=== PATIENT | male | born 1940 | race Caucasian/White ===

== ENCOUNTER 2016-06-05 08:25 | Outpatient (CLI) | payer MEDICARE, OTHER | END 2016-06-05 08:26 | disposition home or self-care (01) | DX: I25.10 Atherosclerotic heart disease of native coronary artery without angina pectoris (principal); R97.20 Elevated prostate specific antigen [PSA]; D47.3 Essential (hemorrhagic) thrombocythemia ==

== ENCOUNTER 2016-08-01 06:54 | Day surgery (SDC) | payer MEDICARE, OTHER ==
[2016-08-01] MEDS ORDERED: LACTATED RINGERS 1,000 ML IV ONE (07:39)
[2016-08-01] MEDS ORDERED: fentaNYL 100 MCG/2 ML VIAL IVP ONE (08:13)
[2016-08-01] MEDS ORDERED: MIDAZOLAM 2 MG/2 ML VIAL IVP ONE (08:13)
== END 2016-08-01 06:55 | disposition home or self-care (01) ==
PROC: 0DJD8ZZ Inspection of Lower Intestinal Tract, Via Natural or Artificial Opening Endoscopic (ICD-10-PCS; principal; 2016-08-01 08:15)
DX: K57.32 Diverticulitis of large intestine without perforation or abscess without bleeding (principal); K57.30 Diverticulosis of large intestine without perforation or abscess without bleeding; K64.4 Residual hemorrhoidal skin tags; K64.8 Other hemorrhoids; Z79.82 Long term (current) use of aspirin; I25.10 Atherosclerotic heart disease of native coronary artery without angina pectoris; Z95.0 Presence of cardiac pacemaker; Z95.5 Presence of coronary angioplasty implant and graft
CPT/HCPCS: 45378; J7120

== ENCOUNTER 2017-03-19 08:35 | Outpatient (CLI) | payer MEDICARE, OTHER | END 2017-03-19 08:36 | disposition home or self-care (01) | LOC: LAB.WCP 08:35 | PROVIDERS: ATTEND Physician Assistant Medical | DX: N39.0 Urinary tract infection, site not specified (principal) | CPT/HCPCS: 87077; 87086 ==

== ENCOUNTER 2017-04-09 08:00 | Outpatient (CLI) | payer MEDICARE, OTHER | END 2017-04-09 08:01 | disposition home or self-care (01) | LOC: LAB.WCP 08:00 | PROVIDERS: ATTEND Physician Assistant Medical | DX: N39.0 Urinary tract infection, site not specified (principal) | CPT/HCPCS: 87086 ==

== ENCOUNTER 2017-07-29 10:22 | Outpatient (CLI) | payer MEDICARE, OTHER | END 2017-07-29 10:23 | disposition home or self-care (01) | LOC: SC 10:22 | PROVIDERS: ATTEND Internal Medicine Pulmonary Disease | DX: R06.83 Snoring (principal); I25.10 Atherosclerotic heart disease of native coronary artery without angina pectoris | CPT/HCPCS: 99203; G0463; 99212 ==

== ENCOUNTER 2017-09-12 21:36 | Outpatient (CLI) | payer MEDICARE, OTHER | END 2017-09-12 21:37 | disposition home or self-care (01) | LOC: SC 21:36 | PROVIDERS: ATTEND Internal Medicine Pulmonary Disease | DX: G47.61 Periodic limb movement disorder (principal) | CPT/HCPCS: 95810 ==

== ENCOUNTER 2017-10-15 13:59 | Outpatient (CLI) | payer MEDICARE, OTHER | END 2017-10-15 14:00 | disposition home or self-care (01) | LOC: SC 13:59 | PROVIDERS: ATTEND Nurse Practitioner Family | DX: R06.83 Snoring (principal); G47.61 Periodic limb movement disorder; G47.00 Insomnia, unspecified | CPT/HCPCS: 99214; G0463; 99212 ==

== ENCOUNTER 2017-10-24 07:30 | Outpatient (CLI) | payer MEDICARE, OTHER ==
[2017-10-24 12:53] LABS: CHOL/HDL RATIO 4.5 (<5.0); CHOLESTEROL 168 mg/dL; HDL CHOLESTEROL 37 mg/dL; LDL CHOLESTEROL,CALCULATED 115 mg/dL; LDL/HDL RATIO 3.1 (<3.6); VLDL CHOLESTEROL 16 mg/dL
== END 2017-10-24 07:31 | disposition home or self-care (01) ==
LOC: LAB.WCP 07:30
PROVIDERS: ATTEND Physician Assistant Medical
DX: I25.10 Atherosclerotic heart disease of native coronary artery without angina pectoris (principal); R53.83 Other fatigue
CPT/HCPCS: 36415; 80061; 82728; 83721

== ENCOUNTER 2018-03-17 08:01 | Outpatient (CLI) | payer MEDICARE, OTHER ==
[2018-03-17 08:29] LABS: BASOPHILS # (AUTO) 0.1 10^3/uL (0.0-0.1); BASOPHILS % (AUTO) 0.8 %; EOSINOPHILS # (AUTO) 0.2 10^3/uL (0.0-0.7); EOSINOPHILS % (AUTO) 1.3 %; HGB - HEMOGLOBIN 16.1 g/dL (14.0-18.0); LYMPHOCYTES # (AUTO) 1.1 10^3/uL (1.5-3.5); LYMPHOCYTES % (AUTO) 9.2 %; MEAN CORPUSCULAR HEMOGLOBIN 46.6 pg (27.0-31.0); MEAN CORPUSCULAR HGB CONC 35.4 g/dL (32.0-36.0); MEAN PLATELET VOLUME 9.5 fL (7.4-11.4); MONOCYTES % (AUTO) 8.2 %; NEUTROPHILS % (AUTO) 80.5 %; PLT - PLATELET COUNT 482 10^3/uL (130-450); RED BLOOD COUNT 3.44 10^6/uL (4.70-6.10); RED CELL DISTRIBUTION WIDTH 13.2 % (12.0-15.0); WHITE BLOOD COUNT 12.4 x10^3/uL (4.8-10.8)
[2018-03-17 08:32] LABS: MEAN CORPUSCULAR VOLUME 131.7 fL (80.0-94.0)
== END 2018-03-17 08:02 | disposition home or self-care (01) ==
LOC: LAB 08:01
PROVIDERS: ATTEND Radiology Therapeutic Radiology
DX: D47.1 Chronic myeloproliferative disease (principal)
CPT/HCPCS: 36415; 85025

== ENCOUNTER 2018-04-09 17:32 | Inpatient (IN) | payer MEDICARE, OTHER ==
--- NOTE | 2018-04-09 18:39 | XRAY Report ---
Reason: chest pain Procedure Date: 04/09/2018 Accession Number: [id number] / [id number] Procedure: XR - Chest 1 View X-Ray CPT Code: 85708 FULL RESULT: EXAM: CHEST RADIOGRAPHY EXAM DATE: 04/09/2018 06:27 PM. CLINICAL HISTORY: Chest pain. Cough. COMPARISON: CHEST 2 VIEW PA/LAT 04/08/2018 10:09 AM. TECHNIQUE: 1 view. FINDINGS: Lungs/Pleura: Large left pleural effusion, significantly worse, with overlying atelectasis/infiltrate. Otherwise clear lungs. No pneumothorax. No right effusion. The Mediastinum: Prior CABG. Heart size obscured by large pleural effusion. Other: No bony abnormalities noted. IMPRESSION: Large left pleural effusion, significantly increased since prior, with overlying atelectasis/infiltrate. RADIA
[2018-04-09 18:46] LABS: BASOPHILS # (AUTO) 0.3 10^3/uL (0.0-0.1); BASOPHILS % (AUTO) 0.8 %; EOSINOPHILS # (AUTO) 0.4 10^3/uL (0.0-0.7); EOSINOPHILS % (AUTO) 1.4 %; HGB - HEMOGLOBIN 14.1 g/dL (14.0-18.0); LYMPHOCYTES # (AUTO) 1.3 10^3/uL (1.5-3.5); LYMPHOCYTES % (AUTO) 4.2 %; MEAN CORPUSCULAR HEMOGLOBIN 39.7 pg (27.0-31.0); MEAN CORPUSCULAR HGB CONC 32.8 g/dL (32.0-36.0); MEAN CORPUSCULAR VOLUME 121.1 fL (80.0-94.0); MEAN PLATELET VOLUME 9.4 fL (7.4-11.4); MONOCYTES # (AUTO) 2.3 10^3/uL (0.0-1.0); MONOCYTES % (AUTO) 7.3 %; NEUTROPHILS # (AUTO) 27.4 10^3/uL (1.5-6.6); NEUTROPHILS % (AUTO) 86.3 %; RED BLOOD COUNT 3.54 10^6/uL (4.70-6.10); RED CELL DISTRIBUTION WIDTH 20.5 % (12.0-15.0); WHITE BLOOD COUNT 31.8 x10^3/uL (4.8-10.8)
[2018-04-09 18:49] LABS: ALBUMIN 3.2 g/dL (3.2-5.5); ALBUMIN/GLOBULIN RATIO 0.8 (1.0-2.2); BILIRUBIN,TOTAL 1.5 mg/dL (0.2-1.0); CALCIUM 8.6 mg/dL (8.5-10.3); CREATININE 1.1 mg/dL (0.6-1.2); TOTAL PROTEIN 7.3 g/dL (6.7-8.2)
[2018-04-09 18:51] LABS: PLT - PLATELET COUNT 1020 10^3/uL (130-450)
[2018-04-09 19:25] LABS: PLATELET ESTIMATE, MANUAL INCREASED (>450,000) (NORMAL); PLATELET MORPHOLOGY 2+ GIANT PLATELETS (NORMAL)
[2018-04-09] MEDS ORDERED: SODIUM CHLORIDE FLUSH 0.9% 10 ML SYRINGE IVP PRN (20:49)
[2018-04-09] MEDS ORDERED: ONDANSETRON 4 MG/2 ML VIAL IVP PRN (20:49)
[2018-04-09] MEDS ORDERED: ONDANSETRON ODT 4 MG TABLET TL PRN (20:49)
--- NOTE | 2018-04-09 21:15 | ED Physician Documentation ---
PD HPI DYSPNEA - Stated complaint Stated Complaint: SOA - Chief complaint Chief Complaint: Cardiac - History obtained from History obtained from: Patient, Family - History of Present Illness Timing - onset: How many days ago (5) Timing - duration: Days (5) Timing - details: Gradual onset, Still present, Waxing and waning Pain level max: 0 Pain level now: 0 Inciting event(s): No: URI, Exercise, Immobilization/travel Improved by: Rest Worsened by: Exertion, Coughing Associated symptoms: Fever, Cough, Chest pain / discomfort (Only with coughing). No: Hemoptysis, Wheezing Similar symptoms before: Diagnosis (Possible pneumonia) Recently seen: Clinic (Seen by PCP a couple of days ago and placed on Amoxil) - Additional information Additional information: 77-year-old male with history of basal cell carcinoma mostly in the face and being treated with radiation and blood dyscrasia or cancer per here with complaint of cough and shortness of breath for the past 5-6 days. Was seen by his primary doctor a couple of days ago and the chest x-ray could be possible pneumonia so he was started. Patient stated that he tends to have nasal congestion and this makes breathing a little bit harder. Denies any trauma, travel or recent hospitalization or sick contacts. Review of Systems Ten Systems: 10 systems reviewed and negative Constitutional: reports: Fever Cardiac: reports: Chest pain / pressure (Only with coughing). denies: Palpitations Respiratory: reports: Dyspnea (With exertion), Cough (Dry cough). denies: Hemoptysis, Wheezing GI: denies: Abdominal Pain Skin: reports: Rash (On the face related to radiation of basal cell carcinoma in the skin) Neurologic: denies: Generalized weakness PD PAST MEDICAL HISTORY - Past Medical History Cardiovascular: High cholesterol, Coronary artery disease, Arrhythmia, Other Respiratory: Shortness of breath, Other Endocrine/Autoimmune: None GI: Other : Benign prostate hypertrophy HEENT: Chronic sinusitis, Chronic hearing loss Psych: None Musculoskeletal: Osteoarthritis Derm: Other - Past Surgical History Past Surgical History: Yes General: Appendectomy, Colonoscopy, Other Ortho: Knee replacement Cardiovascular: CABG, Coronary stent, Pacemaker HEENT: Tonsil/Adenoidectomy Derm: Skin cancer surgery - Present Medications Home Medications: Ambulatory Orders Medication Instructions Recorded Confirmed Lactobacillus Acidophilus 1 each PO DAILY 10/20/12 02/03/18 [Acidophilus] Multivitamin [Multivitamins] 1 each PO DAILY 10/20/12 02/03/18 RX: Aspirin Chewable [[place] 81 mg PO DAILY 10/20/12 02/03/18 Aspirin] Nitroglycerin [Nitrostat] 0.4 mg SL Q5MIN PRN 02/16/13 02/03/18 Amoxicillin/Potassium Clav 1 04/09/18 [Amox-Clav 875-125 mg Tablet] RX: traMADol [Ultram] 04/09/18 - Allergies Allergies/Adverse Reactions: Allergies Allergy/AdvReac Type Severity Reaction Status Date / Time No Known Drug Allergies Allergy Verified 04/09/18 17:38 - Social History Does the pt smoke?: No Smoking Status: Never smoker Does the pt have substance abuse?: No - Immunizations Immunizations are current?: Yes PD ED PE NORMAL - Vitals Vital signs reviewed: Yes - General General: Alert and oriented X 3, No acute distress, Well developed/nourished - HEENT HEENT: EOMI, Moist mucous membranes, Pharynx benign - Neck Neck: Supple, no meningeal sign - Cardiac Cardiac: RRR, No murmur - Respiratory Respiratory: No respiratory distress, Clear bilaterally - Abdomen Abdomen: Normal bowel sounds, Soft, Non tender, Non distended - Derm Derm: Warm and dry, Other (Face particularly in the nose and around the area where radiation occurs is mildly reddened. Noted lip and on the left cheek skin lesions.) - Extremities Extremities: No deformity - Neuro Neuro: Alert and oriented X 3, Normal speech - Psych Psych: Normal mood, Normal affect Results - Vitals Vitals: Vital Signs - 24 hr 04/09/18 04/09/18 17:34 19:26 Temperature 37.5 C Heart Rate 88 74 Respiratory 30 H 30 H Rate Blood Pressure 159/82 H 122/67 O2 Saturation 90 L 94 Oxygen O2 Source Nasal cannula Oxygen Flow Rate 2 - EKG (time done) 1738 Rate: Rate (enter#) Rhythm: NSR [place]: Normal Intervals: Normal [place] QRS: Normal Ischemia: Normal ST segments - Labs Labs: Laboratory Tests 04/09/18 04/09/18 04/09/18 18:08 18:31 18:31 WBC 31.8 H RBC 3.54 L Hgb 14.1 Hct 42.8 MCV 121.1 H MCH 39.7 H MCHC 32.8 RDW 20.5 H Plt Count 1020 H* MPV 9.4 Neut # (Auto) 27.4 H Lymph # (Auto) 1.3 L [place] # (Auto) 2.3 H Eos # (Auto) 0.4 Baso # (Auto) 0.3 H Absolute Nucleated RBC 0.01 Nucleated RBC % 0.0 Manual Slide Review Indicated WBC Morphology NORMAL APPEARANCE Platelet Estimate INCREASED (>450,000) Platelet Morphology 2+ GIANT PLATELETS RBC Morph Micro Appear 2+ ANISOCYTOSIS PT INR Sodium 133 L Potassium 4.5 Chloride 99 L Carbon Dioxide 24 Anion Gap 10.0 BUN 32 H Creatinine 1.1 Estimated GFR (MDRD) 65 L Glucose 131 H Calcium 8.6 Total Bilirubin 1.5 H AST 17 ALT 18 Alkaline Phosphatase 118 Troponin I 0.04 B-Natriuretic Peptide Total Protein 7.3 Albumin 3.2 Globulin 4.1 Albumin/Globulin Ratio 0.8 L Lipase 19 L 04/09/18 04/09/18 18:31 18:31 WBC RBC Hgb Hct MCV MCH MCHC RDW Plt Count MPV Neut # (Auto) Lymph # (Auto) [place] # (Auto) Eos # (Auto) Baso # (Auto) Absolute Nucleated RBC Nucleated RBC % Manual Slide Review WBC Morphology Platelet Estimate Platelet Morphology RBC Morph Micro Appear PT 19.3 H INR 1.7 H Sodium Potassium Chloride Carbon Dioxide Anion Gap BUN Creatinine Estimated GFR (MDRD) Glucose Calcium Total Bilirubin AST ALT Alkaline Phosphatase Troponin I B-Natriuretic Peptide 202 H Total Protein Albumin Globulin Albumin/Globulin Ratio Lipase PD MEDICAL DECISION MAKING - ED course Complexity details: reviewed results, re-evaluated patient (2030Patient laying in bed in no acute distress. Patient coughs intermittently but nonproductively. Patient denies any chest pain or shortness of breath when he is not coughing or exerting himself. Pulse ox 93% with 2 L of nasal cannula.), considered differential (Pneumonia, PE, ACS, bronchitis, pleural effusion, nasal congestion, URI), d/w patient, d/w family (2030Patient and informed of test results,Stated she is aware of all the abnormal labs and agreed to an admission. ), d/w PMD (2036Case discussed with hospitalist Dr Thornton. She stated she will consult patient's oncologist prior to admitting.2099Dr. stated she will admit the patient but will consult the general surgeon so the patient can have a thoracocentesis tonight.) Departure - Departure Disposition: 66 [facility] DC/Xfer Clinical Impression: Pleural effusion, Thrombocytosis Leukocytosis Qualifiers: Leukocytosis type: unspecified Qualified Code(s): D72.829 - Elevated white blood cell count, unspecified Condition: Stable Discharge Date/Time: 04/09/18 23:32
[2018-04-09 21:23] LABS: INR 1.7 (0.8-1.2); PT - PROTHROMBIN TIME 19.3 secs (9.9-12.6)
--- NOTE | 2018-04-09 21:30 | CONSULTATION NOTE ---
Referring Provider Consult Date: 04/09/18 Chief Complaint - Chief Complaint Chief Complaint: dyspnea History of Present Illness - History of Present Illness HPI Comment/Other: 77 yo man re-presenting with SOB and a rapidly-expanding left pleural effusion. History - Past Medical History Cardiovascular: reports: High cholesterol, Coronary artery disease, Arrhythmia, Other Respiratory: reports: Shortness of breath, Other Endocrine/Autoimmune: reports: None GI: reports: Other : reports: Benign prostate hypertrophy HEENT: reports: Chronic sinusitis, Chronic hearing loss Psych: reports: None Musculoskeletal: reports: Osteoarthritis Derm: reports: Other MRSA Hx?: No - Past Surgical History General: reports: Appendectomy, Colonoscopy, Other Ortho: reports: Knee replacement Cardiovascular: reports: CABG, Coronary stent, Pacemaker HEENT: reports: Tonsil/Adenoidectomy Derm: reports: Skin cancer surgery Meds/Allgy - Home Medications Home Medications: Ambulatory Orders Medication Instructions Recorded Confirmed Aspirin Chewable [[place] 81 mg PO DAILY 10/20/12 02/03/18 Aspirin] Lactobacillus Acidophilus 1 each PO DAILY 10/20/12 02/03/18 [Acidophilus] Multivitamin [Multivitamins] 1 each PO DAILY 10/20/12 02/03/18 Nitroglycerin [Nitrostat] 0.4 mg SL Q5MIN PRN 02/16/13 02/03/18 Amoxicillin/Potassium Clav 1 04/09/18 [Amox-Clav 875-125 mg Tablet] traMADol [Ultram] 04/09/18 - Allergies Allergies/Adverse Reactions: Allergies Allergy/AdvReac Type Severity Reaction Status Date / Time No Known Drug Allergies Allergy Verified 04/09/18 17:38 Review of Systems - Respiratory Respiratory: reports: Cough, SOB at rest Exam - Vital Signs Vital Signs: Vital Signs x48h Temp Pulse Resp BP Pulse Ox 04/09/18 19:26 74 30 H 122/67 94 04/09/18 17:34 37.5 C 88 30 H 159/82 H 90 L - Physical Exam General Appearance: positive: Mild distress Eyes Bilateral: positive: Normal inspection ENT: positive: ENT inspection nml Neck: positive: Nml inspection Respiratory: positive: Other (decreased BS on left) Abdomen: positive: Non-tender Back: positive: Nml inspection Skin: positive: Color nml Extremities: positive: Non-tender Neurologic/Psychiatric: positive: Oriented x3 Conclusion/Plan - Diagnosis Diagnosis: left pleural effusion - Plan Plan: Pt is in respiratory distress with a large left pleural effusion. After discussion with the pt, we will place a CT. - Lab Results Fish Bones: 04/09/18 18:31 04/09/18 18:31 - Diagnostic Imaging Results Diagnostic Imaging Results: positive: Final report reviewed
[2018-04-09] MEDS ORDERED: LIDOCAINE 1% 2 ML VIAL ONE (21:52)
[2018-04-09] MEDS ORDERED: LIDOCAINE 1%-EPI 1:100000 30 ML MDV ONE (22:07)
--- NOTE | 2018-04-09 22:27 | PROCEDURE REPORT ---
Hospitalist Procedure Note - Procedure Note Procedure Note: Left chest tube placement The risks and benefits were explained to the pt and he agreed to the procedure. The left chest was prepped and draped and timeout performed. 15 ml of local anesthetic was infused into the subcutaneous tissue and intercostal muscle overlying the 6th intercostal space, mid-axillary line. A 2 cm incision was made in the skin overlying the infusate. The pleural space was entered bluntly. A [address] was inserted into the pleural space. Light yellow fluid was obtained. The tube was connected to the pleurovac and secured with stitched and tape. A CXR was ordered. EBL 4 ml Comp none
--- NOTE | 2018-04-09 22:45 | XRAY Report ---
Reason: post chest tube insertion Procedure Date: 04/09/2018 Accession Number: [id number] / [id number] Procedure: XR - Chest 1 View X-Ray CPT Code: 57724 FULL RESULT: EXAM: CHEST RADIOGRAPHY EXAM DATE: 04/09/2018 10:38 PM. CLINICAL HISTORY: Post chest tube insertion. COMPARISON: An earlier study of this same date. TECHNIQUE: 1 view. FINDINGS: Lungs/Pleura: Moderate left pleural effusion, decreased since earlier study. Diffuse hazy prominence of lung markings. Atelectasis in left base. No definite pneumothorax. Mediastinum: Moderate to marked cardiomegaly, probably unchanged. Diffuse vascular fullness. Other: Permanent pacemaker on the left with intact leads. Status post median sternotomy and other chronic findings. Left chest tube in place. IMPRESSION: Slightly decreased left pleural effusion following chest tube placement. RADIA
--- NOTE | 2018-04-09 23:17 | HISTORY & PHYSICAL EXAMINATION ---
Chief Complaint - Chief Complaint Chief Complaint: Pleuritis History of Present Illness - Admitted From Admitted From:: ER - History Obtained From Records Reviewed: Yes History obtained from: Patient and Exam Limitations: Hearing Aid - History of Present Illness HPI Comment/Other: 77 yo male pt with JAK2 positive, myeloproliferative neoplasm, CAD, CABG w/ 2 stents, chronic sinusitis, bronchitis, anemia from hydroxyurea treatment, squamous and basal cell carcinoma presents to the emergency department with pleuristic chest pain induced by cough of 10 days. Pt has been receiving 22 radiation treatments for squamous cell carcinoma since March 09. Squamous cell carcinoma located on left nares and central upper vermilion border. Pt hydroxyurea treatment for was halted on March 07 due to radiation treatment. Pt states 10 days ago he started to have a productive cough with yellow, brown sputum. Pt states lethargy, decreased appetite over past 3 days and weight gain of 8 pounds during this duration. Pt has received over the counter cough suppressants with no suppression. Pt states the pain induced by the cough is located near the left 4th rib and 10-12th rib. Pt states he had one episode of nausea during a coughing episode, but denies vomiting, fever, chills, chest pain. Pt was seen by Sunsihne STALLINGS, 1 day prior to visit and a chest x- ray was completed revealing effusion and pleural thickening - he was not tachypneic, afebrile, non-toxic. Pt continued to have productive cough and pleuritic pain. Pt also confirms abdominal pain stating that he has not had a bowel movement for 4 days which is unusual for him. His states she gave him prunes, but he has not had a bm. In the ER he was afebrile. Tachypneic, hypoxic, decreased sounds left lung, wheezing on the right. CXR showed a much larger left pleural effusion that yesterday. Surgery was consulted and left sided chest tube placed for pleural effusion. Pt has had 1100 cc of fluid drained from his left pluritic space. Pt confirms that his shortness of breath is improved. History - Past Medical History Cardiovascular: reports: High cholesterol, Coronary artery disease, Arrhythmia, Other (CABG with 2 stents placed ) Respiratory: reports: Shortness of breath, Other Neuro: reports: None Endocrine/Autoimmune: reports: None GI: reports: Diverticulitis, Cholelithiasis UI APPLICATION DEVELOPER: reports: None : reports: Benign prostate hypertrophy HEENT: reports: Chronic sinusitis, Chronic hearing loss Psych: reports: None Musculoskeletal: reports: Osteoarthritis Derm: reports: Other (Squamous and Basal Cell Carcinoma) MRSA Hx?: No - Past Surgical History General: reports: Appendectomy, Colonoscopy, Other Ortho: reports: Knee replacement Cardiovascular: reports: CABG, Coronary stent, Pacemaker HEENT: reports: Tonsil/Adenoidectomy Derm: reports: Skin cancer surgery - Family & Social History Family History: Mother: , Asthma, CAD, Father: , CVA/TIA, Brother: Living arrangement: At home Living Situation: With spouse/s.o. Social History Notes: 77 yo father of 2 boys lives with his . Retired [employer] in 1987 moved [place] [facility]. 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 Have sailed all around the world. Pt grew up with smoking parents, but did not smoke. He drinks 2 scotches per night. He denies any illicit drug use. - Substance History Use: Uses substance without health or social issues: Alcohol Abuse: Recurrent use of substance despite neg consequences: NONE Dependence: Experiences withdrawal or developed tolerances: NONE - POLST Patient has POLST: No POLST Status: Full Code Meds/Allgy - Home Medications Home Medications: Ambulatory Orders Medication Instructions Recorded Confirmed Aspirin Chewable [[facility] [place] 81 mg PO DAILY 10/20/12 02/03/18 Aspirin] Lactobacillus Acidophilus 1 each PO DAILY 10/20/12 02/03/18 [Acidophilus] Multivitamin [Multivitamins] 1 each PO DAILY 10/20/12 02/03/18 Nitroglycerin [Nitrostat] 0.4 mg SL Q5MIN PRN 02/16/13 02/03/18 Amoxicillin/Potassium Clav 1 04/09/18 [Amox-Clav 875-125 mg Tablet] traMADol [Ultram] 04/09/18 - Allergies Allergies/Adverse Reactions: Allergies Allergy/AdvReac Type Severity Reaction Status Date / Time No Known Drug Allergies Allergy Verified 04/09/18 17:38 Review of Systems - Constitutional Constitutional: reports: Fatigue, Weakness, Poor appetite, Weight gain. denies: Fever, Chills - Eyes Eyes: denies: Pain, Blurred vision - Ears, Nose & Throat Ears, Nose & Throat: reports: Nasal pain (Squamous and Basal Cell Carcinoma), Nasal discharge (Squamous and Basal Cell Carcinoma), Nasal congestion (Chronic sinusitis), Postnasal drainage (Chronic sinusitis). denies: Ear pain - Cardiovascular Cariovascular: denies: Irregular heart rate, Palpitations - Respiratory Respiratory: reports: Cough, Sputum production (yellow, green), Wheezing (bilateral), SOB at rest, SOB with exertion, Pleuritic pain (right sided 4th rib to 10th rib) - Gastrointestinal Gastrointestinal: reports: Abdominal pain, Constipation (Last BM) - Genitourinary Genitourinary: denies: Dysuria, Frequency - Musculoskeletal Musculoskeletal: denies: Muscle pain - Integumentary Integumentary: reports: Lesions (radiation skin changes to nasal border and netta border), Dryness (nasal and upper netta border) - Neurological Neurological: reports: General weakness. denies: Headache - Psychiatric Psychiatric: denies: Depression - Endocrine Endocrine: denies: Polyuria - Hematologic/Lymphatic Hematologic/Lymphatic: reports: Anemia (Previously due to Hydroxyurea treatment) Prior Level of Functionality: Pt is retired from the [employer] where he was stationed in the [facility] and [facility]. 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 Pt has lived and sailed all over the world. Pt is able to ambulate on his own and assists his with ADL. Pt does not use a walker or any walk assistance. Exam - Vital Signs Reviewed Vital Signs: Yes Vital Signs: Vital Signs x48h Temp Pulse Resp BP Pulse Ox 04/09/18 22:37 79 24 125/77 93 04/09/18 22:19 74 32 H 115/63 93 04/09/18 22:11 76 30 H 137/66 H 93 04/09/18 22:09 65 27 H 119/64 92 04/09/18 22:01 76 93 H 116/73 4 L 04/09/18 19:26 74 30 H 122/67 94 04/09/18 17:34 37.5 C 88 30 H 159/82 H 90 L - Physical Exam General Appearance: positive: Alert, Mild distress (Pleuritic chest pain with chest tube placed) Eyes Bilateral: positive: PERRL, EOMI ENT: positive: Other (left hearing aid). negative: ENT inspection nml (Squamous cell carcinoma on left nasal border and upper netta), No signs of dehydration (crusted lesions from radiation) Neck: positive: Nml inspection Respiratory: positive: No respiratory distress, Wheezes (bilaterally), Other (chest tube site hurts). negative: Breath sounds nml (decreased breath sound on left) Cardiovascular: positive: Regular rate & rhythm, No murmur, No gallop Peripheral Pulses: positive: 2+ Abdomen: positive: Nml bowel sounds, Tenderness (diffuse). negative: Non-tender (diffuse), No distention (mild) Rectal: negative: Bloody stool Back: positive: Nml inspection Skin: positive: Dry, Other (squamous cell on left nasal nare and upper netta border, the surrounding skin is pink, edematous, warm, dry (no oozing), applying petroleum jelly) Extremities: positive: Non-tender, Full ROM, Nml appearance Neurologic/Psychiatric: positive: Oriented x3, CN's nml (2-12), Motor nml, Mood/affect nml Conclusion/Plan - Problem List (1) Acute respiratory failure with hypoxia Conclusion/Plan: Pt does not require oxygen at home but here he is oxygen saturation at 94% on 4L. Pt seen by PCP one day prior with productive cough following radiation therapy to face for skin cancer. Pt chest xray reveals increased large left pleural effusion, significantly increased since prior, with overlying ate lectasis/infiltrate. Pt tachypnic and toxic. Chest tube placement by general surgeon consult. Plueral fluid and blood cultures sent. Erythromycin and Rocephin started. Pt admitted to service. Plan: admit inpatient status hypoxia and resp failure improved with thoracentesis in ER. Pleural fluid and blood cultures sent off Azithromycin and Rocephin with alterations based on culture/sensitivity Chest tube monitor output continue pressure based on surgery consult Monitor oxygen saturation (2) Pneumonia Conclusion/Plan: Large left pleural effusion, significantly increased since prior, with overlying atelectasis/infiltrate. Patient received chest tube with surgery consult. 1100 cc pleural fluid drained. Pt started on Azithromycin and Rocephin with blood and pleural fluid sent for diagnostics. Plan: Blood and Pleural fluid diagnostics to be reviewed Chest tube monitored with pressure based on surgery consult Azithromycin and Rocephin with alterations based on culture/sensitivities Monitor oxygen saturation Qualifiers: Pneumonia type: due to unspecified organism Laterality: left Lung location: unspecified part of lung Qualified Code(s): J18.9 - Pneumonia, unspecified organism (3) Pleural effusion Conclusion/Plan: Chest X-ray: FINDINGS: Lungs/Pleura: Large left pleural effusion, significantly worse, with overlying atelectasis/infiltrate. Otherwise clear lungs. No pneumothorax. No right effusion. The Mediastinum: Prior CABG. Heart size obscured by large pleural effusion. Other: No bony abnormalities noted. IMPRESSION: Large left pleural effusion, significantly increased since prior, with overlying atelectasis/infiltrate. Patient evaluated with increased pleural effusion from 1 day prior outpatient chest x-ray with failed outpatient treatment. Pt is tachypnic with a productive cough. 1100 cc of fluid drained from left pleural cavity following chest tube placement. Pleural fluid sent for diagnostics. Right now we are thinking his pleural effusion is from pneumonioa. Pt placed rocephin and azithromycin and will alter according to cultures and sensitivity. However, must consider other causes of pleural effusion such as neoplasm, chf, etc. Fluid sent for cell count, chemistries, culture AND cytologies. Plan: Blood and pleural diagnostics Chest tube placed, continue with pressure based on surgery consult azithromycin and Rocephin with alterations based on sensitivities (4) Myeloproliferative disorder Conclusion/Plan: Chronic issue being treated by Dr. Glass. Hydroxurea placed on hold March 07 due to radiation for squamous cell. As such platelets yasmani. Consulted physician international logistics coordinator for Dr. Glass and discussed the treatment plan with advise to treat admit and not transfer. Dr. Adler feels this may be bone marrow activation in the face of infection and would expect to see a rise in WBC and platelets. Advised to treat the infection and if WBC/platelets do not respond, consider transfer. Plan: Monitor CBC and platelet continue home medications will speak to Dr. Glass in am to see when to resume hydroxyurea. (5) Radiation dermatitis Conclusion/Plan: 22 rounds of radiation started on March 09 for squamous and Basal cell with last radiation on Friday. Pt radiation dermatitis on left nare and upper netta border. Plan: Petroleum for dryness Monitor erythema (6) Squamous cell carcinoma Conclusion/Plan: 22 radiation treatment within the past month for squamous cell and basal cell carcinoma Plan: Monitor radiation dermatitis (7) Basal cell carcinoma Conclusion/Plan: 22 radiation treatment within the past month for squamous cell and basal cell carcinoma Plan: Monitor radiation dermatitis Qualifiers: Basal cell carcinoma location: face Basal cell carcinoma face location: lip Qualified Code(s): C44.01 - Basal cell carcinoma of skin of lip (8) Hypertension Conclusion/Plan: Chronic condition controlled outpatient. Inpatient vitals of 137-115 systolic and 77-63 diastolic. Plan: Monitor vitals continue home medications Qualifiers: Hypertension type: essential hypertension Qualified Code(s): I10 - Essential (primary) hypertension (9) Periodic limb movement sleep disorder Conclusion/Plan: Chronic with treatment outpatient. Has already been seen by sleep lab and no AMAN. Plan: Monitor Continue outpatient treatment plan (10) BPH (benign prostatic hyperplasia) Conclusion/Plan: chronic issue with monitoring outpatient. Will make sure he doesn't develop LUTS while here. Plan: Monitor Continue outpatient treatment plan consider flomax if develops symptoms Qualifiers: Lower urinary tract symptom presence: symptoms absent Qualified Code(s): N40.0 - Benign prostatic hyperplasia without lower urinary tract symptoms - Lab Results Lab results reviewed: Yes Fish Bones: 04/09/18 18:31 04/09/18 18:31 - Diagnostic Imaging Results Diagnostic Imaging Results: positive: Final report reviewed Diagnostic Imaging Results Comments: Final Report PT NAME: MATTHIEU IVEY MR#: [id number] REG ER/ED AGE: 77 CI DT/TM: 04/09/18 PCP: Sunshine Gutierrez PA-C : 1940 ATT: SEX: M ORD: Ilda Bobby EXAM: [id number] XR/CXR1VW ([id number]) Reason: chest pain Procedure Date: 04/09/2018 Accession Number: [id number] / [id number] Procedure: XR - Chest 1 View X-Ray CPT Code: 21355 FULL RESULT: EXAM: CHEST RADIOGRAPHY EXAM DATE: 04/09/2018 06:27 PM. CLINICAL HISTORY: Chest pain. Cough. COMPARISON: CHEST 2 VIEW PA/LAT 04/08/2018 10:09 AM. TECHNIQUE: 1 view. FINDINGS: Lungs/Pleura: Large left pleural effusion, significantly worse, with overlying atelectasis/infiltrate. Otherwise clear lungs. No pneumothorax. No right effusion. The Mediastinum: Prior CABG. Heart size obscured by large pleural effusion. Other: No bony abnormalities noted. IMPRESSION: Large left pleural effusion, significantly increased since prior, with overlying atelectasis/infiltrate. [facility] Breastfeeding Peer Counselor: Reading Radiologist: Kanu Marino MD Releasing Radiologist: Kanu Marino MD Released Date Time: 04/09/181838 Report 38 cc: Sunshine Gutierrez PA-C; Ilda Bobby DO Principal Puncher Name: Kanu Marino Provider ID: [id number] Final Report PT NAME: MATTHIEU IVEY MR#: [id number] ADM IN/MS2 AGE: 77 CI DT/TM: 04/09/18 PCP: Sunshine Gutierrez PA-C : 1940 ATT: Autumn Paiz MD SEX: M ORD: Ilda Bobby DO EXAM: [id number] XR/CXR1VW ([id number]) Reason: post chest tube insertion Procedure Date: 04/09/2018 Accession Number: [id number] / [id number] Procedure: XR - Chest 1 View X-Ray CPT Code: 86943 FULL RESULT: EXAM: CHEST RADIOGRAPHY EXAM DATE: 04/09/2018 10:38 PM. CLINICAL HISTORY: Post chest tube insertion. COMPARISON: An earlier study of this same date. TECHNIQUE: 1 view. FINDINGS: Lungs/Pleura: Moderate left pleural effusion, decreased since earlier study. Diffuse hazy prominence of lung markings. Atelectasis in left base. No definite pneumothorax. Mediastinum: Moderate to marked cardiomegaly, probably unchanged. Diffuse vascular fullness. Other: Permanent pacemaker on the left with intact leads. Status post median sternotomy and other chronic findings. Left chest tube in place. IMPRESSION: Slightly decreased left pleural effusion following chest tube placement. [facility] Breastfeeding Peer Counselor: Reading Radiologist: Cornelius Barrett MD Releasing Radiologist: Cornelius Barrett MD Released Date Time: 04/09/182245 Report 45 cc: Sunshine Gutierrez PA-C; Ilda Bobby DO Principal Puncher Name: Cornelius Barrett Provider ID: [id number] - EKG Results EKG Interpreted Independently: Yes Core Measures - Anticipated LOS I expect patient to be DC'd or transferred within 96 hours.: Yes - DVT/VTE - Prophylaxis VTE/DVT Device ordered at admit?: Yes - Stroke - Rehab Assessment Rehab services assessment to be ordered?: No - AMI - Statin at Admit Aspirin Prescribed on Admit: No
[2018-04-10] MEDS: oxyCODONE 5 MG TABLET PO PRN ×3 (00:56→21:21)
[2018-04-10] MEDS: SODIUM CHLORIDE FLUSH 0.9% 10 ML SYRINGE IVP SCH ×3 (00:57→17:36)
[2018-04-10] MEDS ORDERED: IOVERSOL 320 50 ML VIAL ONE (06:04)
[2018-04-10 06:30] LABS: BASOPHILS % (AUTO) 0.5 %; EOSINOPHILS % (AUTO) 0.9 %; HGB - HEMOGLOBIN 13.7 g/dL (14.0-18.0); LYMPHOCYTES % (AUTO) 4.7 %; MEAN CORPUSCULAR HEMOGLOBIN 40.7 pg (27.0-31.0); MEAN CORPUSCULAR HGB CONC 33.2 g/dL (32.0-36.0); MEAN CORPUSCULAR VOLUME 122.7 fL (80.0-94.0); MEAN PLATELET VOLUME 9.3 fL (7.4-11.4); NEUTROPHILS % (AUTO) 86.9 %; RED BLOOD COUNT 3.36 10^6/uL (4.70-6.10); RED CELL DISTRIBUTION WIDTH 20.7 % (12.0-15.0); WHITE BLOOD COUNT 24.3 x10^3/uL (4.8-10.8)
[2018-04-10 06:33] LABS: CALCIUM 8.5 mg/dL (8.5-10.3)
[2018-04-10 06:36] LABS: PLT - PLATELET COUNT 914 10^3/uL (130-450)
[2018-04-10 06:38] LABS: ABNORMAL LYMPHS % (MANUAL) 0 %
[2018-04-10 07:07] LABS: BAND NEUTROPHILS % (MANUAL) 12 %; EOSINOPHILS # (MANUAL) 1.2 10^3/uL (0-0.7); LYMPHOCYTES # (MANUAL) 3.4 10^3/uL (1.5-3.5); LYMPHOCYTES % (MANUAL) 14 %; MONOCYTES # (MANUAL) 1.5 10^3/uL (0.0-1.0); NEUTROPHILS # (MANUAL) 18.2 10^3/uL (1.5-6.6); NEUTROPHILS % (MANUAL) 63 %
[2018-04-10 07:08] LABS: DIFFERENTIAL COMMENT MANUAL DIFFERENTIAL; PLATELET MORPHOLOGY 2+ GIANT PLATELETS (NORMAL)
[2018-04-10] MEDS ORDERED: IOPAMIDOL-300 100 ML VIAL ONE (07:30)
[2018-04-10] MEDS ORDERED: IOPAMIDOL-300 100 ML VIAL IVP ONE (08:45)
[2018-04-10] MEDS: LACTOBACILLUS RHAMNOSUS GG CAPSULE PO SCH (09:04)
[2018-04-10] MEDS: cefTRIAXone 2 GM in SODIUM CHLORIDE 0.9% MINIBAG 100 ML IV SCH (09:04)
[2018-04-10] MEDS: POLYETHYLENE GLYCOL 3350 17 GM PACKET PO SCH (09:05)
[2018-04-10] MEDS ORDERED: IOVERSOL 320 50 ML VIAL PO ONE (09:09)
--- NOTE | 2018-04-10 09:42 | CT Report ---
Reason: abd pain, hx of basal cell, stones Procedure Date: 04/10/2018 Accession Number: [id number] / [id number] Procedure: CT - Abdomen/Pelvis W/ CPT Code: FULL RESULT: EXAM: CT ABDOMEN AND PELVIS EXAM DATE: 04/10/2018 08:27 AM. CLINICAL HISTORY: Abd pain, hx of basal cell, stones. COMPARISONS: 04/23/2016. TECHNIQUE: Routine helical CT imaging was performed through the abdomen and pelvis. IV contrast: ISOVUE 300 100mL. Enteric contrast: No. Reconstructions: Coronal and sagittal. In accordance with CT protocol optimization, one or more of the following dose reduction techniques were utilized for this exam: automated exposure control, adjustment of mA and/or KV based on patient size, or use of iterative reconstructive technique. FINDINGS: L Liver: Normal. No masses. Gallbladder/Bile Ducts: Cholelithiasis Spleen: Enlarged 16 cm Pancreas: Normal. Adrenal Glands: Normal. Kidneys: Right kidney subcentimeter density too small to characterize mid pole. Left kidney unremarkable Peritoneal Cavity/Bowel: Diverticulosis most prominent in the sigmoid colon without inflammatory changes. No retroperitoneal adenopathy. No free fluid in the abdomen. Pelvic Organs: Bladder wall thickening anteriorly 11 mm. Prostate mildly enlarged with calcifications. No free fluid in the pelvis. Vasculature: No aneurysms or other significant abnormality. Bones: DJD spine right hip IMPRESSION: 1. Splenomegaly. 2. Cholelithiasis. 3. Bladder wall thickening anteriorly. 4. Diverticulosis [facility]
--- NOTE | 2018-04-10 09:43 | CT Report ---
Reason: hx basal cell, now w pleural effu abd pain Procedure Date: 04/10/2018 Accession Number: [id number] / [id number] Procedure: CT - Chest W/ CPT Code: FULL RESULT: EXAM: CT CHEST EXAM DATE: 04/10/2018 08:15 AM. CLINICAL HISTORY: Hx basal cell, now w pleural effu abd pain. COMPARISONS: 05/20/2014. TECHNIQUE: Routine helical CT imaging was performed through the chest. IV contrast: 100 cc Isovue-300. Reconstructions: Coronal and sagittal. In accordance with CT protocol optimization, one or more of the following dose reduction techniques were utilized for this exam: automated exposure control, adjustment of mA and/or KV based on patient size, or use of iterative reconstructive technique. FINDINGS: Lungs/Pleura: Loculated left pleural effusion. A portion of this is medial adjacent to the mediastinum measuring up to 1.8 cm transversely. Some of this is in the lateral, posterior lung base measuring up to 2.7 cm. Small amount of air in the pneumothorax at the lung base. Left-sided chest tube tip in the left lung apex. Atelectasis in the lingula. Consolidation or infiltrate in the left lower lobe superior, posterior and lateral. Small right effusion 1.2 cm with mild right basilar atelectasis. Mediastinum: Mildly prominent mediastinal lymph nodes including right precarinal 0.9 cm , right paratracheal 5 mm, subcarinal 1 cm, prevascular 5 mm. Trace pericardial effusion. Heart size mildly enlarged. 2-lead pacer tips in the right atrium and right ventricle. Poststernotomy. Bones: Degenerative changes in the spine. Poststernotomy. Other: None. IMPRESSION: 1. Loculated left effusion with portions in the anteromedial chest adjacent to the mediastinum 1.8 cm and portions along the left lung base 2.7 cm. Small amount of air in the pleural effusion at the left lung base. Left lower lobe consolidation or infiltrate. 2. Small right effusion 1.2 cm with mild right basilar atelectasis. 3. Mild mediastinal adenopathy [facility]
[2018-04-10] MEDS: AZITHROMYCIN INJ 500 MG in SODIUM CHLORIDE 0.9% 250 ML IV SCH (10:40)
--- NOTE | 2018-04-10 12:57 | PROVIDER PROGRESS NOTE ---
Subjective - Prog Note Date Prog Note Date: 04/10/18 Prog Note Time: 12:54 - Subjective Pt reports feeling: Improved (Reports improved breathing) Objective - Vital Signs/Intake & Output Vital Signs: Vital Signs x48h Temp Pulse Resp BP Pulse Ox 04/10/18 07:47 36.6 C 86 16 103/78 93 Intake & Output: Intake & Output 04/07/18 04/08/18 04/09/18 04/10/18 23:59 23:59 23:59 23:59 Intake Total 350 Output Total 3050 Balance -2700 - Objective General Appearance: positive: No acute distress Eyes Bilateral: positive: Normal inspection Respiratory: positive: Chest non-tender Cardiovascular: positive: Regular rate & rhythm Abdomen: positive: Non-tender Back: positive: Nml inspection Skin: positive: Color nml Extremities: positive: Non-tender Neurologic/Psychiatric: positive: Oriented x3 - Lab Results Fish Bones: 04/10/18 06:10 04/10/18 06:10 Other Labs: Lab Results x24hrs 04/10/18 04/10/18 04/09/18 Range/Units 06:10 06:10 18:31 WBC 24.3 H (4.8-10.8) x10^3/uL RBC 3.36 L (4.70-6.10) 10^6/uL Hgb 13.7 L (14.0-18.0) g/dL Hct 41.2 L (42.0-52.0) % MCV 122.7 H (80.0-94.0) fL MCH 40.7 H (27.0-31.0) pg MCHC 33.2 (32.0-36.0) g/dL RDW 20.7 H (12.0-15.0) % Plt Count 914 H* (130-450) 10^3/uL MPV 9.3 (7.4-11.4) fL Neut # (Auto) Not Reportable (1.5-6.6) 10^3/uL Lymph # (Auto) Not Reportable (1.5-3.5) 10^3/uL [place] # (Auto) Not Reportable (0.0-1.0) 10^3/uL Eos # (Auto) Not Reportable (0.0-0.7) 10^3/uL Baso # (Auto) Not Reportable (0.0-0.1) 10^3/uL Absolute Nucleated RBC Not Reportable x10^3/uL Total Counted 100 Band Neuts % (Manual) 12 H (0 - 10) % Abnorm Lymph % (Manual) 0 % Nucleated RBC % Not Reportable /100WBC Neutrophils # (Manual) 18.2 H (1.5-6.6) 10^3/uL Lymphocytes # (Manual) 3.4 (1.5-3.5) 10^3/uL Monocytes # (Manual) 1.5 H (0.0-1.0) 10^3/uL Eosinophils # (Manual) 1.2 H (0-0.7) 10^3/uL Basophils # (Manual) 0.0 (0-0.1) 10^3/uL Differential Comment MANUAL DIFFERENTIAL Manual Slide Review WBC Morphology (NORMAL) Platelet Estimate (NORMAL) Platelet Morphology 2+ GIANT PLATELETS (NORMAL) RBC Morph Micro Appear 1+ TEARDROP CELLS (NORMAL) PT 19.3 H (9.9-12.6) secs INR 1.7 H (0.8-1.2) Sodium 133 L (135-145) mmol/L Potassium 4.6 (3.5-5.0) mmol/L Chloride 100 L (101-111) mmol/L Carbon Dioxide 25 (21-32) mmol/L Anion Gap 8.0 (6-13) BUN 26 H (6-20) mg/dL Creatinine 1.0 (0.6-1.2) mg/dL Estimated GFR (MDRD) 73 L (>89) Glucose 123 H (70-100) mg/dL Calcium 8.5 (8.5-10.3) mg/dL Total Bilirubin (0.2-1.0) mg/dL AST (10-42) IU/L ALT (10-60) IU/L Alkaline Phosphatase (42-121) IU/L Troponin I (<0.49) ng/mL B-Natriuretic Peptide (5-100) pg/mL Total Protein (6.7-8.2) g/dL Albumin (3.2-5.5) g/dL Globulin (2.1-4.2) g/dL Albumin/Globulin Ratio (1.0-2.2) Lipase (22-51) U/L 04/09/18 04/09/18 04/09/18 Range/Units 18:31 18:31 18:31 WBC 31.8 H (4.8-10.8) x10^3/uL RBC 3.54 L (4.70-6.10) 10^6/uL Hgb 14.1 (14.0-18.0) g/dL Hct 42.8 (42.0-52.0) % MCV 121.1 H (80.0-94.0) fL MCH 39.7 H (27.0-31.0) pg MCHC 32.8 (32.0-36.0) g/dL RDW 20.5 H (12.0-15.0) % Plt Count 1020 H* (130-450) 10^3/uL MPV 9.4 (7.4-11.4) fL Neut # (Auto) 27.4 H (1.5-6.6) 10^3/uL Lymph # (Auto) 1.3 L (1.5-3.5) 10^3/uL [place] # (Auto) 2.3 H (0.0-1.0) 10^3/uL Eos # (Auto) 0.4 (0.0-0.7) 10^3/uL Baso # (Auto) 0.3 H (0.0-0.1) 10^3/uL Absolute Nucleated RBC 0.01 x10^3/uL Total Counted Band Neuts % (Manual) (0 - 10) % Abnorm Lymph % (Manual) % Nucleated RBC % 0.0 /100WBC Neutrophils # (Manual) (1.5-6.6) 10^3/uL Lymphocytes # (Manual) (1.5-3.5) 10^3/uL Monocytes # (Manual) (0.0-1.0) 10^3/uL Eosinophils # (Manual) (0-0.7) 10^3/uL Basophils # (Manual) (0-0.1) 10^3/uL Differential Comment Manual Slide Review Indicated WBC Morphology NORMAL APPEARANCE (NORMAL) Platelet Estimate INCREASED (>450,000) (NORMAL) Platelet Morphology 2+ GIANT PLATELETS (NORMAL) RBC Morph Micro Appear 2+ ANISOCYTOSIS (NORMAL) PT (9.9-12.6) secs INR (0.8-1.2) Sodium 133 L (135-145) mmol/L Potassium 4.5 (3.5-5.0) mmol/L Chloride 99 L (101-111) mmol/L Carbon Dioxide 24 (21-32) mmol/L Anion Gap 10.0 (6-13) BUN 32 H (6-20) mg/dL Creatinine 1.1 (0.6-1.2) mg/dL Estimated GFR (MDRD) 65 L (>89) Glucose 131 H (70-100) mg/dL Calcium 8.6 (8.5-10.3) mg/dL Total Bilirubin 1.5 H (0.2-1.0) mg/dL AST 17 (10-42) IU/L ALT 18 (10-60) IU/L Alkaline Phosphatase 118 (42-121) IU/L Troponin I (<0.49) ng/mL B-Natriuretic Peptide 202 H (5-100) pg/mL Total Protein 7.3 (6.7-8.2) g/dL Albumin 3.2 (3.2-5.5) g/dL Globulin 4.1 (2.1-4.2) g/dL Albumin/Globulin Ratio 0.8 L (1.0-2.2) Lipase 19 L (22-51) U/L // Range/Units 18:08 WBC (4.8-10.8) x10^3/uL RBC (4.70-6.10) 10^6/uL Hgb (14.0-18.0) g/dL Hct (42.0-52.0) % MCV (80.0-94.0) fL MCH (27.0-31.0) pg MCHC (32.0-36.0) g/dL RDW (12.0-15.0) % Plt Count (130-450) 10^3/uL MPV (7.4-11.4) fL Neut # (Auto) (1.5-6.6) 10^3/uL Lymph # (Auto) (1.5-3.5) 10^3/uL [place] # (Auto) (0.0-1.0) 10^3/uL Eos # (Auto) (0.0-0.7) 10^3/uL Baso # (Auto) (0.0-0.1) 10^3/uL Absolute Nucleated RBC x10^3/uL Total Counted Band Neuts % (Manual) (0 - 10) % Abnorm Lymph % (Manual) % Nucleated RBC % /100WBC Neutrophils # (Manual) (1.5-6.6) 10^3/uL Lymphocytes # (Manual) (1.5-3.5) 10^3/uL Monocytes # (Manual) (0.0-1.0) 10^3/uL Eosinophils # (Manual) (0-0.7) 10^3/uL Basophils # (Manual) (0-0.1) 10^3/uL Differential Comment Manual Slide Review WBC Morphology (NORMAL) Platelet Estimate (NORMAL) Platelet Morphology (NORMAL) RBC Morph Micro Appear (NORMAL) PT (9.9-12.6) secs INR (0.8-1.2) Sodium (135-145) mmol/L Potassium (3.5-5.0) mmol/L Chloride (101-111) mmol/L Carbon Dioxide (21-32) mmol/L Anion Gap (6-13) BUN (6-20) mg/dL Creatinine (0.6-1.2) mg/dL Estimated GFR (MDRD) (>89) Glucose (70-100) mg/dL Calcium (8.5-10.3) mg/dL Total Bilirubin (0.2-1.0) mg/dL AST (10-42) IU/L ALT (10-60) IU/L Alkaline Phosphatase (42-121) IU/L Troponin I 0.04 (<0.49) ng/mL B-Natriuretic Peptide (5-100) pg/mL Total Protein (6.7-8.2) g/dL Albumin (3.2-5.5) g/dL Globulin (2.1-4.2) g/dL Albumin/Globulin Ratio (1.0-2.2) Lipase (22-51) U/L Assessment/Plan - Problem List (1) Acute respiratory failure with hypoxia Impression: Pt appears to have stabilized after chest tube placement, which remains in good position and functioning well.
--- NOTE | 2018-04-10 13:34 | PROVIDER PROGRESS NOTE ---
Assessment/Plan - Problem List (1) CAP (community acquired pneumonia) Assessment/Plan: Pt on iv Zithromax and Ceftriaxone. No cough or sputum to culture. Monitor with imaging of chest intermittently. (2) Pleural effusion Assessment/Plan: Pt received a L sided chest tube last night and the surgeon is following along with us. Fluid was sent for analysis, all results are pending. (3) Myeloproliferative disorder Assessment/Plan: This patient's Hydroxyurea was stopped 5 weeks ago. His plt count and WBC are very elevated. The admission note stated that the Oncologist had recommended to see if the WBC and plts decrease after treatment of the infection and if not then to transfer the patient. Will ask for input from [facility], as to wether Hydroxyurea should be restarted now or not. Restart daily ASA for antiplatelet effect. (4) Radiation dermatitis Assessment/Plan: Will order magic mouthwash and Lidocaine 5% ointment for symptoms of pain, sine he uses a triple mouthwash and Aspercreme at home. Will order a soft diet as well. (5) BPH (benign prostatic hyperplasia) Qualifiers: Lower urinary tract symptom presence: symptoms absent Qualified Code(s): N40.0 - Benign prostatic hyperplasia without lower urinary tract symptoms Assessment/Plan: Continue home meds. (6) Skin cancer Assessment/Plan: Basal cell and Squamous cell CA, was getting radiation, causing the acute radiodermatitis (above). - Current Meds Current Meds: Current Medications Generic Name Dose Route Start Last Admin Trade Name Freq PRN Reason Stop Dose Admin Azithromycin 500 mg/ Sodium 250 mls @ 250 mls/hr 04/10/18 09:00 04/10/18 10:49 Chloride IV Infused DAILY MARIFER Infusion Ceftriaxone Sodium 2 gm/ 100 mls @ 200 mls/hr 04/10/18 09:00 04/10/18 10:39 Sodium Chloride IV Infused DAILY MARIFER Infusion Lactobacillus Rhamnosus 1 cap 04/10/18 08:00 04/10/18 09:04 Culturelle PO 1 cap DAILYWM MARIFER Administration Oxycodone HCl 5 mg 04/09/18 20:49 04/10/18 10:47 Roxicodone PO 5 mg Q4HR PRN Administration Pain 5 to 7 Polyethylene Glycol 17 gm 04/10/18 09:00 04/10/18 09:05 Miralax PO 17 gm DAILY MARIFER Administration Sodium Chloride 10 ml 04/10/18 01:00 04/10/18 09:05 Normal Saline Flush 0.9% IVP 10 ml 0100,[id number],1700 MARIFER Administration - Lab Result Fish Bone Diagrams: 04/10/18 06:10 04/10/18 06:10 - Additional Planning My Orders: My Active Orders 04/10/18 11:27 RT [Continuous Aerosol] [RC] CONT 04/10/18 13:14 Incentive Spirometry - RT [RC] .TID 04/10/18 13:19 Magic Mouthwash 30 ml PO Q4H PRN 04/10/18 14:00 Lidocaine Ointment 5% [Xylocaine Ointment 5%] 1 applic TOP QID 04/10/18 Lunch DIET [Soft Mechanical Diet] [DIET] Subjective - Subjective Patient Reports: Other (Mouth pain and facial pain at wound sites (from radiation gayle)) Objective Vital Signs: Vital Signs - 24 hr 04/09/18 04/09/18 04/09/18 17:34 19:26 22:01 Temperature 37.5 C Heart Rate 88 74 76 Heart Rate [ Brachial] Respiratory 30 H 30 H 93 H Rate Blood Pressure 159/82 H 122/67 116/73 Blood Pressure [Right Brachial artery] O2 Saturation 90 L 94 4 L 04/09/18 04/09/18 04/09/18 22:09 22:11 22:19 Temperature Heart Rate 65 76 74 Heart Rate [ Brachial] Respiratory 27 H 30 H 32 H Rate Blood Pressure 119/64 137/66 H 115/63 Blood Pressure [Right Brachial artery] O2 Saturation 92 93 93 04/09/18 04/09/18 04/09/18 22:37 23:11 23:19 Temperature 37.2 C Heart Rate 79 76 Heart Rate [ Brachial] Respiratory 24 28 H Rate Blood Pressure 125/77 126/71 Blood Pressure [Right Brachial artery] O2 Saturation 93 94 04/09/18 04/10/18 04/10/18 23:40 07:47 13:03 Temperature 36.7 C 36.6 C 36.6 C Heart Rate 88 Heart Rate [ 69 86 Brachial] Respiratory 18 16 32 H Rate Blood Pressure Blood Pressure 123/53 L 103/78 [Right Brachial artery] O2 Saturation 92 93 92 Oxygen O2 Source Room air Oxygen Flow Rate 2 I&O (Last 24 Hrs): Intake and Output Totals x24h 04/08/18 04/09/18 04/10/18 23:59 23:59 23:59 Intake Total 600 Output Total 3050 Balance -2450 General: Alert, Oriented x3 HEENT: Other ([place], wearing hearing aide on L, multiple dry eschars of upper lip, nose and L face) Neck: Supple, No JVD Neuro: Non Focal Cardiovascular: Regular rate, No murmurs Respiratory: Other (Diminished breath sounds both sides, no rales or wheezing) Extremities: No edema - Results Results: Laboratory Results WBC 24.3 x10^3/uL (4.8-10.8) H 04/10/18 06:10 RBC 3.36 10^6/uL (4.70-6.10) L 04/10/18 06:10 Hgb 13.7 g/dL (14.0-18.0) L 04/10/18 06:10 Hct 41.2 % (42.0-52.0) L 04/10/18 06:10 MCV 122.7 fL (80.0-94.0) H 04/10/18 06:10 MCH 40.7 pg (27.0-31.0) H 04/10/18 06:10 MCHC 33.2 g/dL (32.0-36.0) 04/10/18 06:10 RDW 20.7 % (12.0-15.0) H 04/10/18 06:10 Plt Count 914 10^3/uL (130-450) H* 04/10/18 06:10 MPV 9.3 fL (7.4-11.4) 04/10/18 06:10 Neut # (Auto) Not Reportable 04/10/18 06:10 Lymph # (Auto) Not Reportable 04/10/18 06:10 [place] # (Auto) Not Reportable 04/10/18 06:10 Eos # (Auto) Not Reportable 04/10/18 06:10 Baso # (Auto) Not Reportable 04/10/18 06:10 Absolute Nucleated RBC Not Reportable 04/10/18 06:10 Total Counted 100 04/10/18 06:10 Band Neuts % (Manual) 12 % (0-10) H 04/10/18 06:10 Abnorm Lymph % (Manual) 0 % 04/10/18 06:10 Nucleated RBC % Not Reportable 04/10/18 06:10 Neutrophils # (Manual) 18.2 10^3/uL (1.5-6.6) H 04/10/18 06:10 Lymphocytes # (Manual) 3.4 10^3/uL (1.5-3.5) 04/10/18 06:10 Monocytes # (Manual) 1.5 10^3/uL (0.0-1.0) H 04/10/18 06:10 Eosinophils # (Manual) 1.2 10^3/uL (0-0.7) H 04/10/18 06:10 Basophils # (Manual) 0.0 10^3/uL (0-0.1) 04/10/18 06:10 Differential Comment MANUAL DIFFERENTIAL 04/10/18 06:10 Manual Slide Review Indicated 04/09/18 18:31 WBC Morphology NORMAL APPEARANCE (NORMAL) 04/09/18 18:31 Platelet Estimate INCREASED (>450,000) (NORMAL) 04/09/18 18:31 Platelet Morphology 2+ GIANT PLATELETS (NORMAL) 04/10/18 06:10 RBC Morph Micro Appear 2+ MACROCYTOSIS (NORMAL) 2+ ANISOCYTOSIS (NORMAL) 04/09/18 18:31 RBC Morph Micro Appear 2+ ANISOCYTOSIS (NORMAL) 1+ OVALOCYTES (NORMAL) 1+ TEARDROP CELLS (NORMAL) 04/10/18 06:10 RBC Morph Micro Appear 2+ ANISOCYTOSIS (NORMAL) 1+ OVALOCYTES (NORMAL) 1+ TEARDROP CELLS (NORMAL) 04/10/18 06:10 RBC Morph Micro Appear 2+ ANISOCYTOSIS (NORMAL) 1+ OVALOCYTES (NORMAL) 1+ TEARDROP CELLS (NORMAL) 04/10/18 06:10 PT 19.3 secs (9.9-12.6) H 04/09/18 18:31 INR 1.7 (0.8-1.2) H 04/09/18 18:31 Sodium 133 mmol/L (135-145) L 04/10/18 06:10 Potassium 4.6 mmol/L (3.5-5.0) 04/10/18 06:10 Chloride 100 mmol/L (101-111) L 04/10/18 06:10 Carbon Dioxide 25 mmol/L (21-32) 04/10/18 06:10 Anion Gap 8.0 (6-13) 04/10/18 06:10 BUN 26 mg/dL (6-20) H 04/10/18 06:10 Creatinine 1.0 mg/dL (0.6-1.2) 04/10/18 06:10 Estimated GFR (MDRD) 73 (>89) L 04/10/18 06:10 Glucose 123 mg/dL (70-100) H 04/10/18 06:10 Calcium 8.5 mg/dL (8.5-10.3) 04/10/18 06:10 Total Bilirubin 1.5 mg/dL (0.2-1.0) H 04/09/18 18:31 AST 17 IU/L (10-42) 04/09/18 18:31 ALT 18 IU/L (10-60) 04/09/18 18:31 Alkaline Phosphatase 118 IU/L (42-121) 04/09/18 18:31 Troponin I 0.04 ng/mL (<0.49) 04/09/18 18:08 B-Natriuretic Peptide 202 pg/mL (5-100) H 04/09/18 18:31 Total Protein 7.3 g/dL (6.7-8.2) 04/09/18 18:31 Albumin 3.2 g/dL (3.2-5.5) 04/09/18 18:31 Globulin 4.1 g/dL (2.1-4.2) 04/09/18 18:31 Albumin/Globulin Ratio 0.8 (1.0-2.2) L 04/09/18 18:31 Lipase 19 U/L (22-51) L 04/09/18 18:31 - Procedures Procedures: Procedures INSPECTION OF LOWER INTESTINAL TRACT, ENDO (08/01/16)
[2018-04-10] MEDS: LIDOCAINE OINTMENT 5% 35.44 GM TUBE TOP SCH ×3 (13:38→21:24)
[2018-04-10] MEDS: IPRATROPIUM/ALBUTEROL 3 ML NEB INH PRN (16:48)
[2018-04-10] MEDS: ACETAMINOPHEN 1,000 MG/100 ML 100 ML IV PRN (17:31)
[2018-04-10] MEDS ORDERED: SODIUM CHLORIDE 0.9% 500 ML IV ONE (18:50)
[2018-04-10] MEDS: DEXTROSE 5%-0.9% NACL 1,000 ML IV SCH (20:12)
[2018-04-10] MEDS: IPRATROPIUM/ALBUTEROL 3 ML NEB INH SCH (21:01)
[2018-04-11] MEDS: SODIUM CHLORIDE FLUSH 0.9% 10 ML SYRINGE IVP SCH ×3 (00:26→16:05)
[2018-04-11] MEDS: MAGNESIUM OXIDE 400 MG TABLET PO PRN ×3 (00:37→21:11)
[2018-04-11] MEDS: ACETAMINOPHEN 1,000 MG/100 ML 100 ML IV PRN ×4 (00:38→22:33)
[2018-04-11] MEDS ORDERED: PRAMIPEXOLE 0.25 MG TABLET PO SCH ×2 (01:00→21:00)
[2018-04-11 06:30] LABS: BASOPHILS # (AUTO) 0.2 10^3/uL (0.0-0.1); BASOPHILS % (AUTO) 0.8 %; EOSINOPHILS # (AUTO) 0.2 10^3/uL (0.0-0.7); EOSINOPHILS % (AUTO) 1.1 %; LYMPHOCYTES # (AUTO) 1.2 10^3/uL (1.5-3.5); LYMPHOCYTES % (AUTO) 5.2 %; MEAN CORPUSCULAR HEMOGLOBIN 42.5 pg (27.0-31.0); MEAN CORPUSCULAR HGB CONC 35.5 g/dL (32.0-36.0); MEAN CORPUSCULAR VOLUME 119.6 fL (80.0-94.0); MEAN PLATELET VOLUME 9.1 fL (7.4-11.4); MONOCYTES # (AUTO) 1.9 10^3/uL (0.0-1.0); MONOCYTES % (AUTO) 8.3 %; NEUTROPHILS # (AUTO) 19.5 10^3/uL (1.5-6.6); NEUTROPHILS % (AUTO) 84.6 %; RED BLOOD COUNT 3.05 10^6/uL (4.70-6.10); RED CELL DISTRIBUTION WIDTH 21.2 % (12.0-15.0); WHITE BLOOD COUNT 23.1 x10^3/uL (4.8-10.8)
[2018-04-11 06:33] LABS: PLT - PLATELET COUNT 848 10^3/uL (130-450)
[2018-04-11 06:36] LABS: CALCIUM 8.1 mg/dL (8.5-10.3); CREATININE 0.9 mg/dL (0.6-1.2)
[2018-04-11 07:10] LABS: PLATELET MORPHOLOGY RARE GIANT PLATELETS (NORMAL)
[2018-04-11 07:11] LABS: PLATELET ESTIMATE, MANUAL INCREASED (>450,000) (NORMAL)
[2018-04-11] MEDS: IPRATROPIUM/ALBUTEROL 3 ML NEB INH SCH ×4 (07:46→19:27)
[2018-04-11] MEDS: DEXTROSE 5%-0.9% NACL 1,000 ML IV SCH ×2 (07:59→21:11)
[2018-04-11] MEDS: LACTOBACILLUS RHAMNOSUS GG CAPSULE PO SCH (08:04)
[2018-04-11] MEDS: MULTIVITAMIN TABLET PO SCH (08:04)
[2018-04-11] MEDS: POLYETHYLENE GLYCOL 3350 17 GM PACKET PO SCH (08:06)
[2018-04-11] MEDS: ASPIRIN CHEW 81 MG TABLET PO SCH (08:13)
[2018-04-11] MEDS: LIDOCAINE OINTMENT 5% 35.44 GM TUBE TOP SCH ×4 (08:16→21:22)
[2018-04-11] MEDS: cefTRIAXone 2 GM in SODIUM CHLORIDE 0.9% MINIBAG 100 ML IV SCH (08:19)
--- NOTE | 2018-04-11 08:54 | PROVIDER PROGRESS NOTE ---
Subjective - Prog Note Date Prog Note Date: 04/11/18 Prog Note Time: 08:52 - Subjective Pt reports feeling: Improved (Comfortable on room air) Objective - Vital Signs/Intake & Output Vital Signs: Vital Signs x48h Temp Pulse Pulse Resp BP Pulse Ox 04/11/18 08:00 36.8 C 88 26 H 126/71 95 04/11/18 07:52 92 22 Intake & Output: Intake & Output 04/08/18 04/09/18 04/10/18 04/11/18 23:59 23:59 23:59 23:59 Intake Total 1650.0 1181.941 Output Total 3950 Balance -2300.0 1181.941 - Objective General Appearance: positive: No acute distress Eyes Bilateral: positive: Normal inspection Respiratory: positive: Chest non-tender Cardiovascular: positive: Regular rate & rhythm Abdomen: positive: Non-tender Skin: positive: Skin rash Extremities: positive: Non-tender Neurologic/Psychiatric: positive: Oriented x3 - Lab Results Fish Bones: 04/11/18 06:12 04/11/18 06:12 Other Labs: Lab Results x24hrs 04/11/18 04/11/18 Range/Units 06:12 06:12 WBC 23.1 H (4.8-10.8) x10^3/uL RBC 3.05 L (4.70-6.10) 10^6/uL Hgb 13.0 L (14.0-18.0) g/dL Hct 36.5 L (42.0-52.0) % MCV 119.6 H (80.0-94.0) fL MCH 42.5 H (27.0-31.0) pg MCHC 35.5 (32.0-36.0) g/dL RDW 21.2 H (12.0-15.0) % Plt Count 848 H* (130-450) 10^3/uL MPV 9.1 (7.4-11.4) fL Neut # (Auto) 19.5 H (1.5-6.6) 10^3/uL Lymph # (Auto) 1.2 L (1.5-3.5) 10^3/uL [place] # (Auto) 1.9 H (0.0-1.0) 10^3/uL Eos # (Auto) 0.2 (0.0-0.7) 10^3/uL Baso # (Auto) 0.2 H (0.0-0.1) 10^3/uL Absolute Nucleated RBC 0.01 x10^3/uL Nucleated RBC % 0.0 /100WBC Manual Slide Review Indicated Platelet Estimate INCREASED (>450,000) (NORMAL) Platelet Morphology RARE GIANT PLATELETS (NORMAL) Sodium 131 L (135-145) mmol/L Potassium 4.2 (3.5-5.0) mmol/L Chloride 101 (101-111) mmol/L Carbon Dioxide 22 (21-32) mmol/L Anion Gap 8.0 (6-13) BUN 21 H (6-20) mg/dL Creatinine 0.9 (0.6-1.2) mg/dL Estimated GFR (MDRD) 82 L (>89) Glucose 137 H (70-100) mg/dL Calcium 8.1 L (8.5-10.3) mg/dL Assessment/Plan - Problem List (2) Pleural effusion Impression: His chest tube has stopped putting out fluid, so the tube can be removed if it is a simple effusion. I would recommend waiting for the fluid analysis if something more complicated is suspected, however.
[2018-04-11] MEDS: AZITHROMYCIN INJ 500 MG in SODIUM CHLORIDE 0.9% 250 ML IV SCH (09:14)
[2018-04-11] MEDS: IBUPROFEN 800 MG TABLET PO PRN (12:21)
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
[2018-04-11] MEDS: MAGIC MOUTHWASH 120 ML BOTTLE PO PRN ×2 (13:18→22:33)
[2018-04-11] MEDS: guaiFENesin 600 MG TABLET PO SCH ×2 (16:12→21:11)
[2018-04-11] MEDS: PRAMIPEXOLE 0.25 MG TABLET PO SCH (21:11)
[2018-04-12] MEDS: SODIUM CHLORIDE FLUSH 0.9% 10 ML SYRINGE IVP SCH ×3 (00:29→20:33)
[2018-04-12] MEDS: oxyCODONE 5 MG TABLET PO PRN (02:03)
[2018-04-12] MEDS: IPRATROPIUM/ALBUTEROL 3 ML NEB INH PRN ×2 (04:58→20:04)
[2018-04-12] MEDS: IBUPROFEN 800 MG TABLET PO PRN ×3 (05:30→21:21)
[2018-04-12] MEDS: BENZOCAINE/MENTHOL LOZENGE MM PRN (05:30)
[2018-04-12 06:52] LABS: BASOPHILS # (AUTO) 0.1 10^3/uL (0.0-0.1); BASOPHILS % (AUTO) 0.7 %; CALCIUM 8.2 mg/dL (8.5-10.3); CREATININE 0.8 mg/dL (0.6-1.2); EOSINOPHILS # (AUTO) 0.3 10^3/uL (0.0-0.7); EOSINOPHILS % (AUTO) 1.8 %; HGB - HEMOGLOBIN 12.6 g/dL (14.0-18.0); LYMPHOCYTES # (AUTO) 0.9 10^3/uL (1.5-3.5); LYMPHOCYTES % (AUTO) 4.6 %; MEAN CORPUSCULAR HEMOGLOBIN 39.9 pg (27.0-31.0); MEAN CORPUSCULAR HGB CONC 32.5 g/dL (32.0-36.0); MEAN CORPUSCULAR VOLUME 122.8 fL (80.0-94.0); MONOCYTES # (AUTO) 1.5 10^3/uL (0.0-1.0); MONOCYTES % (AUTO) 7.9 %; NEUTROPHILS # (AUTO) 15.8 10^3/uL (1.5-6.6); RED BLOOD COUNT 3.17 10^6/uL (4.70-6.10); RED CELL DISTRIBUTION WIDTH 21.6 % (12.0-15.0); WHITE BLOOD COUNT 18.6 x10^3/uL (4.8-10.8)
[2018-04-12 06:56] LABS: PLT - PLATELET COUNT 879 10^3/uL (130-450)
[2018-04-12 07:52] LABS: PLATELET ESTIMATE, MANUAL INCREASED (>450,000) (NORMAL); PLATELET MORPHOLOGY RARE GIANT PLATELETS (NORMAL)
[2018-04-12] MEDS: MULTIVITAMIN TABLET PO SCH (08:21)
[2018-04-12] MEDS: cefTRIAXone 2 GM in SODIUM CHLORIDE 0.9% MINIBAG 100 ML IV SCH (08:21)
[2018-04-12] MEDS: LIDOCAINE OINTMENT 5% 35.44 GM TUBE TOP SCH ×4 (08:22→21:38)
[2018-04-12] MEDS: LACTOBACILLUS RHAMNOSUS GG CAPSULE PO SCH (08:22)
[2018-04-12] MEDS: guaiFENesin 600 MG TABLET PO SCH (08:22)
[2018-04-12] MEDS: ASPIRIN CHEW 81 MG TABLET PO SCH (08:22)
[2018-04-12] MEDS: AZITHROMYCIN INJ 500 MG in SODIUM CHLORIDE 0.9% 250 ML IV SCH (09:20)
[2018-04-12] MEDS: DEXTROSE 5%-0.9% NACL 1,000 ML IV SCH ×2 (09:21→22:21)
[2018-04-12] MEDS: IPRATROPIUM/ALBUTEROL 3 ML NEB INH SCH ×3 (09:21→14:31)
--- NOTE | 2018-04-12 10:05 | PROVIDER PROGRESS NOTE ---
Subjective - Prog Note Date Prog Note Date: 04/12/18 Prog Note Time: 10:04 - Subjective Pt reports feeling: Improved (SOB resolved) Objective - Vital Signs/Intake & Output Vital Signs: Vital Signs x48h Temp Pulse Pulse Resp BP Pulse Ox 04/12/18 09:23 74 20 04/12/18 07:01 36.3 C L 91 22 126/71 94 04/12/18 05:18 82 14 Intake & Output: Intake & Output 04/09/18 04/10/18 04/11/18 04/12/18 23:59 23:59 23:59 23:59 Intake Total 1650.0 3382.829 989.441 Output Total 3950 1275 500 Balance -2300.0 2107.829 489.441 - Objective General Appearance: positive: No acute distress Eyes Bilateral: positive: Normal inspection ENT: positive: ENT inspection nml Neck: positive: Nml inspection Respiratory: positive: Chest non-tender Cardiovascular: positive: Regular rate & rhythm Abdomen: positive: Non-tender Back: positive: Nml inspection Skin: positive: Skin rash Extremities: positive: Non-tender Neurologic/Psychiatric: positive: Oriented x3 - Lab Results Fish Bones: 04/12/18 06:30 04/12/18 06:30 Other Labs: Lab Results x24hrs 04/12/18 04/12/18 Range/Units 06:30 06:30 WBC 18.6 H (4.8-10.8) x10^3/uL RBC 3.17 L (4.70-6.10) 10^6/uL Hgb 12.6 L (14.0-18.0) g/dL Hct 38.9 L (42.0-52.0) % MCV 122.8 H (80.0-94.0) fL MCH 39.9 H (27.0-31.0) pg MCHC 32.5 (32.0-36.0) g/dL RDW 21.6 H (12.0-15.0) % Plt Count 879 H* (130-450) 10^3/uL MPV 9.0 (7.4-11.4) fL Neut # (Auto) 15.8 H (1.5-6.6) 10^3/uL Lymph # (Auto) 0.9 L (1.5-3.5) 10^3/uL [place] # (Auto) 1.5 H (0.0-1.0) 10^3/uL Eos # (Auto) 0.3 (0.0-0.7) 10^3/uL Baso # (Auto) 0.1 (0.0-0.1) 10^3/uL Absolute Nucleated RBC 0.01 x10^3/uL Nucleated RBC % 0.1 /100WBC Manual Slide Review Indicated Platelet Estimate INCREASED (>450,000) (NORMAL) Platelet Morphology RARE GIANT PLATELETS (NORMAL) Sodium 137 (135-145) mmol/L Potassium 4.3 (3.5-5.0) mmol/L Chloride 106 (101-111) mmol/L Carbon Dioxide 26 (21-32) mmol/L Anion Gap 5.0 L (6-13) BUN 16 (6-20) mg/dL Creatinine 0.8 (0.6-1.2) mg/dL Estimated GFR (MDRD) 94 (>89) Glucose 134 H (70-100) mg/dL Calcium 8.2 L (8.5-10.3) mg/dL Assessment/Plan - Problem List (2) Pleural effusion Impression: Output remains stable. CT removed at bedside without event. Will follow CXR.
[2018-04-12] MEDS: ACETAMINOPHEN 325 MG TABLET PO PRN (10:07)
[2018-04-12] MEDS: POLYETHYLENE GLYCOL 3350 17 GM PACKET PO SCH (10:43)
--- NOTE | 2018-04-12 11:31 | XRAY Report ---
Reason: Assess pleural effusion and chest tube Procedure Date: 04/12/2018 Accession Number: [id number] / [id number] Procedure: XR - Chest 1 View X-Ray CPT Code: 85822 FULL RESULT: EXAM: CHEST RADIOGRAPHY EXAM DATE: 04/12/2018 09:21 AM. CLINICAL HISTORY: Assess pleural effusion and chest tube. COMPARISON: CHEST 1 VIEW 04/09/2018 10:24 PM CHEST W/ 04/10/2018 8:11 AM. TECHNIQUE: 1 view. FINDINGS: Lungs/Pleura: Moderate left pleural effusion has somewhat increased compared to prior. Diffuse bilateral hazy and reticular opacities are similar to prior. No pneumothorax. Mediastinum: Moderate enlargement of the cardiac silhouette, similar to prior. Other: Left subclavian dual lead cardiac conduction device stable. Sternotomy wires as before. IMPRESSION: Moderate left pleural effusion has somewhat increased in size compared to prior. RADIA
--- NOTE | 2018-04-12 15:25 | XRAY Report ---
Reason: CT removal Procedure Date: 04/12/2018 Accession Number: [id number] / [id number] Procedure: XR - Chest 1 View X-Ray CPT Code: 94073 FULL RESULT: EXAM: CHEST RADIOGRAPHY EXAM DATE: 04/12/2018 12:03 PM. CLINICAL HISTORY: CT removal. COMPARISON: Earlier the same day at 9:08 AM. TECHNIQUE: 1 view. FINDINGS: Lungs/Pleura: Interval removal of the left chest tube. Moderate left pleural effusion is similar to prior. No definite right pleural effusion. No pneumothorax bilaterally. No focal consolidation on the right. Mediastinum: The cardiac silhouette is mostly obscured but there is no marked enlargement or definite change from prior. Other: Left subclavian dual lead cardiac conduction device stable. Sternotomy wires as before. IMPRESSION: Interval removal of the left chest tube. Otherwise no significant change from prior. [facility]IA
[2018-04-12] MEDS: ACETAMINOPHEN 1,000 MG/100 ML 100 ML IV PRN (16:10)
--- NOTE | 2018-04-12 18:24 | PROVIDER PROGRESS NOTE ---
Assessment/Plan - Problem List (1) CAP (community acquired pneumonia) Qualifiers: Laterality: left Assessment/Plan: Pt on iv Zithromax and Ceftriaxone day 4 Given that patient had a pleural effusion we will treat for a total of 14 days Patient does have persistent cough and today he has worsening shortness of breath. Patient's leukocytosis continues to improve as WBC is down from 31.8-18.6. The patient has been weaned down to room air. Blood cx negative Repeat chest x-ray this morning shows moderate left pleural effusion which has increased in size compared to prior. The patient's chest tube did not have any drainage the last 2 days therefore it was removed by surgery. The patient does not appear to be improving and pleural effusion appears to be getting worse. We will continue with IV antibiotics and get a thoracentesis in the morning. Patient will likely need transfer to a higher level of care with specialists such as pulmonology and cardio thoracic surgery. (2) Pleural effusion Assessment/Plan: Pt received a L sided chest tube on presentation and the surgeon is following along with us. Chest tube removed today as there was no drainage. Repeat chest x-ray showed moderate left pleural effusion which is somewhat increased in size compared to prior. Given that the patient has a persistent pleural effusion we will repeat a thoracentesis in the morning and send fluid for culture, Gram stain, LDH, protein, cell count and differential as well as for cytology. It appears that the patient's initial fluid sample was not sent for any of the above testing. Given the persistent pleural effusion patient will likely need transfer to a facility that has specialist in pulmonology and cardiothoracic surgery as despit e a chest tube the patient's effusion did not resolve and is now worsening. (3) Myeloproliferative disorder Assessment/Plan: This patient's Hydroxyurea was stopped 5 weeks ago. His plt count and WBC are very elevated. The admission note stated that the Oncologist had recommended to see if the WBC and plts decrease after treatment of the infection and if not then to transfer the patient. Patients WBC and plt count are improving with treatment of infection therefore no need for transfer at this point Patient to follow up with Dr Glass on Friday will hold hydroxyurea for now Restart daily ASA for antiplatelet effect. (4) Radiation dermatitis Assessment/Plan: Continue magic mouthwash and Lidocaine 5% ointment for symptoms of pain, since he uses a triple mouthwash and Aspercreme at home. Will order a soft diet as well. (5) BPH (benign prostatic hyperplasia) Qualifiers: Lower urinary tract symptom presence: symptoms absent Qualified Code(s): N40.0 - Benign prostatic hyperplasia without lower urinary tract symptoms Assessment/Plan: Continue home meds. (6) Skin cancer Assessment/Plan: Basal cell and Squamous cell CA, was getting radiation, causing the acute radiodermatitis (above). - Current Meds Current Meds: Current Medications Generic Name Dose Route Start Last Admin Trade Name Freq PRN Reason Stop Dose Admin Acetaminophen 650 mg 04/09/18 20:49 04/12/18 10:07 Tylenol PO 650 mg Q4HR PRN Administration Pain 1 to 4 Albuterol/Ipratropium 3 ml 04/10/18 16:23 04/12/18 04:58 Duoneb INH 3 ml Q4HR PRN Administration Wheezing Aspirin 81 mg 04/11/18 09:00 04/12/18 08:22 [facility] Aspirin PO 81 mg DAILY MARIFER Administration Azithromycin 500 mg/ Sodium 250 mls @ 250 mls/hr 04/10/18 09:00 04/12/18 10:20 Chloride IV Infused DAILY MARIFER Infusion Ceftriaxone Sodium 2 gm/ 100 mls @ 200 mls/hr 04/10/18 09:00 04/12/18 08:50 Sodium Chloride IV Infused DAILY MARIFER Infusion Acetaminophen 100 mls @ 400 mls/hr 04/10/18 16:21 04/12/18 16:25 Ofirmev IV Infused Q6HR PRN Infusion PAIN Dextrose/Sodium Chloride 1,000 mls @ 83.333 mls/hr 04/10/18 19:00 04/12/18 09:21 D5ns IV 83.333 mls/hr .Q12H MARIFER Administration Ibuprofen 800 mg 04/11/18 08:05 04/12/18 13:05 Motrin PO 800 mg BID PRN Administration PAIN Lactobacillus Rhamnosus 1 cap 04/10/18 08:00 04/12/18 08:22 Culturelle PO 1 cap DAILYWM MARIFER Administration Lidocaine 1 applic 04/10/18 14:00 04/12/18 12:59 Xylocaine Ointment 5% TOP 1 applic QID MARIFER Administration Magnesium Oxide 400 mg 04/10/18 23:11 04/11/18 21:11 Mag Ox PO 400 mg BID PRN Administration Cramp Multi-Ingredient Mouthwash/Gargle 30 ml 04/10/18 13:19 04/11/18 22:33 PO 30 ml Q4H PRN Administration Mouth Sore Pain Multivitamins 1 tab 04/11/18 08:00 04/12/18 08:21 Theragran PO 1 tab DAILYWM MARIFER Administration Oxycodone HCl 5 mg 04/09/18 20:49 04/12/18 02:03 Roxicodone PO 5 mg Q4HR PRN Administration Pain 5 to 7 Polyethylene Glycol 17 gm 04/10/18 09:00 04/12/18 10:43 Miralax PO Not Given DAILY MARIFER Pramipexole Dihydrochloride 0.25 mg 04/11/18 21:00 04/11/18 21:11 Mirapex PO 0.25 mg QPM MARIFER Administration Sodium Chloride 10 ml 04/09/18 20:49 04/10/18 17:54 Normal Saline Flush 0.9% IVP 10 ml PRN PRN Administration NEEDED PER PROVIDER ORDERS Sodium Chloride 10 ml 04/10/18 01:00 04/12/18 08:23 Normal Saline Flush 0.9% IVP Not Given 0100,0900,1700 MARIFER Throat Lozenges 1 lozenge 04/10/18 13:53 04/12/18 05:30 Cepacol MM 1 lozenge Q2HR PRN Administration Throat pain - Lab Result Lab results reviewed: Yes Fish Bone Diagrams: 04/12/18 06:30 04/12/18 06:30 - Diagnostic Imaging Results Diagnostic Imaging Results: Final report reviewed Diagnostic Imaging Results Comments: Chest x-ray Impression: Moderate left pleural effusion has somewhat increased in size compared to prior. - Additional Planning Condition/Complexity: Guarded My Orders: My Active Orders 04/12/18 CELL COUNT, BF [BF] Routine 04/12/18 09:57 guaiFENesin/CODEINE [Robitussin AC] 5 ml PO Q6HR PRN 04/12/18 16:26 MISC TEST QUEST REFRIG [REFLAB] Routine MISC TEST QUEST REFRIG [REFLAB] Routine 04/12/18 16:28 MISC TEST QUEST REFRIG [REFLAB] Routine 04/13/18 11:00 Thoracentesis Puncture [US] Routine CUL, ANAEROBIC (QUEST) [REFLAB] Routine CUL,BODY FLUID(AEROBIC) [RM] Routine Consult/Specialty: Surgery Plan Discussed with:: Patient, Spouse Time Spent: 31-60 minutes Subjective - Subjective Patient Reports: Cough (Worsening cough today), Chest Pain, Shortness of Breath (Continues to have shortness of breath with exertion and at rest.), Other (No fevers or chills) Nursing Reports: No Complaints Objective Vital Signs: Vital Signs - 24 hr 04/11/18 04/11/18 04/12/18 19:28 22:54 00:00 Temperature 36.7 C Heart Rate 71 Heart Rate [ 80 Brachial] Respiratory 18 22 Rate Blood Pressure 129/71 [Right Brachial artery] O2 Saturation 93 93 04/12/18 04/12/18 04/12/18 05:18 07:01 09:23 Temperature 36.3 C L Heart Rate 82 74 Heart Rate [ 91 Brachial] Respiratory 14 22 20 Rate Blood Pressure 126/71 [Right Brachial artery] O2 Saturation 94 04/12/18 04/12/18 14:35 16:00 Temperature 36.5 C Heart Rate 74 Heart Rate [ 82 Brachial] Respiratory 20 20 Rate Blood Pressure 117/65 [Right Brachial artery] O2 Saturation 93 Oxygen O2 Source Room air Oxygen Flow Rate 2 I&O (Last 24 Hrs): Intake and Output Totals x24h 04/10/18 04/11/18 04/12/18 23:59 23:59 23:59 Intake Total 1650.0 3382.829 1799.441 Output Total 3950 1275 500 Balance -2300.0 2107.829 1299.441 General: Alert, Oriented x3, Moderate distress (Tachypneic appears short of breath.) HEENT: Atraumatic, PERRLA, EOMI, Mucous membr. moist/pink, Other (Patient has skin changes under the left eye consistent with radiation gayle) Neck: Supple, No JVD, No thyromegaly, +2 carotid pulse wo bruit, No LAD Lymphatic: no adenopathy Neuro: Alert, Non Focal, CN 2-12 Grossly Intact, Oriented Times 3 Cardiovascular: Regular rate, Normal S1, Normal S2, No murmurs Respiratory: Rales (Left lung), Rhonchi (Left side) Abdomen: Normal bowel sounds, Soft, No tenderness, No hepatospenomegaly Extremities: No clubbing, No cyanosis, No edema, Normal pulses Skin: No rashes Comments/Notes: Gayle under left eye from radiation - Results Results: Laboratory Results WBC 18.6 x10^3/uL (4.8-10.8) H 04/12/18 06:30 RBC 3.17 10^6/uL (4.70-6.10) L 04/12/18 06:30 Hgb 12.6 g/dL (14.0-18.0) L 04/12/18 06:30 Hct 38.9 % (42.0-52.0) L 04/12/18 06:30 MCV 122.8 fL (80.0-94.0) H 04/12/18 06:30 MCH 39.9 pg (27.0-31.0) H 04/12/18 06:30 MCHC 32.5 g/dL (32.0-36.0) 04/12/18 06:30 RDW 21.6 % (12.0-15.0) H 04/12/18 06:30 Plt Count 879 10^3/uL (130-450) H* 04/12/18 06:30 MPV 9.0 fL (7.4-11.4) 04/12/18 06:30 Neut # (Auto) 15.8 10^3/uL (1.5-6.6) H 04/12/18 06:30 Lymph # (Auto) 0.9 10^3/uL (1.5-3.5) L 04/12/18 06:30 [place] # (Auto) 1.5 10^3/uL (0.0-1.0) H 04/12/18 06:30 Eos # (Auto) 0.3 10^3/uL (0.0-0.7) 04/12/18 06:30 Baso # (Auto) 0.1 10^3/uL (0.0-0.1) 04/12/18 06:30 Absolute Nucleated RBC 0.01 x10^3/uL 04/12/18 06:30 Total Counted 100 04/10/18 06:10 Band Neuts % (Manual) 12 % (0-10) H 04/10/18 06:10 Abnorm Lymph % (Manual) 0 % 04/10/18 06:10 Nucleated RBC % 0.1 /100WBC 04/12/18 06:30 Neutrophils # (Manual) 18.2 10^3/uL (1.5-6.6) H 04/10/18 06:10 Lymphocytes # (Manual) 3.4 10^3/uL (1.5-3.5) 04/10/18 06:10 Monocytes # (Manual) 1.5 10^3/uL (0.0-1.0) H 04/10/18 06:10 Eosinophils # (Manual) 1.2 10^3/uL (0-0.7) H 04/10/18 06:10 Basophils # (Manual) 0.0 10^3/uL (0-0.1) 04/10/18 06:10 Differential Comment MANUAL DIFFERENTIAL 04/10/18 06:10 Manual Slide Review Indicated 04/12/18 06:30 WBC Morphology NORMAL APPEARANCE (NORMAL) 04/09/18 18:31 Platelet Estimate INCREASED (>450,000) (NORMAL) 04/12/18 06:30 Platelet Morphology RARE GIANT PLATELETS (NORMAL) 04/12/18 06:30 RBC Morph Micro Appear 2+ MACROCYTOSIS (NORMAL) 2+ ANISOCYTOSIS (NORMAL) 04/09/18 18:31 RBC Morph Micro Appear 2+ ANISOCYTOSIS (NORMAL) 1+ OVALOCYTES (NORMAL) 1+ TEARDROP CELLS (NORMAL) 04/10/18 06:10 RBC Morph Micro Appear 2+ ANISOCYTOSIS (NORMAL) 1+ OVALOCYTES (NORMAL) 1+ TEARDROP CELLS (NORMAL) 04/10/18 06:10 RBC Morph Micro Appear 2+ ANISOCYTOSIS (NORMAL) 1+ OVALOCYTES (NORMAL) 1+ TEARDROP CELLS (NORMAL) 04/10/18 06:10 PT 19.3 secs (9.9-12.6) H 04/09/18 18:31 INR 1.7 (0.8-1.2) H 04/09/18 18:31 Sodium 137 mmol/L (135-145) 04/12/18 06:30 Potassium 4.3 mmol/L (3.5-5.0) 04/12/18 06:30 Chloride 106 mmol/L (101-111) 04/12/18 06:30 Carbon Dioxide 26 mmol/L (21-32) 04/12/18 06:30 Anion Gap 5.0 (6-13) L 04/12/18 06:30 BUN 16 mg/dL (6-20) 04/12/18 06:30 Creatinine 0.8 mg/dL (0.6-1.2) 04/12/18 06:30 Estimated GFR (MDRD) 94 (>89) 04/12/18 06:30 Glucose 134 mg/dL (70-100) H 04/12/18 06:30 Calcium 8.2 mg/dL (8.5-10.3) L 04/12/18 06:30 Total Bilirubin 1.5 mg/dL (0.2-1.0) H 04/09/18 18:31 AST 17 IU/L (10-42) 04/09/18 18:31 ALT 18 IU/L (10-60) 04/09/18 18:31 Alkaline Phosphatase 118 IU/L (42-121) 04/09/18 18:31 Troponin I 0.04 ng/mL (<0.49) 04/09/18 18:08 B-Natriuretic Peptide 202 pg/mL (5-100) H 04/09/18 18:31 Total Protein 7.3 g/dL (6.7-8.2) 04/09/18 18:31 Albumin 3.2 g/dL (3.2-5.5) 04/09/18 18:31 Globulin 4.1 g/dL (2.1-4.2) 04/09/18 18:31 Albumin/Globulin Ratio 0.8 (1.0-2.2) L 04/09/18 18:31 Lipase 19 U/L (22-51) L 04/09/18 18:31 - Procedures Procedures: Procedures INSPECTION OF LOWER INTESTINAL TRACT, ENDO (08/01/16) ABX Reporting Has patient been on IV antibiotics over the past 48 hours?: Yes Current Medications - Current Medications Current Medications: Active Medications Generic Name Dose Route Start Last Admin Trade Name Freq PRN Reason Stop Dose Admin Acetaminophen 650 mg 04/09/18 20:49 04/12/18 10:07 Tylenol PO 650 mg Q4HR PRN Administration Pain 1 to 4 Albuterol/Ipratropium 3 ml 04/10/18 16:23 04/12/18 04:58 Duoneb INH 3 ml Q4HR PRN Administration Wheezing Aspirin 81 mg 04/11/18 09:00 04/12/18 08:22 [facility] Aspirin PO 81 mg DAILY MARIFER Administration Guaifenesin/Codeine Phosphate 5 ml 04/12/18 09:57 Robitussin Ac PO Q6HR PRN Cough Azithromycin 500 mg/ Sodium 250 mls @ 250 mls/hr 04/10/18 09:00 04/12/18 10:20 Chloride IV Infused DAILY MARIFER Infusion Ceftriaxone Sodium 2 gm/ 100 mls @ 200 mls/hr 04/10/18 09:00 04/12/18 08:50 Sodium Chloride IV Infused DAILY MARIFER Infusion Acetaminophen 100 mls @ 400 mls/hr 04/10/18 16:21 04/12/18 16:25 Ofirmev IV Infused Q6HR PRN Infusion PAIN Dextrose/Sodium Chloride 1,000 mls @ 83.333 mls/hr 04/10/18 19:00 04/12/18 09:21 D5ns IV 83.333 mls/hr .Q12H MARIFER Administration Ibuprofen 800 mg 04/11/18 08:05 04/12/18 13:05 Motrin PO 800 mg BID PRN Administration PAIN Lactobacillus Rhamnosus 1 cap 04/10/18 08:00 04/12/18 08:22 Culturelle PO 1 cap DAILYWM MARIFER Administration Lidocaine 1 applic 04/10/18 14:00 04/12/18 12:59 Xylocaine Ointment 5% TOP 1 applic QID MARIFER Administration Magnesium Oxide 400 mg 04/10/18 23:11 04/11/18 21:11 Mag Ox PO 400 mg BID PRN Administration Cramp Multi-Ingredient Mouthwash/Gargle 30 ml 04/10/18 13:19 04/11/18 22:33 PO 30 ml Q4H PRN Administration Mouth Sore Pain Multivitamins 1 tab 04/11/18 08:00 04/12/18 08:21 Theragran PO 1 tab DAILYWM MARIFER Administration Ondansetron HCl 4 mg 04/09/18 20:49 Zofran Inj IVP Q6HR PRN Nausea / Vomiting Oxycodone HCl 5 mg 04/09/18 20:49 04/12/18 02:03 Roxicodone PO 5 mg Q4HR PRN Administration Pain 5 to 7 Polyethylene Glycol 17 gm 04/10/18 09:00 04/12/18 10:43 Miralax PO Not Given DAILY MARIFER Pramipexole Dihydrochloride 0.25 mg 04/11/18 21:00 04/11/18 21:11 Mirapex PO 0.25 mg QPM MARIFER Administration Sodium Chloride 10 ml 04/09/18 20:49 04/10/18 17:54 Normal Saline Flush 0.9% IVP 10 ml PRN PRN Administration NEEDED PER PROVIDER ORDERS Sodium Chloride 10 ml 04/10/18 01:00 04/12/18 08:23 Normal Saline Flush 0.9% IVP Not Given 0100,0900,1700 MARIFER Throat Lozenges 1 lozenge 04/10/18 13:53 04/12/18 05:30 Cepacol MM 1 lozenge Q2HR PRN Administration Throat pain Aspirin Chewable [[facility] Aspirin] 81 mg PO DAILY 10/20/12 Lactobacillus Acidophilus [Acidophilus] 1 each PO DAILY 10/20/12 Nitroglycerin [Nitrostat] 0.4 mg SL Q5MIN PRN 02/16/13 traMADol [Ultram] 50 mg PO TID PRN 04/09/18 Multivitamin [Theragran] 1 each PO DAILY 04/10/18
[2018-04-12] MEDS: MAGNESIUM OXIDE 400 MG TABLET PO PRN (21:20)
[2018-04-12] MEDS: PRAMIPEXOLE 0.25 MG TABLET PO SCH (21:21)
[2018-04-12] MEDS: MAGIC MOUTHWASH 120 ML BOTTLE PO PRN (21:21)
[2018-04-13] MEDS: LIDOCAINE OINTMENT 5% 35.44 GM TUBE TOP SCH ×4 (06:26→21:19)
[2018-04-13] MEDS: SODIUM CHLORIDE FLUSH 0.9% 10 ML SYRINGE IVP SCH ×3 (06:26→18:02)
[2018-04-13] MEDS: ACETAMINOPHEN 1,000 MG/100 ML 100 ML IV PRN ×2 (06:33→18:02)
[2018-04-13] MEDS: LACTOBACILLUS RHAMNOSUS GG CAPSULE PO SCH (08:05)
[2018-04-13] MEDS: MULTIVITAMIN TABLET PO SCH (08:10)
[2018-04-13 08:33] LABS: BASOPHILS # (AUTO) 0.3 10^3/uL (0.0-0.1); BASOPHILS % (AUTO) 1.3 %; EOSINOPHILS # (AUTO) 0.6 10^3/uL (0.0-0.7); EOSINOPHILS % (AUTO) 2.7 %; HGB - HEMOGLOBIN 12.8 g/dL (14.0-18.0); LYMPHOCYTES % (AUTO) 4.6 %; MEAN CORPUSCULAR HEMOGLOBIN 39.5 pg (27.0-31.0); MEAN CORPUSCULAR HGB CONC 33.6 g/dL (32.0-36.0); MEAN CORPUSCULAR VOLUME 117.6 fL (80.0-94.0); MEAN PLATELET VOLUME 9.1 fL (7.4-11.4); MONOCYTES # (AUTO) 1.7 10^3/uL (0.0-1.0); MONOCYTES % (AUTO) 7.4 %; RED BLOOD COUNT 3.25 10^6/uL (4.70-6.10); RED CELL DISTRIBUTION WIDTH 21.8 % (12.0-15.0); WHITE BLOOD COUNT 22.6 x10^3/uL (4.8-10.8)
[2018-04-13 08:37] LABS: INR 1.7 (0.8-1.2); PT - PROTHROMBIN TIME 19.3 secs (9.9-12.6)
[2018-04-13 08:43] LABS: PLT - PLATELET COUNT 1025 10^3/uL (130-450)
[2018-04-13 08:45] LABS: ALBUMIN 2.8 g/dL (3.2-5.5); ALBUMIN/GLOBULIN RATIO 0.7 (1.0-2.2); ALKALINE PHOSPHATASE 298 IU/L (42-121); ALT ALANINE AMINOTRANSFERASE 40 IU/L (10-60); AST ASPARTATE AMINOTRANSFERASE 33 IU/L (10-42); BILIRUBIN,TOTAL 1.4 mg/dL (0.2-1.0); BUN - BLOOD UREA NITROGEN 16 mg/dL (6-20); CALCIUM 8.1 mg/dL (8.5-10.3); CARBON DIOXIDE - CO2 22 mmol/L (21-32); CHLORIDE 107 mmol/L (101-111); CREATININE 0.6 mg/dL (0.6-1.2); GFR - MDRD 131 (>89); GLUCOSE 106 mg/dL (70-100); MAGNESIUM 2.6 mg/dL (1.7-2.8); PHOSPHORUS 3.4 mg/dL (2.5-4.6); SODIUM 136 mmol/L (135-145); TOTAL PROTEIN 6.9 g/dL (6.7-8.2)
[2018-04-13 08:57] LABS: VBG PH 7.431 (7.31-7.41)
[2018-04-13] MEDS: ASPIRIN CHEW 81 MG TABLET PO SCH (09:11)
[2018-04-13] MEDS: cefTRIAXone 2 GM in SODIUM CHLORIDE 0.9% MINIBAG 100 ML IV SCH (09:12)
[2018-04-13 09:18] LABS: PLATELET ESTIMATE, MANUAL INCREASED (>450,000) (NORMAL); PLATELET MORPHOLOGY 1+ GIANT PLATELETS (NORMAL)
[2018-04-13 09:19] LABS: DIFFERENTIAL COMMENT MANUAL=AUTO DIFF
[2018-04-13] MEDS: POLYETHYLENE GLYCOL 3350 17 GM PACKET PO SCH (10:14)
[2018-04-13] MEDS: AZITHROMYCIN INJ 500 MG in SODIUM CHLORIDE 0.9% 250 ML IV SCH (10:17)
[2018-04-13] MEDS: IBUPROFEN 800 MG TABLET PO PRN (11:26)
[2018-04-13] MEDS: guaiFENesin/CODEINE 5 ML UDC PO PRN ×2 (11:29→18:03)
[2018-04-13] MEDS: DEXTROSE 5%-0.9% NACL 1,000 ML IV SCH (13:43)
[2018-04-13] MEDS: IPRATROPIUM/ALBUTEROL 3 ML NEB INH PRN (18:26)
--- NOTE | 2018-04-13 18:47 | PROVIDER PROGRESS NOTE ---
Assessment/Plan - Problem List (1) CAP (community acquired pneumonia) Qualifiers: Laterality: left Assessment/Plan: Pt on iv Zithromax and Ceftriaxone day 5 Given that patient had a pleural effusion we will treat for a total of 14 days Patients SOB is better today but he had severe coughing spells at night and says he had a terrible night Patient's leukocytosis worsened from 18.6 to 22.6 this am The patient has been weaned down to room air. Blood cx negative Patient was set for thoracentesis this am but ultrasound of the lungs showed only a small amount of fluid in the lung and not enough to do a thoracentesis Given that there was minimal fluid patient was not transferred today as there would be no benefit to transfer if patient does not have significant amount of p leural fluid accumulation We will continue IV abx and repeat CXR again tomorrow (2) Pleural effusion Assessment/Plan: Pt received a L sided chest tube on presentation and the surgeon is following along with us. Chest tube removed yesterday as there was no drainage. Repeat chest x-ray showed moderate left pleural effusion which is somewhat increased in size compared to prior. Patient was set for thoracentesis this am but ultrasound of the lungs showed only a small amount of fluid in the lung and not enough to do a thoracentesis Given that there was minimal fluid patient was not transferred today as there would be no benefit to transfer if patient does not have significant amount of pleural fluid accumulation We will continue IV abx and repeat CXR again tomorrow (3) Myeloproliferative disorder Assessment/Plan: This patient's Hydroxyurea was stopped 5 weeks ago. His plt count and WBC are very elevated. The admission note stated that the Oncologist had recommended to see if the WBC and plts decrease after treatment of the infection and if not then to transfer the patient. Patients WBC and plt count were improving with treatment of infection but today they are trending up Patient to follow up with Dr Glass on tomorrow will hold hydroxyurea for now Restarted daily ASA for antiplatelet effect. (4) Radiation dermatitis Assessment/Plan: Continue magic mouthwash and Lidocaine 5% ointment for symptoms of pain, since he uses a triple mouthwash and Aspercreme at home. Will order a soft diet as well. (5) BPH (benign prostatic hyperplasia) Qualifiers: Lower urinary tract symptom presence: symptoms absent Qualified Code(s): N40.0 - Benign prostatic hyperplasia without lower urinary tract symptoms Assessment/Plan: Continue home meds. (6) Skin cancer Assessment/Plan: Basal cell and Squamous cell CA, was getting radiation, causing the acute radiodermatitis (above). - Current Meds Current Meds: Current Medications Generic Name Dose Route Start Last Admin Trade Name Freq PRN Reason Stop Dose Admin Acetaminophen 650 mg 04/09/18 20:49 04/12/18 10:07 Tylenol PO 650 mg Q4HR PRN Administration Pain 1 to 4 Albuterol/Ipratropium 3 ml 04/10/18 16:23 04/13/18 18:26 Duoneb INH 3 ml Q4HR PRN Administration Wheezing Aspirin 81 mg 04/11/18 09:00 04/13/18 09:11 [facility] [place] Aspirin PO 81 mg DAILY MARIFER Administration Guaifenesin/Codeine Phosphate 5 ml 04/12/18 09:57 04/13/18 18:03 Robitussin Ac PO 5 ml Q6HR PRN Administration Cough Azithromycin 500 mg/ Sodium 250 mls @ 250 mls/hr 04/10/18 09:00 04/13/18 11:31 Chloride IV Infused DAILY MARIFER Infusion Ceftriaxone Sodium 2 gm/ 100 mls @ 200 mls/hr 04/10/18 09:00 04/13/18 10:14 Sodium Chloride IV Infused DAILY MARIFER Infusion Acetaminophen 100 mls @ 400 mls/hr 04/10/18 16:21 04/13/18 18:02 Ofirmev IV 400 mls/hr Q6HR PRN Administration PAIN Dextrose/Sodium Chloride 1,000 mls @ 83.333 mls/hr 04/10/18 19:00 04/13/18 13:43 D5ns IV 83.33 mls/hr .Q12H MARIFER Administration Ibuprofen 800 mg 04/11/18 08:05 04/13/18 11:26 Motrin PO 800 mg BID PRN Administration PAIN Lactobacillus Rhamnosus 1 cap 04/10/18 08:00 04/13/18 08:05 Culturelle PO 1 cap DAILYWM MARIFER Administration Lidocaine 1 applic 04/10/18 14:00 04/13/18 18:12 Xylocaine Ointment 5% TOP 1 applic QID MARIFER Administration Magnesium Oxide 400 mg 04/10/18 23:11 04/12/18 21:20 Mag Ox PO 400 mg BID PRN Administration Cramp Multi-Ingredient Mouthwash/Gargle 30 ml 04/10/18 13:19 04/12/18 21:21 PO 30 ml Q4H PRN Administration Mouth Sore Pain Multivitamins 1 tab 04/11/18 08:00 04/13/18 08:10 Theragran PO 1 tab DAILYWM MARIFER Administration Oxycodone HCl 5 mg 04/09/18 20:49 04/12/18 02:03 Roxicodone PO 5 mg Q4HR PRN Administration Pain 5 to 7 Polyethylene Glycol 17 gm 04/10/18 09:00 04/13/18 10:14 Miralax PO Not Given DAILY MARIFER Pramipexole Dihydrochloride 0.25 mg 04/11/18 21:00 04/12/18 21:21 Mirapex PO 0.25 mg QPM MARIFER Administration Sodium Chloride 10 ml 04/09/18 20:49 04/10/18 17:54 Normal Saline Flush 0.9% IVP 10 ml PRN PRN Administration NEEDED PER PROVIDER ORDERS Sodium Chloride 10 ml 04/10/18 01:00 04/13/18 18:02 Normal Saline Flush 0.9% IVP 10 ml 0100,0900,1700 MARIFER Administration Throat Lozenges 1 lozenge 04/10/18 13:53 04/12/18 05:30 Cepacol MM 1 lozenge Q2HR PRN Administration Throat pain - Lab Result Lab results reviewed: Yes Fish Bone Diagrams: 04/13/18 08:05 04/13/18 08:05 - Diagnostic Imaging Results Diagnostic Imaging Results: Final report reviewed - Additional Planning Condition/Complexity: Guarded My Orders: My Active Orders 04/13/18 11:00 CUL, ANAEROBIC (QUEST) [REFLAB] Routine CUL,BODY FLUID(AEROBIC) [RM] Routine 04/13/18 14:33 Chest [US] Routine Plan Discussed with:: Patient, Spouse Time Spent: 31-60 minutes Subjective - Subjective Patient Reports: Cough (Severe overnight), Shortness of Breath (Improved.), Other (No fevers or chills. No chest pain.) Nursing Reports: No Complaints Objective Vital Signs: Vital Signs - 24 hr 04/12/18 04/12/18 04/13/18 19:40 20:06 00:00 Temperature 36.1 C L 36.3 C L Heart Rate 82 Heart Rate [ 69 88 Brachial] Respiratory 20 18 24 Rate Blood Pressure [Left Brachial artery] Blood Pressure 129/78 130/70 [Right Brachial artery] O2 Saturation 93 98 04/13/18 04/13/18 04/13/18 09:20 15:45 18:24 Temperature 36.4 C L 36.5 C Heart Rate 84 Heart Rate [ 80 72 Brachial] Respiratory 28 H 24 16 Rate Blood Pressure 138/71 H [Left Brachial artery] Blood Pressure 131/71 H [Right Brachial artery] O2 Saturation 93 96 Oxygen O2 Source Room air Oxygen Flow Rate 2 I&O (Last 24 Hrs): Intake and Output Totals x24h 04/11/18 04/12/18 04/13/18 23:59 23:59 23:59 Intake Total 3382.829 2999.441 2550 Output Total 1275 500 Balance 2107.829 2499.441 2550 General: Alert, Oriented x3, Cooperative, Mild distress, Other (Anxious) HEENT: Atraumatic, PERRLA, EOMI, Mucous membr. moist/pink, Other (Tello from radiation on the left side of his face.) Neck: Supple, No JVD, No thyromegaly, +2 carotid pulse wo bruit, No LAD Lymphatic: no adenopathy Neuro: Alert, Non Focal, CN 2-12 Grossly Intact, Oriented Times 3 Cardiovascular: Regular rate, Normal S1, Normal S2, No murmurs Respiratory: Chest non-tender, Rales, Rhonchi (Left lower lobe) Abdomen: Normal bowel sounds, Soft, No tenderness, No hepatospenomegaly, No masses Extremities: No clubbing, No cyanosis, No edema, Normal pulses Skin: No breakdown Comments/Notes: Skin burn from radiation on the face - Results Results: Laboratory Results WBC 22.6 x10^3/uL (4.8-10.8) H 04/13/18 08:05 RBC 3.25 10^6/uL (4.70-6.10) L 04/13/18 08:05 Hgb 12.8 g/dL (14.0-18.0) L 04/13/18 08:05 Hct 38.2 % (42.0-52.0) L 04/13/18 08:05 MCV 117.6 fL (80.0-94.0) H 04/13/18 08:05 MCH 39.5 pg (27.0-31.0) H 04/13/18 08:05 MCHC 33.6 g/dL (32.0-36.0) 04/13/18 08:05 RDW 21.8 % (12.0-15.0) H 04/13/18 08:05 Plt Count 1025 10^3/uL (130-450) H* 04/13/18 08:05 MPV 9.1 fL (7.4-11.4) 04/13/18 08:05 Neut # (Auto) 19.0 10^3/uL (1.5-6.6) H 04/13/18 08:05 Lymph # (Auto) 1.0 10^3/uL (1.5-3.5) L 04/13/18 08:05 Tyrrell # (Auto) 1.7 10^3/uL (0.0-1.0) H 04/13/18 08:05 Eos # (Auto) 0.6 10^3/uL (0.0-0.7) 04/13/18 08:05 Baso # (Auto) 0.3 10^3/uL (0.0-0.1) H 04/13/18 08:05 Absolute Nucleated RBC 0.00 x10^3/uL 04/13/18 08:05 Total Counted 100 04/10/18 06:10 Band Neuts % (Manual) Not Reportable 04/13/18 08:05 Abnorm Lymph % (Manual) Not Reportable 04/13/18 08:05 Nucleated RBC % 0.0 /100WBC 04/13/18 08:05 Neutrophils # (Manual) Not Reportable 04/13/18 08:05 Lymphocytes # (Manual) Not Reportable 04/13/18 08:05 Monocytes # (Manual) Not Reportable 04/13/18 08:05 Eosinophils # (Manual) Not Reportable 04/13/18 08:05 Basophils # (Manual) Not Reportable 04/13/18 08:05 Differential Comment MANUAL=AUTO DIFF 04/13/18 08:05 Manual Slide Review Indicated 04/12/18 06:30 WBC Morphology 1+ VACUOLATION (NORMAL) 1+ TOXIC GRANULATION (NORMAL) 1+ HYPERSEG NEUT (NORMAL) 04/13/18 08:05 WBC Morphology 1+ VACUOLATION (NORMAL) 1+ TOXIC GRANULATION (NORMAL) 1+ HYPERSEG NEUT (NORMAL) 04/13/18 08:05 WBC Morphology 1+ VACUOLATION (NORMAL) 1+ TOXIC GRANULATION (NORMAL) 1+ HYPERSEG NEUT (NORMAL) 04/13/18 08:05 Platelet Estimate INCREASED (>450,000) (NORMAL) 04/13/18 08:05 Platelet Morphology 1+ GIANT PLATELETS (NORMAL) 04/13/18 08:05 RBC Morph Micro Appear 2+ ANISOCYTOSIS (NORMAL) 1+ OVALOCYTES (NORMAL) 1+ TEARDROP CELLS (NORMAL) 04/10/18 06:10 RBC Morph Micro Appear 2+ ANISOCYTOSIS (NORMAL) 1+ OVALOCYTES (NORMAL) 1+ TEARDROP CELLS (NORMAL) 04/10/18 06:10 RBC Morph Micro Appear 2+ ANISOCYTOSIS (NORMAL) 1+ OVALOCYTES (NORMAL) 1+ TEARDROP CELLS (NORMAL) 04/10/18 06:10 RBC Morph Micro Appear 2+ MACROCYTOSIS (NORMAL) 1+ POLYCHROMASIA (NORMAL) 04/13/18 08:05 RBC Morph Micro Appear 2+ MACROCYTOSIS (NORMAL) 1+ POLYCHROMASIA (NORMAL) 04/13/18 08:05 PT 19.3 secs (9.9-12.6) H 04/13/18 08:05 INR 1.7 (0.8-1.2) H 04/13/18 08:05 VBG pH 7.431 (7.31-7.41) H 04/13/18 08:05 Ionized Calcium 1.07 mmol/L (1.15-1.33) L 04/13/18 08:05 Sodium 136 mmol/L (135-145) 04/13/18 08:05 Potassium 3.9 mmol/L (3.5-5.0) 04/13/18 08:05 Chloride 107 mmol/L (101-111) 04/13/18 08:05 Carbon Dioxide 22 mmol/L (21-32) 04/13/18 08:05 Anion Gap 7.0 (6-13) 04/13/18 08:05 BUN 16 mg/dL (6-20) 04/13/18 08:05 Creatinine 0.6 mg/dL (0.6-1.2) 04/13/18 08:05 Estimated GFR (MDRD) 131 (>89) 04/13/18 08:05 Glucose 106 mg/dL (70-100) H 04/13/18 08:05 Calcium 8.1 mg/dL (8.5-10.3) L 04/13/18 08:05 Ionized Calcium YES 04/13/18 08:05 Phosphorus 3.4 mg/dL (2.5-4.6) 04/13/18 08:05 Magnesium 2.6 mg/dL (1.7-2.8) 04/13/18 08:05 Total Bilirubin 1.4 mg/dL (0.2-1.0) H 04/13/18 08:05 AST 33 IU/L (10-42) 04/13/18 08:05 ALT 40 IU/L (10-60) 04/13/18 08:05 Alkaline Phosphatase 298 IU/L (42-121) H 04/13/18 08:05 Troponin I 0.04 ng/mL (<0.49) 04/09/18 18:08 B-Natriuretic Peptide 202 pg/mL (5-100) H 04/09/18 18:31 Total Protein 6.9 g/dL (6.7-8.2) 04/13/18 08:05 Albumin 2.8 g/dL (3.2-5.5) L 04/13/18 08:05 Globulin 4.1 g/dL (2.1-4.2) 04/13/18 08:05 Albumin/Globulin Ratio 0.7 (1.0-2.2) L 04/13/18 08:05 Lipase 19 U/L (22-51) L 04/09/18 18:31 - Procedures Procedures: Procedures INSPECTION OF LOWER INTESTINAL TRACT, ENDO (08/01/16) ABX Reporting Has patient been on IV antibiotics over the past 48 hours?: Yes Current Medications - Current Medications Current Medications: Medications Summary Acetaminophen (Tylenol) 650 mg PO Q4HR PRN PRN Reason: Pain 1 to 4 Last Admin: 04/12/18 10:07 Dose: 650 mg Acetaminophen Assessment Document 04/12/18 10:07 AK (Rec: 04/12/18 10:07 AK [id number]) Pain or Fever Assessment Pain Scale Used Mild - Moderate - Severe Re-Assess: Acetaminophen Effectiveness Document 04/12/18 11:07 AK (Rec: 04/12/18 12:58 AK [id number]) Effect on Pain or Fever Effective/Ineffective Effective Albuterol/Ipratropium (Duoneb) 3 ml INH Q4HR PRN PRN Reason: Wheezing Last Admin: 04/13/18 18:26 Dose: 3 ml Aspirin ([facility] [place] Aspirin) 81 mg PO DAILY MARIFER Last Admin: 04/13/18 09:11 Dose: 81 mg Guaifenesin/Codeine Phosphate (Robitussin Ac) 5 ml PO Q6HR PRN PRN Reason: Cough Last Admin: 04/13/18 18:03 Dose: 5 ml Azithromycin 500 mg/ Sodium (Chloride) 250 mls @ 250 mls/hr IV DAILY [facility] Last Infusion: 04/13/18 11:31 Dose: 0 mls/hr Medication Titration Document 04/13/18 11:31 SUTTOB (Rec: 04/13/18 11:31 SUTTOB [id number]) Titration Intake Titration Intake 250 Cumulative Intake 250 Container Volume 0 Elapsed Time 3h 24m Titration Dosing IV Rate 0 Increase/Decrease Infused Cumulative Dose 2000 Total Intake (Rx) 1,000 Volume Adjustment/Waste 0 Ceftriaxone Sodium 2 gm/ (Sodium Chloride) 100 mls @ 200 mls/hr IV DAILY [facility] Last Infusion: 04/13/18 10:14 Dose: 0 mls/hr Medication Titration Document 04/13/18 10:14 SUTTOB (Rec: 04/13/18 10:14 SUTTOB [id number]) Titration Intake Titration Intake 100 Cumulative Intake 100 Container Volume 0 Elapsed Time 3h 37m Titration Dosing IV Rate 0 Increase/Decrease Infused Cumulative Dose 0 Total Intake (Rx) 400 Volume Adjustment/Waste 0 Acetaminophen (Ofirmev) 100 mls @ 400 mls/hr IV Q6HR PRN PRN Reason: PAIN Last Infusion: 04/13/18 18:17 Dose: 0 mls/hr Medication Titration Document 04/13/18 18:17 KK (Rec: 04/13/18 18:44 KK [id number]) Titration Intake Titration Intake 100 Cumulative Intake 100 Container Volume 0 Elapsed Time 2h 17m Titration Dosing IV Rate 0 Increase/Decrease Infused Cumulative Dose 8000 Total Intake (Rx) 800 Volume Adjustment/Waste 0 Dextrose/Sodium Chloride (D5ns) 1,000 mls @ 83.333 mls/hr IV .Q12H [facility] Last Admin: 04/13/18 13:43 Dose: 83.33 mls/hr Medication Titration Document 04/13/18 13:43 SUTTOB (Rec: 04/13/18 13:44 SUTTOB [id number]) Titration Intake Container Volume 1,000 Elapsed Time 62h 59m Titration Dosing IV Rate 83.33 Increase/Decrease Started/Decreased Cumulative Dose Not Applicable Total Intake (Rx) 4,965.27 Volume Adjustment/Waste 0 Ibuprofen (Motrin) 800 mg PO BID PRN PRN Reason: PAIN Last Admin: 04/13/18 11:26 Dose: 800 mg Pain Assessment Document 04/13/18 11:26 SUTTOB (Rec: 04/13/18 11:26 SUTTOB [id number]) Pain Level Pain Scale Used [place] Re-Assess: Pain Reassessment Document 04/13/18 12:26 SUTTOB (Rec: 04/13/18 13:44 SUTTOB [id number]) Reassessment Effective/Ineffective Ineffective Lactobacillus Rhamnosus (Culturelle) 1 cap PO DAILYWM [facility] Last Admin: 04/13/18 08:05 Dose: 1 cap Lidocaine (Xylocaine Ointment 5%) 1 applic TOP QID [facility] Last Admin: 04/13/18 18:12 Dose: 1 applic Magnesium Oxide (Mag Ox) 400 mg PO BID PRN PRN Reason: Cramp Last Admin: 04/12/18 21:20 Dose: 400 mg Multi-Ingredient Mouthwash/Gargle () 30 ml PO Q4H PRN PRN Reason: Mouth Sore Pain Last Admin: 04/12/18 21:21 Dose: 30 ml Multivitamins (Theragran) 1 tab PO DAILYWM [facility] Last Admin: 04/13/18 08:10 Dose: 1 tab Oxycodone HCl (Roxicodone) 5 mg PO Q4HR PRN PRN Reason: Pain 5 to 7 Last Admin: 04/12/18 02:03 Dose: 5 mg Pain Assessment Document 04/12/18 02:03 LS (Rec: 04/12/18 02:04 LS [id number]) Pain Level Pain Scale Used 0-10 Intensity (0-10) 6 Re-Assess: Pain Reassessment Document 04/12/18 03:03 LS (Rec: 04/12/18 05:32 [id number]) Reassessment Effective/Ineffective Effective Polyethylene Glycol (Miralax) 17 gm PO DAILY [facility] Last Admin: 04/13/18 10:14 Dose: Not Given Non-Admin Reason: Patient Refused Pramipexole Dihydrochloride (Mirapex) 0.25 mg PO QPM [facility] Last Admin: 04/12/18 21:21 Dose: 0.25 mg Sodium Chloride (Normal Saline Flush 0.9%) 10 ml IVP PRN PRN PRN Reason: NEEDED PER PROVIDER ORDERS Last Admin: 04/10/18 17:54 Dose: 10 ml Sodium Chloride (Normal Saline Flush 0.9%) 10 ml IVP 0100,0900,1700 [facility] Last Admin: 04/13/18 18:02 Dose: 10 ml Throat Lozenges (Cepacol) 1 lozenge MM Q2HR PRN PRN Reason: Throat pain Last Admin: 04/12/18 05:30 Dose: 1 lozenge Discontinued Medications Albuterol/Ipratropium (Duoneb) 3 ml INH RTQID [facility] Stop: 04/12/18 15:01 Last Admin: 04/12/18 14:31 Dose: 3 ml Guaifenesin (Mucinex) 600 mg PO BID [facility] Last Admin: 04/12/18 08:22 Dose: 600 mg Sodium Chloride (Normal Saline 0.9%) 500 mls @ 999 mls/hr IV ONCE ONE Stop: 04/10/18 19:20 Last Infusion: 04/10/18 20:02 Dose: 0 mls/hr Medication Titration Document 04/10/18 20:02 (Rec: 04/10/18 21:00 [id number]) Titration Intake Titration Intake 466.7 Cumulative Intake 500 Container Volume 0 Elapsed Time 31m Titration Dosing IV Rate 0 Increase/Decrease Infused Cumulative Dose Not Applicable Total Intake (Rx) 500 Volume Adjustment/Waste 0 Iopamidol (Isovue-300) 100 ml IVP ONCE ONE Stop: 04/10/18 08:46 Last Admin: 04/10/18 08:46 Dose: 100 ml Ioversol (Optiray 320) 50 ml PO ONCE ONE Stop: 04/10/18 09:10 Last Admin: 04/10/18 09:09 Dose: 50 ml Pramipexole Dihydrochloride (Mirapex) 0.25 mg PO ONCE MARIFER Stop: 04/11/18 02:00 Last Admin: 04/11/18 00:37 Dose: 0.25 mg
--- NOTE | 2018-04-13 20:00 | Ultrasound Report ---
Reason: Evaluate pleural effusion Procedure Date: 04/13/2018 Accession Number: [id number] / [id number] Procedure: US - Chest CPT Code: FULL RESULT: EXAM: ULTRASOUND CHEST LIMITED EXAM DATE: 04/13/2018 03:47 PM. CLINICAL HISTORY: Evaluate pleural effusion. COMPARISON: None. TECHNIQUE: Real-time ultrasound scanning with static images obtained. FINDINGS: Left chest ultrasound performed. A negligible amount of left pleural fluid is visualized. There is insufficient fluid to perform thoracentesis. IMPRESSION: Negligible left pleural effusion RADIA
[2018-04-13] MEDS: PRAMIPEXOLE 0.25 MG TABLET PO SCH (21:17)
[2018-04-14] MEDS: ACETAMINOPHEN 1,000 MG/100 ML 100 ML IV PRN
[2018-04-14] MEDS: SODIUM CHLORIDE FLUSH 0.9% 10 ML SYRINGE IVP SCH ×2 (01:17→09:37)
[2018-04-14] MEDS: DEXTROSE 5%-0.9% NACL 1,000 ML IV SCH (01:17)
[2018-04-14] MEDS: guaiFENesin/CODEINE 5 ML UDC PO PRN (06:01)
[2018-04-14] MEDS: ACETAMINOPHEN 325 MG TABLET PO PRN (06:01)
[2018-04-14] MEDS: BENZOCAINE/MENTHOL LOZENGE MM PRN (06:18)
[2018-04-14] MEDS: MULTIVITAMIN TABLET PO SCH (07:28)
[2018-04-14] MEDS: LACTOBACILLUS RHAMNOSUS GG CAPSULE PO SCH (07:28)
[2018-04-14] MEDS: MAGNESIUM OXIDE 400 MG TABLET PO PRN (07:28)
[2018-04-14 07:39] VITALS: BP 132/73
[2018-04-14 08:33] LABS: EOSINOPHILS % (AUTO) 1.7 %; HGB - HEMOGLOBIN 12.4 g/dL (14.0-18.0); LYMPHOCYTES % (AUTO) 5.2 %; MEAN CORPUSCULAR HEMOGLOBIN 38.8 pg (27.0-31.0); MEAN CORPUSCULAR HGB CONC 33.3 g/dL (32.0-36.0); MEAN CORPUSCULAR VOLUME 116.6 fL (80.0-94.0); MEAN PLATELET VOLUME 8.9 fL (7.4-11.4); MONOCYTES % (AUTO) 6.9 %; NEUTROPHILS % (AUTO) 84.2 %; RED BLOOD COUNT 3.21 10^6/uL (4.70-6.10); RED CELL DISTRIBUTION WIDTH 22.3 % (12.0-15.0); WHITE BLOOD COUNT 22.2 x10^3/uL (4.8-10.8)
[2018-04-14 08:37] LABS: PLT - PLATELET COUNT 1080 10^3/uL (130-450)
[2018-04-14 08:38] LABS: ABNORMAL LYMPHS % (MANUAL) 0 %
[2018-04-14 08:42] LABS: ALBUMIN 2.7 g/dL (3.2-5.5); ALBUMIN/GLOBULIN RATIO 0.7 (1.0-2.2); ALKALINE PHOSPHATASE 359 IU/L (42-121); ALT ALANINE AMINOTRANSFERASE 46 IU/L (10-60); AST ASPARTATE AMINOTRANSFERASE 38 IU/L (10-42); BILIRUBIN,TOTAL 1.1 mg/dL (0.2-1.0); BUN - BLOOD UREA NITROGEN 12 mg/dL (6-20); CALCIUM 8.2 mg/dL (8.5-10.3); CARBON DIOXIDE - CO2 21 mmol/L (21-32); CHLORIDE 108 mmol/L (101-111); CREATININE 0.7 mg/dL (0.6-1.2); GFR - MDRD 110 (>89); GLUCOSE 114 mg/dL (70-100); MAGNESIUM 2.5 mg/dL (1.7-2.8); PHOSPHORUS 3.7 mg/dL (2.5-4.6); SODIUM 136 mmol/L (135-145); TOTAL PROTEIN 6.8 g/dL (6.7-8.2)
[2018-04-14 08:52] LABS: BAND NEUTROPHILS % (MANUAL) 3 %; LYMPHOCYTES # (MANUAL) 0.9 10^3/uL (1.5-3.5); LYMPHOCYTES % (MANUAL) 3 %; MONOCYTES # (MANUAL) 1.1 10^3/uL (0.0-1.0); NEUTROPHILS # (MANUAL) 20.2 10^3/uL (1.5-6.6); NEUTROPHILS % (MANUAL) 88 %
[2018-04-14 08:53] LABS: DIFFERENTIAL COMMENT MANUAL DIFFERENTIAL; PLATELET ESTIMATE, MANUAL INCREASED (>450,000) (NORMAL); PLATELET MORPHOLOGY RARE GIANT PLATELETS (NORMAL); RBC MORPHOLOGY (MULTIPLE) 3+ ANISOCYTOSIS (NORMAL)
[2018-04-14 09:15] LABS: VBG PH 7.388 (7.31-7.41)
--- NOTE | 2018-04-14 09:23 | XRAY Report ---
Reason: Left pleural effusion Procedure Date: 04/14/2018 Accession Number: [id number] / [id number] Procedure: XR - Chest 1 View X-Ray CPT Code: 30000 FULL RESULT: EXAM: CHEST RADIOGRAPHY EXAM DATE: 04/14/2018 08:52 AM. CLINICAL HISTORY: Left pleural effusion. COMPARISON: CHEST 1 VIEW 04/12/2018 11:49 AM. TECHNIQUE: 1 view. FINDINGS: Persistent opacification of most of the left hemithorax due to large pleural effusion with underlying consolidation/mass not excluded. The effusion may have increased slightly in size. Right lung demonstrates prominence of central vessels and interstitial edema with no focal lobar consolidation. There is no pneumothorax. Median sternotomy changes, dual-lead pacemaker and cardiomegaly appear similar to prior. IMPRESSION: Overall stability with persistent large left pleural effusion which may have slightly increased in size. RADIA
[2018-04-14] MEDS: LIDOCAINE OINTMENT 5% 35.44 GM TUBE TOP SCH (09:37)
[2018-04-14] MEDS: POLYETHYLENE GLYCOL 3350 17 GM PACKET PO SCH (09:37)
[2018-04-14] MEDS: cefTRIAXone 2 GM in SODIUM CHLORIDE 0.9% MINIBAG 100 ML IV SCH (09:37)
[2018-04-14] MEDS: ASPIRIN CHEW 81 MG TABLET PO SCH (09:37)
[2018-04-14] MEDS: AZITHROMYCIN INJ 500 MG in SODIUM CHLORIDE 0.9% 250 ML IV SCH (10:26)
[2018-04-14] MEDS: IPRATROPIUM/ALBUTEROL 3 ML NEB INH PRN (10:50)
[2018-04-14] MEDS ORDERED: levoFLOXacin 750 MG/150 ML 750 MG/150 ML BAG IV SCH (11:00)
[2018-04-14] MEDS ORDERED: PIPERACILLIN/TAZOBACTAM 3.375 GM in SODIUM CHLORIDE 0.9% MINIBAG 100 ML IV SCH (11:00)
--- NOTE | 2018-04-14 12:05 | DISCHARGE SUMMARY ---
"Discharge Summary Admit Date: 04/09/18 Discharge Date: 04/14/18 Discharging Provider: Micha Pagan MD Primary Care Provider: Sunshine MARIO Code Status: Attempt Resuscitation Condition at Discharge: Fair Discharge Disposition: 02 Transfer Acute Care Hosp Discharge Facility Name: [facility] (Dr. Jo) - DIAGNOSES Admission Diagnoses: 1. Acute respiratory failure with hypoxia 2. Pneumonia 3. Left pleural effusion 4. Myeloproliferative disorder 5. Radiation dermatitis Discharge Diagnoses with Status of Each Condition: 1. Community-acquired pneumonia: Guarded 2. Pleural effusion: Guarded 3. Myeloproliferative disorder: Guarded 4. Radiation dermatitis: Stable 5. BPH: Stable 6. Basal cell and squamous cell cancer: Stable 7. Acute respiratory failure with hypoxia: Resolved - HPI History of Present Illness: 77 yo male pt with JAK2 positive, myeloproliferative neoplasm, CAD, CABG w/ 2 stents, chronic sinusitis, bronchitis, anemia from hydroxyurea treatment, squamous and basal cell carcinoma presents to the emergency department with pleuristic chest pain induced by cough of 10 days. Pt has been receiving 22 radiation treatments for squamous cell carcinoma since March 09. Squamous cell carcinoma located on left nares and central upper vermil[place] border. Pt hydroxyurea treatment for was halted on March 07 due to radiation treatment. Pt states 10 days ago he started to have a productive cough with yellow, brown sputum. Pt states lethargy, decreased appetite over past 3 days and weight gain of 8 pounds during this duration. Pt has received over the counter cough suppressants with no suppression. Pt states the pain induced by the cough is located near the left 4th rib and 10-12th rib. Pt states he had one episode of nausea during a coughing episode, but denies vomiting, fever, chills, chest pain. Pt was seen by Sunshine STALLINGS, 1 day prior to visit and a chest x- ray was completed revealing effusion and pleural thickening - he was not tachypneic, afebrile, non-toxic. Pt continued to have productive cough and pleuritic pain. Pt also confirms abdominal pain stating that he has not had a bowel movement for 4 days which is unusual for him. His states she gave him prunes, but he has not had a bm. In the ER he was afebrile. Tachypneic, hypoxic, decreased sounds left lung, wheezing on the right. CXR showed a much larger left pleural effusion that yesterday. Surgery was consulted and left sided chest tube placed for pleural effusion. Pt has had 1100 cc of fluid drained from his left pluritic space. Pt confirms that his shortness of breath is improved. - CONSULTS | PROCEDURES Consultations: General Surgery Procedures: Chest Tube placement and removal - HOSPITAL COURSE Hospital Course: Surgery was consulted in the emergency department and placed a left-sided chest tube into the pleural effusion which drained 1.1 L of fluid from the left pleuritic space. Unfortunately the fluid was not sent to the lab and therefore no cultures, cell count differential, cytology or other labs were performed on the sample. The patient was admitted to the medical [facility] with chest tube in place and started on IV antibiotics with ceftriaxone and azithromycin. On arri padmini to the emergency department the patient was hypoxic down to 90% on room air, tachypneic with respiratory rate in the 30s it appeared to be in respiratory distress with hypoxia requiring 3 L of oxygen. The patient also had an elevated white blood cell count of 31.8 which was significantly elevated from his baseline. The patient's platelet count was also elevated at 1020. The patient's oncologist stated that these counts were likely elevated acutely in the setting of an infection. The patient's chest tube remained in place for the next 3 days but had very minimal drainage. The patient appeared to be improving as his leukocytosis was improving and down to 18.6, he was able to be weaned off of oxygen. The patient did undergo a CT scan of the chest to further evaluate the left pleural effusion. CT scan showed a loculated left effusion with portions in the anterior medial chest adjacent to the mediastinum 1.8 cm and portions along the left lung base 2.7 cm. Small amount of air in the pleural effusion at the left lung base. Left lower lobe consolidation or infiltrate was also noted. Given minimal drainage from the chest tube the chest tube was finally removed. Chest x-ray after removal of the chest tube showed the patient had an enlarging left pleural effusion. The patient began becoming more tachypneic and appeared to have increasing shortness of breath. The patient's leukocytosis which was trending down to 18.6 increased up to 22.6. A thoracentesis was set up at bedside however the radiologist could not find a pocket to remove fluid safely. Therefore the thoracentesis was aborted and we were still unable to get a sample of the patient's pleural fluid. Another repeat chest x-ray was performed on 04/14/2018 this time showing a persistent large left pleural effusion which increased slightly in size. After discussion with the radiologist it was thought that the patient likely had a loculated effusion that we were unable to get to for the thoracentesis. I spoke briefly with the general surgeon who recommended transfer of the patient for thoracotomy and cardio-thoracic surgery evaluation. The patient's antibiotics were changed to IV Zosyn and Levaquin as it appeared the patients condition was worsening. Call was made to [facility] in [place] and I spoke with Dr. Jo hospitalist who accepted the patient in transfer as [facility] has cardiothoracic surgery available at their facility and would be better equipped to handle this patient. The patient was in stable condition regarding his vital signs at the time of transfer as his temperature was 36.2, heart rate was 71, blood pressure was 132/73, respiratory rate was in the low 20s and oxygen saturation was 95% on room air. The patient was continued on IV antibiotics and will need further evaluation from specialists that are unavailable at our small facility. We are very grateful for the help provided to us from tertiary care facilities in the area willing to help us with more complicated patients such as this. - ALLERGIES Allergies/Adverse Reactions: Allergies Allergy/AdvReac Type Severity Reaction Status Date / Time No Known Drug Allergies Allergy Verified 04/09/18 17:38 - MEDICATIONS Home Medications: Ambulatory Orders Medication Instructions Recorded Confirmed Aspirin Chewable [[facility] Malik 81 mg PO DAILY 10/20/12 04/10/18 Aspirin] Lactobacillus Acidophilus 1 each PO DAILY 10/20/12 04/10/18 [Acidophilus] Nitroglycerin [Nitrostat] 0.4 mg SL Q5MIN PRN 02/16/13 04/10/18 traMADol [Ultram] 50 mg PO TID PRN 04/09/18 04/10/18 Multivitamin [Theragran] 1 each PO DAILY 04/10/18 04/10/18 - PHYSICAL EXAM AT DISCHARGE General Appearance: positive: Alert, Mild distress (Tachypnic ), Anxious Eyes Bilateral: positive: Normal inspection, PERRL, EOMI, No lid inflammation, Conjunctivae nml, No scleral icterus, Other (Left facial area burned from radiation) ENT: positive: ENT inspection nml, Pharynx nml, No signs of dehydration. negative: Purulent nasal drainage, Pharyngeal erythema, Oral lesions Neck: positive: Nml inspection, Thyroid nml, No JVD, Trachea midline. negative: Thyromegaly, Lymphadenopathy (R), Lymphadenopathy (L), Stiff neck, Carotid bruit, Tracheal deviation Respiratory: positive: Chest non-tender, Rales (Left lung), Rhonchi (Left lung), Other (Conversational dyspnea) Cardiovascular: positive: Regular rate & rhythm, No murmur, No gallop Peripheral Pulses: positive: 2+ Abdomen: positive: Non-tender, No organomegaly, Nml bowel sounds, No distention. negative: Guarding, Rebound, Hepatomegaly, Splenomegaly Back: positive: Nml inspection. negative: CVA tenderness (R), CVA tenderness (L) Skin: positive: Color nml, Other (Radiation gayle to face) Extremities: positive: Non-tender, Full ROM, Nml appearance, No pedal edema Neurologic/Psychiatric: positive: Oriented x3, CN's nml (2-12), Motor nml, Sensation nml, Mood/affect nml - LABS Result Diagrams: 04/14/18 08:25 04/14/18 08:25 Other Lab Results: Laboratory Results WBC 22.2 x10^3/uL (4.8-10.8) H 04/14/18 08:25 RBC 3.21 10^6/uL (4.70-6.10) L 04/14/18 08:25 Hgb 12.4 g/dL (14.0-18.0) L 04/14/18 08:25 Hct 37.4 % (42.0-52.0) L 04/14/18 08:25 MCV 116.6 fL (80.0-94.0) H 04/14/18 08:25 MCH 38.8 pg (27.0-31.0) H 04/14/18 08:25 MCHC 33.3 g/dL (32.0-36.0) 04/14/18 08:25 RDW 22.3 % (12.0-15.0) H 04/14/18 08:25 Plt Count 1080 10^3/uL (130-450) H* 11/20/18 08:25 MPV 8.9 fL (7.4-11.4) 04/14/18 08:25 Neut # (Auto) Not Reportable 04/14/18 08:25 Lymph # (Auto) Not Reportable 04/14/18 08:25 [place] # (Auto) Not Reportable 04/14/18 08:25 Eos # (Auto) Not Reportable 04/14/18 08:25 Baso # (Auto) Not Reportable 04/14/18 08:25 Absolute Nucleated RBC Not Reportable 04/14/18 08:25 Total Counted 100 04/14/18 08:25 Band Neuts % (Manual) 3 % (0-10) 04/14/18 08:25 Reactive Lymphs % (Man) 1 % 04/14/18 08:25 Abnorm Lymph % (Manual) 0 % 04/14/18 08:25 Nucleated RBC % Not Reportable 04/14/18 08:25 Neutrophils # (Manual) 20.2 10^3/uL (1.5-6.6) H 04/14/18 08:25 Lymphocytes # (Manual) 0.9 10^3/uL (1.5-3.5) L 04/14/18 08:25 Monocytes # (Manual) 1.1 10^3/uL (0.0-1.0) H 04/14/18 08:25 Eosinophils # (Manual) 0.0 10^3/uL (0-0.7) 04/14/18 08:25 Basophils # (Manual) 0.0 10^3/uL (0-0.1) 04/14/18 08:25 Differential Comment MANUAL DIFFERENTIAL 04/14/18 08:25 Manual Slide Review Indicated 04/12/18 06:30 WBC Morphology 1+ VACUOLATION (NORMAL) 1+ TOXIC GRANULATION (NORMAL) 1+ HYPERSEG NEUT (NORMAL) 04/13/18 08:05 WBC Morphology 1+ VACUOLATION (NORMAL) 1+ TOXIC GRANULATION (NORMAL) 1+ H YPERSEG NEUT (NORMAL) 04/13/18 08:05 WBC Morphology 1+ VACUOLATION (NORMAL) 1+ TOXIC GRANULATION (NORMAL) 1+ HYPERSEG NEUT (NORMAL) 04/13/18 08:05 Platelet Estimate INCREASED (>450,000) (NORMAL) 04/14/18 08:25 Platelet Morphology RARE GIANT PLATELETS (NORMAL) 04/14/18 08:25 RBC Morph Micro Appear 2+ ANISOCYTOSIS (NORMAL) 1+ OVALOCYTES (NORMAL) 1+ TE ARDROP CELLS (NORMAL) 04/10/18 06:10 RBC Morph Micro Appear 2+ ANISOCYTOSIS (NORMAL) 1+ OVALOCYTES (NORMAL) 1+ TEARDROP CELLS (NORMAL) 04/10/18 06:10 RBC Morph Micro Appear 2+ MACROCYTOSIS (NORMAL) 1+ POLYCHROMASIA (NORMAL) 04/13/18 08:05 RBC Morph Micro Appear 2+ MACROCYTOSIS (NORMAL) 1+ POLYCHROMASIA (NORMAL) 04/13/18 08:05 RBC Morph Micro Appear 3+ ANISOCYTOSIS (NORMAL) 04/14/18 08:25 PT 19.3 secs (9.9-12.6) H 04/13/18 08:05 INR 1.7 (0.8-1.2) H 04/13/18 08:05 VBG pH 7.388 (7.31-7.41) 04/14/18 08:25 Ionized Calcium 1.11 mmol/L (1.15-1.33) L 04/14/18 08:25 Sodium 136 mmol/L (135-145) 04/14/18 08:25 Potassium 3.9 mmol/L (3.5-5.0) 04/14/18 08:25 Chloride 108 mmol/L (101-111) 04/14/18 08:25 Carbon Dioxide 21 mmol/L (21-32) 04/14/18 08:25 Anion Gap 7.0 (6-13) 04/14/18 08:25 BUN 12 mg/dL (6-20) 04/14/18 08:25 Creatinine 0.7 mg/dL (0.6-1.2) 04/14/18 08:25 Estimated GFR (MDRD) 110 (>89) 04/14/18 08:25 Glucose 114 mg/dL (70-100) H 04/14/18 08:25 Calcium 8.2 mg/dL (8.5-10.3) L 04/14/18 08:25 Ionized Calcium YES 04/14/18 08:25 Phosphorus 3.7 mg/dL (2.5-4.6) 04/14/18 08:25 Magnesium 2.5 mg/dL (1.7-2.8) 04/14/18 08:25 Total Bilirubin 1.1 mg/dL (0.2-1.0) H 04/14/18 08:25 AST 38 IU/L (10-42) 04/14/18 08:25 ALT 46 IU/L (10-60) 04/14/18 08:25 Alkaline Phosphatase 359 IU/L (42-121) H 04/14/18 08:25 Troponin I 0.04 ng/mL (<0.49) 04/09/18 18:08 B-Natriuretic Peptide 202 pg/mL (5-100) H 04/09/18 18:31 Total Protein 6.8 g/dL (6.7-8.2) 04/14/18 08:25 Albumin 2.7 g/dL (3.2-5.5) L 04/14/18 08:25 Globulin 4.1 g/dL (2.1-4.2) 04/14/18 08:25 Albumin/Globulin Ratio 0.7 (1.0-2.2) L 04/14/18 08:25 Lipase 19 U/L (22-51) L 04/09/18 18:31 - DIAGNOSTIC IMAGING Diagnostic Imaging Results: Final report reviewed Diagnostic Imaging Results Comments: FULL RESULT: EXAM: CHEST RADIOGRAPHY EXAM DATE: 04/08/2018 10:35 AM. CLINICAL HISTORY: Cough. COMPARISON: 08/31/2014 9:33 AM. TECHNIQUE: 2 views. FINDINGS: Lungs/Pleura: There is new dense confluent opacity in the retrocardiac left lower lobe. There is upward convexity on the lateral projection likely associated with pleural fluid and/or pleural thickening. No extra ventilatory air. Right lung is clear. Mediastinum: Heart is mildly enlarged. Mediastinal hilar contours within normal limits. Other: Stable appearance of dual lead left pectoral pacing device with intact median sternotomy wires. IMPRESSION: New confluent opacity in the left lower lung with upward convex border and associated effusion and/or pleural thickening. In the right clinical setting this could represent pneumonia. Regardless, density should be followed to radiographic resolution to exclude underlying mass. EXAM: [id number] XR/CXR1VW ([id number]) Reason: chest pain Procedure Date: 04/09/2018 Accession Number: [id number] / [id number] Procedure: XR - Chest 1 View X-Ray CPT Code: 00858 FULL RESULT: EXAM: CHEST RADIOGRAPHY EXAM DATE: 04/09/2018 06:27 PM. CLINICAL HISTORY: Chest pain. Cough. COMPARISON: CHEST 2 VIEW PA/LAT 04/08/2018 10:09 AM. TECHNIQUE: 1 view. FINDINGS: Lungs/Pleura: Large left pleural effusion, significantly worse, with overlying atelectasis/infiltrate. Otherwise clear lungs. No pneumothorax. No right effusion. The Mediastinum: Prior CABG. Heart size obscured by large pleural effusion. Other: No bony abnormalities noted. IMPRESSION: Large left pleural effusion, significantly increased since prior, with overlying atelectasis/infiltrate. EXAM: CHEST RADIOGRAPHY EXAM DATE: 04/09/2018 10:38 PM. CLINICAL HISTORY: Post chest tube insertion. COMPARISON: An earlier study of this same date. TECHNIQUE: 1 view. FINDINGS: Lungs/Pleura: Moderate left pleural effusion, decreased since earlier study. Diffuse hazy prominence of lung markings. Atelectasis in left base. No definite pneumothorax. Mediastinum: Moderate to marked cardiomegaly, probably unchanged. Diffuse vascular fullness. Other: Permanent pacemaker on the left with intact leads. Status post median sternotomy and other chronic findings. Left chest tube in place. IMPRESSION: Slightly decreased left pleural effusion following chest tube placement. EXAM: [id number] CT/ABPEW ([id number]) Reason: abd pain, hx of basal cell, stones Procedure Date: 04/10/2018 Accession Number: [id number] / [id number] Procedure: CT - Abdomen/Pelvis W/ CPT Code: FULL RESULT: EXAM: CT ABDOMEN AND PELVIS EXAM DATE: 04/10/2018 08:27 AM. CLINICAL HISTORY: Abd pain, hx of basal cell, stones. COMPARISONS: 04/23/2016. TECHNIQUE: Routine helical CT imaging was performed through the abdomen and pelvis. IV contrast: ISOVUE 300 100mL. Enteric contrast: No. Reconstructions: Coronal and sagittal. In accordance with CT protocol optimization, one or more of the following dose reduction techniques were utilized for this exam: automated exposure control, adjustment of mA and/or KV based on patient size, or use of iterative reconstructive technique. FINDINGS: L Liver: Normal. No masses. Gallbladder/Bile Ducts: Cholelithiasis Spleen: Enlarged 16 cm Pancreas: Normal. Adrenal Glands: Normal. Kidneys: Right kidney subcentimeter density too small to characterize mid pole. Left kidney unremarkable Peritoneal Cavity/Bowel: Diverticulosis most prominent in the sigmoid colon without inflammatory changes. No retroperitoneal adenopathy. No free fluid in the abdomen. Pelvic Organs: Bladder wall thickening anteriorly 11 mm. Prostate mildly enlarged with calcifications. No free fluid in the pelvis. Vasculature: No aneurysms or other significant abnormality. Bones: DJD spine right hip IMPRESSION: 1. Splenomegaly. 2. Cholelithiasis. 3. Bladder wall thickening anteriorly. 4. Diverticulosis EXAM: [id number] CT/CHTW ([id number]) Reason: hx basal cell, now w pleural effu abd pain Procedure Date: 04/10/2018 Accession Number: [id number] / [id number] Procedure: CT - Chest W/ CPT Code: FULL RESULT: EXAM: CT CHEST EXAM DATE: 04/10/2018 08:15 AM. CLINICAL HISTORY: Hx basal cell, now w pleural effu abd pain. COMPARISONS: 05/20/2014. TECHNIQUE: Routine helical CT imaging was performed through the chest. IV contrast: 100 cc Isovue-300. Reconstructions: Coronal and sagittal. In accordance with CT protocol optimization, one or more of the following dose reduction techniques were utilized for this exam: automated exposure control, adjustment of mA and/or KV based on patient size, or use of iterative reconstructive technique. FINDINGS: Lungs/Pleura: Loculated left pleural effusion. A portion of this is medial adjacent to the mediastinum measuring up to 1.8 cm transversely. Some of this is in the lateral, posterior lung base measuring up to 2.7 cm. Small amount of air in the pneumothorax at the lung base. Left-sided chest tube tip in the left lung apex. Atelectasis in the lingula. Consolidation or infiltrate in the left lower lobe superior, posterior and lateral. Small right effusion 1.2 cm with mild right basilar atelectasis. Mediastinum: Mildly prominent mediastinal lymph nodes including right precarinal 0.9 cm , right paratracheal 5 mm, subcarinal 1 cm, prevascular 5 mm. Trace pericardial effusion. Heart size mildly enlarged. 2-lead pacer tips in the right atrium and right ventricle. Poststernotomy. Bones: Degenerative changes in the spine. Poststernotomy. Other: None. IMPRESSION: 1. Loculated left effusion with portions in the anteromedial chest adjacent to the mediastinum 1.8 cm and portions along the left lung base 2.7 cm. Small amount of air in the pleural effusion at the left lung base. Left lower lobe consolidation or infiltrate. 2. Small right effusion 1.2 cm with mild right basilar atelectasis. 3. Mild mediastinal adenopathy EXAM: [id number] XR/CXR1VW ([id number]) Reason: Assess pleural effusion and chest tube Procedure Date: 04/12/2018 Accession Number: [id number] / [id number] Procedure: XR - Chest 1 View X-Ray CPT Code: 35189 FULL RESULT: EXAM: CHEST RADIOGRAPHY EXAM DATE: 04/12/2018 09:21 AM. CLINICAL HISTORY: Assess pleural effusion and chest tube. COMPARISON: CHEST 1 VIEW 04/09/2018 10:24 PM CHEST W/ 04/10/2018 8:11 AM. TECHNIQUE: 1 view. FINDINGS: Lungs/Pleura: Moderate left pleural effusion has somewhat increased compared to prior. Diffuse bilateral hazy and reticular opacities are similar to prior. No pneumothorax. Mediastinum: Moderate enlargement of the cardiac silhouette, similar to prior. Other: Left subclavian dual lead cardiac conduction device stable. Sternotomy wires as before. IMPRESSION: Moderate left pleural effusion has somewhat increased in size compared to prior. EXAM: [id number] XR/CXR1VW ([id number]) Reason: CT removal Procedure Date: 04/12/2018 Accession Number: [id number] / [id number] Procedure: XR - Chest 1 View X-Ray CPT Code: 20402 FULL RESULT: EXAM: CHEST RADIOGRAPHY EXAM DATE: 04/12/2018 12:03 PM. CLINICAL HISTORY: CT removal. COMPARISON: Earlier the same day at 9:08 AM. TECHNIQUE: 1 view. FINDINGS: Lungs/Pleura: Interval removal of the left chest tube. Moderate left pleural effusion is similar to prior. No definite right pleural effusion. No pneumothorax bilaterally. No focal consolidation on the right. Mediastinum: The cardiac silhouette is mostly obscured but there is no marked enlargement or definite change from prior. Other: Left subclavian dual lead cardiac conduction device stable. Sternotomy wires as before. IMPRESSION: Interval removal of the left chest tube. Otherwise no significant change from prior. EXAM: [id number] US/CHEST ([id number]) Reason: Evaluate pleural effusion Procedure Date: 04/13/2018 Accession Number: [id number] / [id number] Procedure: US - Chest CPT Code: FULL RESULT: EXAM: ULTRASOUND CHEST LIMITED EXAM DATE: 04/13/2018 03:47 PM. CLINICAL HISTORY: Evaluate pleural effusion. COMPARISON: None. TECHNIQUE: Real-time ultrasound scanning with static images obtained. FINDINGS: Left chest ultrasound performed. A negligible amount of left pleural fluid is visualized. There is insufficient fluid to perform thoracentesis. IMPRESSION: Negligible left pleural effusion EXAM: [id number] XR/CXR1VW ([id number]) Reason: Left pleural effusion Procedure Date: 04/14/2018 Accession Number: [id number] / [id number] Procedure: XR - Chest 1 View X-Ray CPT Code: 80694 FULL RESULT: EXAM: CHEST RADIOGRAPHY EXAM DATE: 04/14/2018 08:52 AM. CLINICAL HISTORY: Left pleural effusion. COMPARISON: CHEST 1 VIEW 04/12/2018 11:49 AM. TECHNIQUE: 1 view. FINDINGS: Persistent opacification of most of the left hemithorax due to large pleural effusion with underlying consolidation/mass not excluded. The effusion may have increased slightly in size. Right lung demonstrates prominence of central vessels and interstitial edema with no focal lobar consolidation. There is no pneumothorax. Median sternotomy changes, dual-lead pacemaker and cardiomegaly appear similar to prior. IMPRESSION: Overall stability with persistent large left pleural effusion which may have slightly increased in size. - FOLLOW UP Follow Up: Patient has been transferred to [facility] in [place] for higher level of care. Patient presented here with increasing shortness of breath and pleuritic chest pain and was found to have a large left pleural effusion with consolidation concerning for a parapneumonic effusion with pneumonia. Patient was admitted and chest tube was placed as the effusion was found to be loculated on CT scan. There was minimal drainage from the chest tube after 1.1 L was removed from the pleural cavity. The patient's pleural fluid was not sent for analysis due to error. The patient initially appeared to be improving and there was minimal drainage from the chest tube therefore chest tube was removed. Patient then had a decline with increasing pleural effusion which could not be drained by thoracentesis due to it being loculated. At this point general surgery felt that the patient was out of their scope of practice and they would recommend transfer to a tertiary care center with cardiothoracic surgery as patient may need thoracotomy. Patient was continued on IV antibiotics which were switched to Zosyn and Levaquin as the patient was worsening in their condition. Patient was transferred to [facility] in [place] by ambulance. - TIME SPENT Time Spent in Discharge (Minutes): 65"
== END 2018-04-14 13:01 | disposition short-term general hospital (02) | DRG 186 ==
LOC: ED 17:32 → MS2 20:49
PROVIDERS: ADMIT Specialist; ATTEND Internal Medicine
PROC: 0W9B30Z Drainage of Left Pleural Cavity with Drainage Device, Percutaneous Approach (ICD-10-PCS; principal; 2018-04-09)
DX: J90 Pleural effusion, not elsewhere classified (principal); D47.3 Essential (hemorrhagic) thrombocythemia; D72.829 Elevated white blood cell count, unspecified; C44.310 Basal cell carcinoma of skin of unspecified parts of face; J18.1 Lobar pneumonia, unspecified organism; J96.01 Acute respiratory failure with hypoxia; C94.6 Myelodysplastic disease, not elsewhere classified; L59.8 Other specified disorders of the skin and subcutaneous tissue related to radiation; C44.321 Squamous cell carcinoma of skin of nose; C44.329 Squamous cell carcinoma of skin of other parts of face; C44.01 Basal cell carcinoma of skin of lip; C44.311 Basal cell carcinoma of skin of nose; R10.9 Unspecified abdominal pain; K59.00 Constipation, unspecified; I25.10 Atherosclerotic heart disease of native coronary artery without angina pectoris; I10 Essential (primary) hypertension; E78.00 Pure hypercholesterolemia, unspecified; J32.9 Chronic sinusitis, unspecified; G47.61 Periodic limb movement disorder; N40.0 Benign prostatic hyperplasia without lower urinary tract symptoms; H91.92 Unspecified hearing loss, left ear; Z77.22 Contact with and (suspected) exposure to environmental tobacco smoke (acute) (chronic); Z95.5 Presence of coronary angioplasty implant and graft; Z95.1 Presence of aortocoronary bypass graft; Z95.0 Presence of cardiac pacemaker; Z79.82 Long term (current) use of aspirin; Z79.899 Other long term (current) drug therapy
CPT/HCPCS: 32551; 36415; 71045; 71260; 74177; 76604; 80048; 80053; 81599; 82330; 83690; 83735; 83880; 84100; 84484; 85025; 85610; 87040; 87070; 87205; 89051; 94640; 94644; 94645; 99284; 99285

== ENCOUNTER 2018-04-28 09:29 | Outpatient (CLI) | payer MEDICARE, OTHER ==
--- NOTE | 2018-04-28 10:55 | XRAY Report ---
Reason: PLEURAL EFFUSION, PNEUMONIA Procedure Date: 04/28/2018 Accession Number: [id number] / [id number] Procedure: XR - Chest 2 View X-Ray CPT Code: 14452 FULL RESULT: EXAM: CHEST RADIOGRAPHY EXAM DATE: 04/28/2018 10:13 AM. CLINICAL HISTORY: Pleural effusion, pneumonia. COMPARISON: Chest 1 view 04/14/2018. TECHNIQUE: 2 views. FINDINGS: Lungs/Pleura: The left lung effusion is only partially layering, consistent with loculations. No pneumothorax is identified. Opacification of the lower left hemithorax is similar to before, no new consolidation is seen. Mediastinum: The cardiomediastinal silhouette including cardiomegaly, aortic arch calcifications and prior thoracic surgery including pacemaker placement is unchanged. Other: None. IMPRESSION: Loculated pleural effusion. RADIA
== END 2018-04-28 09:30 | disposition home or self-care (01) ==
LOC: DI 09:29
PROVIDERS: ATTEND Physician Assistant Medical
DX: J90 Pleural effusion, not elsewhere classified (principal); J18.9 Pneumonia, unspecified organism
CPT/HCPCS: 71046

== ENCOUNTER 2018-05-05 08:17 | Outpatient (CLI) | payer MEDICARE, OTHER ==
[2018-05-05 09:21] LABS: ALBUMIN 3.4 g/dL (3.2-5.5); ALBUMIN/GLOBULIN RATIO 0.8 (1.0-2.2); ALKALINE PHOSPHATASE 120 IU/L (42-121); ALT ALANINE AMINOTRANSFERASE 39 IU/L (10-60); AST ASPARTATE AMINOTRANSFERASE 21 IU/L (10-42); BILIRUBIN,TOTAL 0.8 mg/dL (0.2-1.0); BUN - BLOOD UREA NITROGEN 15 mg/dL (6-20); CALCIUM 8.9 mg/dL (8.5-10.3); CARBON DIOXIDE - CO2 28 mmol/L (21-32); CHLORIDE 99 mmol/L (101-111); CHOL/HDL RATIO 4.3 (<5.0); CHOLESTEROL 125 mg/dL; CREATININE 0.9 mg/dL (0.6-1.2); GFR - MDRD 82 (>89); GLUCOSE 101 mg/dL (70-100); HDL CHOLESTEROL 29 mg/dL; LDL CHOLESTEROL,CALCULATED 77 mg/dL; LDL/HDL RATIO 2.7 (<3.6); SODIUM 134 mmol/L (135-145); TOTAL PROTEIN 7.6 g/dL (6.7-8.2); VLDL CHOLESTEROL 19 mg/dL
== END 2018-05-05 08:18 | disposition home or self-care (01) ==
LOC: LAB 08:17
PROVIDERS: ATTEND Physician Assistant Medical
DX: E78.5 Hyperlipidemia, unspecified (principal)
CPT/HCPCS: 36415; 80053; 80061; 83721

== ENCOUNTER 2018-07-30 17:13 | Outpatient (CLI) | payer MEDICARE, OTHER ==
--- NOTE | 2018-07-30 18:31 | XRAY Report ---
Reason: PLEURAL EFFUSION Procedure Date: 07/30/2018 Accession Number: [id number] / [id number] Procedure: XR - Chest 2 View X-Ray CPT Code: 03868 FULL RESULT: EXAM: CHEST RADIOGRAPHY EXAM DATE: 07/30/2018 05:53 PM. CLINICAL HISTORY: PLEURAL EFFUSION. COMPARISON: CHEST 2 VIEW 07/30/2018 5:30 PM CHEST 2 VIEW 04/28/2018 9:35 AM. TECHNIQUE: 2 views. FINDINGS: Likely moderate sized left pleural effusion. No evidence of right-sided effusion. No pneumothorax. IMPRESSION: Likely moderate sized left pleural effusion. RADIA
--- NOTE | 2018-07-30 18:57 | XRAY Report ---
Reason: PLEURAL EFFUSION Procedure Date: 07/30/2018 Accession Number: [id number] / [id number] Procedure: XR - Chest 2 View X-Ray CPT Code: 15663 FULL RESULT: EXAM: CHEST RADIOGRAPHY EXAM DATE: 07/30/2018 05:53 PM. CLINICAL HISTORY: PLEURAL EFFUSION. COMPARISON: CHEST 2 VIEW 04/28/2018 9:35 AM CHEST 1 VIEW 04/14/2018 8:52 AM. TECHNIQUE: 2 views. FINDINGS: Lungs/Pleura: Lung volumes are within normal limits. There is increased opacity within the left lung base. Right lung is clear. No pneumothorax. Mediastinum: There is cardiomegaly. Left subclavian dual-lead pacemaker is in place. Patient has undergone median sternotomy for coronary artery bypass grafting. Other: None. IMPRESSION: 1. There is cardiomegaly. 2. There is left base opacity which likely represents moderate sized pleural effusion. Some element of concomitant airspace disease is not excluded. 3. There is no evidence of pneumothorax. RADIA
== END 2018-07-30 17:14 | disposition home or self-care (01) ==
LOC: DI 17:13
PROVIDERS: ATTEND Physician Assistant Medical
DX: J90 Pleural effusion, not elsewhere classified (principal); I51.7 Cardiomegaly
CPT/HCPCS: 71046; 71048

== ENCOUNTER 2018-10-18 14:53 | Outpatient (CLI) | payer MEDICARE, OTHER ==
--- NOTE | 2018-10-18 23:28 | Ultrasound Report ---
Reason: FOOT PAIN CHRONIC Procedure Date: 10/18/2018 Accession Number: [id number] / [id number] Procedure: US - Ankle Brachial Index CPT Code: FULL RESULT: EXAM: BILATERAL ANKLE/BRACHIAL INDEX EXAM DATE: 10/18/2018 03:45 PM. CLINICAL HISTORY: FOOT PAIN CHRONIC. COMPARISON: None. TECHNIQUE: A blood pressure cuff and pulse volume recording Doppler ultrasound was used to evaluate the arterial pressures in the arms and ankle. No images were acquired. FINDINGS: Brachial pressure: Right brachial artery: 119 mmHg, index 1.00 Left brachial artery: 114 mmHg, index 1.00 Right ankle pressures: 127 mmHg, index 1.1 Left ankle pressures: 114 mmHg, index 1.2 IMPRESSION: 1. Right ankle/brachial index: 1.1. 2. Left ankle/brachial index: 1.2. ANKLE/BRACHIAL INDEX REFERENCE STANDARDS 1.0-1.4: Normal 0.90-0.99: Borderline < 0.9: Abnormal RADIA
== END 2018-10-18 14:54 | disposition home or self-care (01) ==
LOC: DI 14:53
PROVIDERS: ATTEND Physician Assistant Medical
DX: M79.673 Pain in unspecified foot (principal); G89.29 Other chronic pain
CPT/HCPCS: 93922

== ENCOUNTER 2019-02-04 22:00 | Outpatient (CLI) | payer MEDICARE, OTHER | END 2019-02-04 23:59 | disposition home or self-care (01) | LOC: LAB.R 22:00 | PROVIDERS: ATTEND Internal Medicine Critical Care Medicine | DX: J47.1 Bronchiectasis with (acute) exacerbation (principal); R91.8 Other nonspecific abnormal finding of lung field | CPT/HCPCS: 81599; 87015; 87116; 87206 ==

== ENCOUNTER 2019-02-05 08:00 | Outpatient (CLI) | payer MEDICARE, OTHER | END 2019-02-05 23:59 | disposition home or self-care (01) | LOC: LAB.R 08:00 | PROVIDERS: ATTEND Internal Medicine Critical Care Medicine | DX: J47.1 Bronchiectasis with (acute) exacerbation (principal); R91.8 Other nonspecific abnormal finding of lung field | CPT/HCPCS: 81599; 87102; 87206 ==

== ENCOUNTER 2019-02-13 05:56 | Inpatient (IN) | payer MEDICARE, OTHER ==
[2019-02-13] MEDS ORDERED: IPRATROPIUM/ALBUTEROL 3 ML NEB INH STA (06:15)
[2019-02-13] MEDS ORDERED: methylPREDNISolone SUCCINATE 125 MG/2 ML VIAL IVP STA (06:15)
[2019-02-13 06:26] LABS: BASOPHILS % (AUTO) 0.3 %; EOSINOPHILS % (AUTO) 0.2 %; HGB - HEMOGLOBIN 12.4 g/dL (14.0-18.0); LYMPHOCYTES % (AUTO) 8.6 %; MEAN CORPUSCULAR HEMOGLOBIN 51.9 pg (27.0-31.0); MEAN CORPUSCULAR HGB CONC 35.2 g/dL (32.0-36.0); MEAN CORPUSCULAR VOLUME 147.3 fL (80.0-94.0); MEAN PLATELET VOLUME 10.8 fL (7.4-11.4); MONOCYTES # (AUTO) 0.7 10^3/uL (0.0-1.0); MONOCYTES % (AUTO) 6.3 %; NEUTROPHILS # (AUTO) 9.6 10^3/uL (1.5-6.6); NEUTROPHILS % (AUTO) 83.1 %; PLT - PLATELET COUNT 474 10^3/uL (130-450); RED BLOOD COUNT 2.39 10^6/uL (4.70-6.10); RED CELL DISTRIBUTION WIDTH 12.6 % (12.0-15.0); WHITE BLOOD COUNT 11.5 x10^3/uL (4.8-10.8)
[2019-02-13 06:31] LABS: INR 1.9 (0.8-1.2); PT - PROTHROMBIN TIME 20.8 secs (9.9-12.6)
--- NOTE | 2019-02-13 06:34 | ED Physician Documentation ---
PD HPI DYSPNEA - Stated complaint Stated Complaint: SOA - Chief complaint Chief Complaint: Resp - History obtained from History obtained from: Patient - History of Present Illness Timing - onset: How many days ago (2) Timing - onset during: Rest Timing - duration: Days (2) Timing - details: Gradual onset Pain level max: 0 Pain level now: 0 Inciting event(s): URI Improved by: O2, Rest Worsened by: Exertion, Coughing Associated symptoms: Fever (Subjective), Cough (Productive green/yellow), Wheezing. No: Palpitations Similar symptoms before: Diagnosis (COPD, myeloproliferative disorder, pneumonia) Recently seen: Not recently seen - Additional information Additional information: Patient does not use oxygen at home. Review of Systems Ten Systems: 10 systems reviewed and negative Constitutional: reports: Fever (Subjective) Ears: denies: Ear pain Nose: reports: Rhinorrhea / runny nose, Congestion Throat: denies: Sore throat Respiratory: reports: Dyspnea, Cough, Wheezing GI: denies: Abdominal Pain, Nausea, Vomiting, Diarrhea Skin: denies: Rash Musculoskeletal: denies: Neck pain, Back pain Neurologic: denies: Headache PD PAST MEDICAL HISTORY - Past Medical History Past Medical History: Yes Cardiovascular: High cholesterol, Coronary artery disease, Arrhythmia, Other Respiratory: Pneumonia, Shortness of breath, Other Neuro: None Endocrine/Autoimmune: None GI: Diverticulitis, Cholelithiasis CONTINUITY READER: None : Benign prostate hypertrophy HEENT: Chronic sinusitis, Chronic hearing loss Psych: None Musculoskeletal: Osteoarthritis Derm: Other - Past Surgical History Past Surgical History: Yes General: Appendectomy, Colonoscopy, Other Ortho: Knee replacement Cardiovascular: CABG, Coronary stent, Pacemaker HEENT: Tonsil/Adenoidectomy Derm: Skin cancer surgery - Present Medications Home Medications: Ambulatory Orders Medication Instructions Recorded Confirmed Lactobacillus Acidophilus 1 each PO DAILY 10/20/12 09/22/18 [Acidophilus] Nitroglycerin [Nitrostat] 0.4 mg SL Q5MIN PRN 02/16/13 09/22/18 Multivitamin [Theragran] 1 each PO DAILY 04/10/18 09/22/18 Hydroxyurea [Hydrea] 500 mg PO TID 04/21/18 09/22/18 Lasix. 1 tab ORAL DAILY 04/21/18 09/22/18 Metoprolol Succinate 50 mg PO DAILY 05/05/18 09/22/18 Doxycycline Hyclate 100 mg PO BID 09/22/18 09/22/18 - Allergies Allergies/Adverse Reactions: Allergies Allergy/AdvReac Type Severity Reaction Status Date / Time No Known Drug Allergies Allergy Verified 02/13/19 06:06 - Social History Does the pt smoke?: No Smoking Status: Never smoker Does the pt drink ETOH?: Yes Does the pt have substance abuse?: No - Immunizations Immunizations are current?: Yes - POLST Patient has POLST: No POLST Status: Full Code PD ED PE NORMAL - Vitals Vital signs reviewed: Yes - General General: Alert and oriented X 3, No acute distress, Well developed/nourished - HEENT HEENT: PERRL, Moist mucous membranes - Neck Neck: Supple, no meningeal sign - Cardiac Cardiac: RRR, Strong equal pulses - Respiratory Respiratory: No respiratory distress, Other (Diffuse wheezing and rhonchi bilaterally) - Abdomen Abdomen: Soft, Non tender, Non distended - Derm Derm: Warm and dry - Extremities Extremities: No calf tenderness / cord - Neuro Neuro: Alert and oriented X 3 - Psych Psych: Normal mood, Normal affect Results - Vitals Vitals: Vital Signs - 24 hr 02/13/19 02/13/19 02/13/19 06:01 06:09 06:37 Temperature 37.2 C Heart Rate 88 77 78 Respiratory 24 20 22 Rate Blood Pressure 147/65 H 147/65 H 128/56 L O2 Saturation 88 L 97 97 02/13/19 06:42 Temperature Heart Rate 78 Respiratory 33 H Rate Blood Pressure O2 Saturation Oxygen O2 Source Nasal cannula Oxygen Flow Rate 3 - EKG (time done) 0600 Rate: Rate (enter#) (89) Rhythm: NSR [place]: Normal Intervals: Normal [place] QRS: Normal Ischemia: Normal ST segments - Labs Labs: Laboratory Tests 02/13/19 02/13/19 02/13/19 06:05 06:05 06:05 WBC 11.5 H RBC 2.39 L Hgb 12.4 L Hct 35.2 L MCV 147.3 H MCH 51.9 H MCHC 35.2 RDW 12.6 Plt Count 474 H MPV 10.8 Neut # (Auto) 9.6 H Lymph # (Auto) 1.0 L [place] # (Auto) 0.7 Eos # (Auto) 0.0 Baso # (Auto) 0.0 Absolute Nucleated RBC 0.00 Nucleated RBC % 0.0 PT 20.8 H INR 1.9 H Sodium 137 Potassium 3.8 Chloride 100 L Carbon Dioxide 26 Anion Gap 11.0 BUN 17 Creatinine 0.9 Estimated GFR (MDRD) 82 L Glucose 107 H Calcium 8.8 Total Bilirubin 1.4 H AST 18 ALT 16 Alkaline Phosphatase 46 Total Protein 7.4 Albumin 4.0 Globulin 3.4 Albumin/Globulin Ratio 1.2 Lipase 29 - Rads (name of study) cxr Radiology: Prelim report reviewed, EMP read contemporaneously (Developing bilateral interstitial infiltrates with a greater airspace ), See rad report (Developing bilateral interstitial infiltrates with a greater airspace infiltration in the left lower lobe. ) PD MEDICAL DECISION MAKING - ED course Complexity details: reviewed results, re-evaluated patient, considered differential, d/w patient, d/w family ED course: 78-year-old male with known pulmonary disease. Feels better after nebulizer treatment and steroids. We will treat with IV antibiotics. Patient is hypoxic, 88% on room air upon arrival. He has leukocytosis. After nebulizer treatment still is a very short of breath with any movement and still requires supplemental O2. Lactate and blood cultures drawn. Discussed the case the hospitalist, Dr. Paiz who accepts. This document was made in part using voice recognition software. While efforts are made to proofread this document, sound alike and grammatical errors may occur. Departure - Departure Disposition: 66 [facility] DC/Xfer Clinical Impression: Myeloproliferative disorder Pneumonia Qualifiers: Pneumonia type: due to unspecified organism Laterality: bilateral Lung location: unspecified part of lung Qualified Code(s): J18.9 - Pneumonia, unspecified organism Condition: Stable
[2019-02-13 06:40] LABS: ALBUMIN/GLOBULIN RATIO 1.2 (1.0-2.2); BILIRUBIN,TOTAL 1.4 mg/dL (0.2-1.0); CALCIUM 8.8 mg/dL (8.5-10.3); CREATININE 0.9 mg/dL (0.6-1.2); TOTAL PROTEIN 7.4 g/dL (6.7-8.2)
--- NOTE | 2019-02-13 06:53 | XRAY Report ---
Reason: cough Procedure Date: 02/13/2019 Accession Number: [id number] / [id number] Procedure: XR - Chest 2 View X-Ray CPT Code: 62856 FULL RESULT: EXAM: CHEST RADIOGRAPHY EXAM DATE: 02/13/2019 06:36 AM. CLINICAL HISTORY: Cough. COMPARISON: CHEST 2 VIEW 07/30/2018 5:43 PM. TECHNIQUE: 2 views. FINDINGS: Lungs/Pleura: There is volume loss of the left lung. There are patchy interstitial bilateral infiltrates with the greater amount of airspace infiltration in the left lower lobe. There is a small left pleural effusion. Mediastinum: The heart is not enlarged. Other: None. IMPRESSION: 1. Developing bilateral interstitial infiltrates with a greater airspace infiltration in the left lower lobe. RADIA
[2019-02-13] MEDS ORDERED: oxyCODONE 5 MG TABLET PO PRN (07:25)
[2019-02-13] MEDS ORDERED: ACETAMINOPHEN 325 MG TABLET PO PRN (07:25)
[2019-02-13] MEDS ORDERED: SODIUM CHLORIDE FLUSH 0.9% 10 ML SYRINGE IVP PRN (07:25)
[2019-02-13] MEDS ORDERED: ONDANSETRON 4 MG/2 ML VIAL IVP PRN (07:25)
[2019-02-13] MEDS ORDERED: ONDANSETRON ODT 4 MG TABLET TL PRN (07:25)
[2019-02-13] MEDS ORDERED: ALBUTEROL NEB 2.5 MG/3 ML INH PRN (07:29)
[2019-02-13] MEDS ORDERED: cefTRIAXone 1 GM VIAL IVP STA (07:33)
[2019-02-13] MEDS ORDERED: AZITHROMYCIN INJ 500 MG in SODIUM CHLORIDE 0.9% 250 ML IV STA (07:33)
[2019-02-13] MEDS ORDERED: cefTRIAXone 2 GM in SODIUM CHLORIDE 0.9% MINIBAG 100 ML IV SCH (09:00)
[2019-02-13] MEDS ORDERED: AZITHROMYCIN INJ 500 MG in SODIUM CHLORIDE 0.9% 250 ML IV SCH (09:00)
[2019-02-13] MEDS: SODIUM CHLORIDE 0.9% 1,000 ML IV SCH ×2 (09:39→19:20)
[2019-02-13] MEDS: SODIUM CHLORIDE FLUSH 0.9% 10 ML SYRINGE IVP SCH ×2 (09:42→17:22)
[2019-02-13] MEDS: POLYETHYLENE GLYCOL 3350 17 GM PACKET PO SCH (09:43)
[2019-02-13 10:04] LABS: BILIRUBIN,URINE NEGATIVE (NEGATIVE); GLUCOSE, URINE (UA) NEGATIVE (NEGATIVE); KETONES,URINE (UA) 15 mg/dL (NEGATIVE); LEUKOCYTE ESTERASE, URINE NEGATIVE (NEGATIVE); NITRITE,URINE NEGATIVE (NEGATIVE); OCCULT BLOOD,URINE NEGATIVE (NEGATIVE); PROTEIN,URINE NEGATIVE (NEGATIVE); UROBILINOGEN,URINE 0.2 (NORMAL) E.U./dL (NORMAL)
[2019-02-13 10:08] LABS: CLARITY,URINE CLEAR (CLEAR)
--- NOTE | 2019-02-13 10:08 | HISTORY & PHYSICAL EXAMINATION ---
Chief Complaint - Chief Complaint Chief Complaint: shortness of breath History of Present Illness - Admitted From Admitted From:: Home/ER - History Obtained From Records Reviewed: [place] History obtained from: Patient, Dr. Ambriz, [facility] Exam Limitations: none - History of Present Illness HPI Comment/Other: 77 yo male pt with JAK2 positive, myeloproliferative neoplasm, CAD, CABG w/ 2 stents, chronic sinusitis, bronchitis/bronchiectasis, anemia from hydroxyurea treatment, squamous and basal cell carcinoma presents to the emergency department with sob. He had been travelling and got sick while there. called PCP office on 02/12 while he was away: "Spoke with spouse CHUCK who is crying on the phone, states her is flying in from [place] and has told her that he is soa with exertion, refuses to have wheelchair assistance in the airport. Sister in law is accompanying patient and has updated spouse. Patient has ongoing hx of exertional soa and has had recent pulmonary function test but unsure of results. Patient denies chest pain. Discussed patient needs to be evaluated for emergency oxygen, ie ER. States she will consider [facility] since she picks patient up tonight at [place]. Will call back if she wants to schedule follow up next week. " He has been seeing Pulmonology since 11/2018 for his recurrent pneumonias/bronchiectasis were severe enough to consider bronchial lavage. Last seen by them on 02/04/19 and he continued to have slowly progressive dyspnia, with 1/4 cup of cream colored sputum every day. POTTER and wheeze with minimal exertion but especially up stairs. On prednisone 10 mg daily. He was felt to have either indoletn infection in the setting of MDS or organizaing pneumonia (most likely). to continue prednisone 20 mg daily, a flu tter valve twice daily, sputum afb x 2, fungal x 1 For his history of bronchiectasis: Multiple episodes of bronchitis, copious phlegm. Pneumonia in March 2018 resulted in loculated left-sided effusion. Treated with chest tube. Persistent on CT chest 2018 but much improved. Splenomegaly and cholelithiasis unchanged. CT chest July 2018 with persistent dense left lower lobe/left basilar consolidation with adjacent loculated pleural effusion or empyema. Consolidation unchanged from June 10, 2018 but improved since April 17, 2018. Right lung clear. Chest CT biopsy of left lower lobe done August 2018 because left infiltrate did not clear and showed benign lung disease but patchy chronic inflammation and focal consolidation. AFB culture September 26, 2018, November 08, 2018 are negative. Fungal culture negative on October 22, 2018. Chest CT December 2018 slightly improved left basilar consolidation with volume loss. Residual bronchiectasis with bronchial thickening. Increased small airway and peripheral lung inflammation on right. Persistent fine reticular nodular infiltrate in both upper lung suggestive of hypersensitivity. Near resolution of left pleural effusion. Prominent main pulmonary artery suspicious for pulmonary arterial hypertension. Continued cholelithiasis and pr obable mild splenomegaly. Pulmonary function studies on January 2019 showed an FVC of 2.09 which is 48% of normal. FEV1 of 1.49 L which is 48% of normal. Ratio was 71%. DLC0 was 12.4 which is 49% of normal. With this episode he has had increasing shortness of breath for the last 2 days. Started with a cold with runny nose, sinus congestion, sore throat. Trying to do anything made him short of breath and increased his cough. He has had some subjective fever but he cannot, with the temperature was. The phlegm is changed from being cream-colored and runny to thick and green and yellow. He is not on home O2. He landed last night at [place]. Got there at midnight and his drove to pick him up. On the way home, they had to come over [place] because the ferry was done. She seriously thought about driving to [facility] because his refrigeration tech is there. But he was tired. He just said he needed to get some sleep. Did not want to go. "I am tired of doctors, tired of hospitals, tired of needles". He also feels that nothing is being done. He does not have a very good understanding of his disease and what it means. 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 In the emergency room he was seen by Dr. Menchaca. Temperature was 38.6. Pulse was 70. Blood pressure 99/60. Respiratory rate 38, and he was 3 L with 93% saturated. His chest x-ray shows bilateral infiltrates. His White cell count is 11.5. In August 2018 his white cell count was 5.6. Treatment in the ER consisted of steroids, nebulizers. Antibiotics were ordered just as he was being transferred to the floor and has received Rocephin and azithromycin. History - Past Medical History Cardiovascular: reports: High cholesterol, Coronary artery disease (06/30/13: Bare-metal stents X2 LAD. July 12, 2013: [facility] #1 complex single-vessel coronary artery disease. #2 mildly elevated left ventricular end-diastolic pressures. #3 FFR demonstrated physiologically significant lesions involving the mid LAD and major diagonal branch.), Arrhythmia (s/p pacer for bradycardia), Other (Echocardiogram July 19, 2013 shows normal left ventricular ejection fraction of 60%. No evidence of cardiac shunt. Mild MR, mild TR with normal PA pressures. Repeat echo February 25, 2014 with EF 70%. 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 On hydroxyurea since September 2008. He is currently on 2000 mg of hydroxyurea a day. Followed by Chip Glass MD - Past Surgical History General: reports: Appendectomy, Colonoscopy, Other Ortho: reports: Knee replacement Cardiovascular: reports: CABG, Coronary stent, Pacemaker HEENT: reports: Tonsil/Adenoidectomy Derm: reports: Skin cancer surgery - Family & Social History Family History: Mother: , Asthma, CAD, Father: , CVA/TIA, Brothe r: Living arrangement: At home Living Situation: With spouse/s.o. Social History Notes: 77 yo father of 2 boys lives with his . Retired [employer] in [address] the [facility] to [facility]. 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 Have sailed all around the world. Pt grew up with smoking parents, but did not smoke. He drinks 2 scotches per night. He denies any illicit drug use. - Substance History Use: Uses substance without health or social issues: Alcohol Abuse: Recurrent use of substance despite neg consequences: NONE Dependence: Experiences withdrawal or developed tolerances: NONE - POLST Patient has POLST: No POLST Status: DNR (please see adanced care plan conversation under separate note) Meds/Allgy - Home Medications Home Medications: Ambulatory Orders Medication Instructions Recorded Confirmed Nitroglycerin [Nitrostat] 0.4 mg SL Q5MIN PRN 02/16/13 09/22/18 Multivitamin [Theragran] 1 each PO DAILY 04/10/18 09/22/18 Apixaban [Eliquis] 5 mg PO BID 02/13/19 Clopidogrel Bisulfate [Clopidogrel] 75 mg PO DAILY 02/13/19 Fluticasone 110 Mcg [Flovent] 1 puffs INH BID 02/13/19 Hydroxyurea PO 02/13/19 Lisinopril 2.5 mg PO DAILY 02/13/19 Metoprolol Succinate [Toprol Xl] 50 mg PO DAILY 02/13/19 Rosuvastatin Calcium [Crestor] 20 mg PO DAILY 02/13/19 Tiotropium Redig [Spiriva 2 puffs INH DAILY 02/13/19 Respimat] predniSONE [Deltasone] 10 mg PO BID 02/13/19 - Allergies Allergies/Adverse Reactions: Allergies Allergy/AdvReac Type Severity Reaction Status Date / Time No Known Drug Allergies Allergy Verified 02/13/19 06:06 Review of Systems - Constitutional Constitutional: reports: Fatigue, Fever, Chills, Weakness, Poor appetite - Eyes Eyes: denies: Pain, Irritation, Amaurosis, Blurred vision - Ears, Nose & Throat Ears, Nose & Throat: reports: Hearing loss, Hearing aids, Nasal congestion, Postnasal drainage, Sore throat, Hoarseness. denies: Tinnitus, Vertigo - Cardiovascular Cariovascular: reports: Exertional dyspnea, Decr. exercise tolerance (it has been diminishing over the year but really bad over the last month) - Respiratory Respiratory: reports: Cough, Sputum production, SOB at rest, SOB with exertion, Pleuritic pain, Other (all these are chronic, daily and in the last month subtly worse and worse. not better with prednison, mucinex DM) - Gastrointestinal Gastrointestinal: denies: Abdominal pain, Abdominal distention, Constipation, Diarrhea, Black stools, Bloody stools - Genitourinary Genitourinary: reports: Frequency, Urgency, Nocturia. denies: Dysuria, Hematuria, Incontinence, Flank pain - Musculoskeletal Musculoskeletal: reports: Muscle weakness (generalized). denies: Muscle pain, Back pain, Muscle aches, Stiffness, Gout, Joint pain - Integumentary Integumentary: denies: Rash, Pruritis, Lesions, Dryness, Lumps, Acne, Pigment changes - Neurological Neurological: reports: General weakness. denies: Focal weakness, Headache, Dizziness, Numbness, Memory problems, Pre-existing deficit, Abnormal gait, Seizures, Incoordination, Slurred speech - Psychiatric Psychiatric: reports: Depression (really hates what his body has been doing this last 2 months, very depressing). denies: Anxiety, Suicidal, Delusions, Hallucinations, Homicidal - Endocrine Endocrine: reports: Intolerance to cold. denies: Polyuria, Polydypsia, Polyphagia - Hematologic/Lymphatic Hematologic/Lymphatic: reports: Anemia, Bruising. denies: Petechiae, Blood clots, Lymphadenopathy, Bleeding tendencies Prior Level of Functionality: He is still able to drive a car, do his activities of daily living. Even with his empyema treatment starting last fall to now he maintained ability of level of independence for himself. He is exhausted. Slowing down. Things are starting to get very hard to do. In spite of that he was able to go on a fishing trip to [place] with his sister last week. He is exhausted right now. Exam - Vital Signs Reviewed Vital Signs: Yes Vital Signs: Vital Signs x48h Temp Pulse Pulse Resp BP BP Pulse Ox 02/13/19 09:06 69 32 H 99/52 L 93 02/13/19 08:55 37.5 C 65 26 H 96/35 L 95 02/13/19 07:50 38.6 C H 70 38 H 99/60 93 02/13/19 06:42 78 33 H 02/13/19 06:37 78 22 128/56 L 97 02/13/19 06:09 77 20 147/65 H 97 02/13/19 06:01 37.2 C 88 24 147/65 H 88 L - Physical Exam General Appearance: positive: Alert, Mild distress (respiratory, with increased effort and rate to breath when he speaks for too long), Other (sitting up at bedside, eating lunch slowly, is there too. Diffuse baldness, looks exhaus rosalva, reddened pink areas on scalp, right amish) Eyes Bilateral: positive: PERRL, EOMI ENT: positive: Other (slightly edematous posterior pharynx and folds, no exudate, PND. rhinorrhea is present. conjunctiva pale and boggy. hoarse voice.) Neck: positive: No JVD, Lymphadenopathy (R) (shotty), Lymphadenopathy (L) (shotty). negative: Stiff neck, Carotid bruit Respiratory: positive: Chest non-tender, Wheezes, Rhonchi, Other (increased effort to breath) Cardiovascular: positive: Regular rate & rhythm. negative: Systolic murmur, Gallop/S4, Friction rub Peripheral Pulses: positive: 1+ Abdomen: positive: Non-tender, No organomegaly, Nml bowel sounds, No distention Skin: positive: Warm, Dry, Pallor Extremities: positive: Non-tender, Full ROM, No pedal edema Neurologic/Psychiatric: positive: Oriented x3, Motor nml, Weakness (just exhausted). negative: CN's nml (2-12) (very deaf but that's only deficit. make sure you speak slowly and loudly for him to read your lips and understand, even with hearing aid) Conclusion/Plan - Problem List (1) CAP (community acquired pneumonia) Conclusion/Plan: bilateral. This is in a gentleman who is immunocompromised with high doses of hydroxyurea to treat his myeloproliferative disorder. And unfortunately he has developed bronchiectasis. He is at risk for Pseudomonas. So far his cultures, upon review of the chart, do not show resistant strains. Plan [place] antibiotic guide still recommended Rocephin and azithromycin. Change to Levaquin if there is Pseudomonas risk. Obtain sputum culture to help guide me. Qualifiers: Laterality: left Lung location: lower lobe of lung Qualified Code(s): J18.1 - Lobar pneumonia, unspecified organism (2) Acute respiratory failure with hypoxia Conclusion/Plan: He and his are both alarmed at the fact that he needs oxygen. "He is never really needed oxygen before". I tried to reassure them that this is part of the treatment for pneumonia. He has a low DLCO seen in his previous pulmonary function studies. The current episode of pneumonia may have temporarily reduce his oxygen even further. I tried to reassure him that I hope that with tr eatment, good pulmonary hygiene, he may be able to go off oxygen and just stay on room air. But I also warned him that as his disease progresses, he may need to be on home oxygen. He states that 1 of the things that he never wants to do. Please refer to advanced care planning. Currently oxygen is taking care of by nasal cannula. If his respiratory failure worsens, he is amenable to going to the ICU for BiPAP. Just not intubation (3) Bronchiectasis with (acute) exacerbation Conclusion/Plan: Due to hx of pneumonia in a patient with chronic and prolonged immunosuppression. He does not have any sputum cultures in our system. All of the cultures I am seeing are E. coli or enterococcus in his urine. He does have fungal cultures that are negative and mycobacterial cultures that are negative. Today's preliminary culture shows many white cells, many gram-negative bacilli, and if you positive bacilli in pairs. Much of my time today was spent in educating him and his about bronchiectasis. What the disease means. It is waxing and waning course. How patients have constant daily phlegm. 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 Plan: With his acute exacerbation he is being treated as an acute pneumonia since that is evident on chest x-ray. I explained how bronchiectasis can lead to pneumonia. I am doing sputum cultures I was speak to respiratory therapy to see if we can maximize his respiratory hygiene. Currently has an Acapella valve at home but they just did not bring it in today. We will redo the Acapella valve while here, and consider doing a chest compression vest, or IPPB. (4) Myeloproliferative disorder Conclusion/Plan: Octavio 2+, with panmyelosis. On hydroxyurea 2000 mg a day since March 2018. To continue while here. (5) CAD (coronary artery disease) Conclusion/Plan: continue plavix, eliquis, metoprolol and prn NTG Qualifiers: Coronary Disease-Associated Artery/Lesion type: [place] artery - Lab Results Lab results reviewed: Yes Fish Bones: 02/13/19 06:05 02/13/19 06:05 - Diagnostic Imaging Results Diagnostic Imaging Results: positive: Final report reviewed Diagnostic Imaging Results Comments: CHEST RADIOGRAPHY EXAM DATE: 02/13/2019 06:36 AM. CLINICAL HISTORY: Cough. COMPARISON: CHEST 2 VIEW 07/30/2018 5:43 PM. TECHNIQUE: 2 views. FINDINGS: Lungs/Pleura: There is volume loss of the left lung. There are patchy interstitial bilateral infiltrates with the greater amount of airspace infiltration in the left lower lobe. There is a small left pleural effusion. Mediastinum: The heart is not enlarged. Other: None. IMPRESSION: 1. Developing bilateral interstitial infiltrates with a greater airspace infiltration in the left lower lobe. - EKG Results EKG Interpreted Independently: No Core Measures - Anticipated LOS I expect patient to be DC'd or transferred within 96 hours.: Yes - DVT/VTE - Prophylaxis VTE/DVT Device ordered at admit?: Yes
[2019-02-13] MEDS: IPRATROPIUM/ALBUTEROL 3 ML NEB INH SCH ×3 (10:36→19:57)
[2019-02-13] MEDS: methylPREDNISolone SUCCINATE 125 MG/2 ML VIAL IVP SCH ×2 (13:15→21:31)
--- NOTE | 2019-02-13 14:20 | ADVANCE CARE PLANNING NOTE ---
Advance Care Planning - Planning Encounter Date: 02/13/19 Time: 10:00 Purpose: to educated patient and about disease and answer their questions about expectations of treatment Parties in Attendance: , patient, and hospitalist Decisional Capacity of the Patient: intact, alert and oriented. he asks appropriate questions. Only interference is his deafness. You must speak loudly and slowly with his hearing aid in for him to hear and understand. - Diagnosis for Encounter (1) Bronchiectasis with (acute) exacerbation Summary: making the story we did not need to make patient developed pneumonia, empyema in the fall 2017. He is on 2000 mg of hydroxyurea for a myeloproliferative disorder. Initial treatment of hydroxyurea was in 2008. Subsequent complication of the pneumonia and empyema has been bronchiectasis with a constant daily cough, phlegm production, and a waxing and waning pulmonary endurance status. He is very frustrated, and tired of navigating the healthcare system - Encounter Subjective/Patient's Story: This marleny gentleman has been all the way around the world. 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 Sailed around the world with his . 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 When he got diagnosed with his myeloproliferative disorder he stopped working. Even with a diagnosis of his myeloproliferative disorder, previous history of coronary artery disease, he felt like he had a very active lifestyle. Pretty much do whatever he wanted to do, when he wanted to do it. He has a bucket list. He has been gradually completing that bucket list for the last 4 years. Last week was the last thing on his list to do. It was a fishing trip of a lifetime and he did it with his sister. But he hastens to add that he still has "things to do". He still wants to spend time with people in his life, a few odds and ends of visiting places. But he has been gradually tightening up all of his legal responsibilities. Making sure that paperwork is done, and that everyone, especially his , knows what he wants done with "things". He and his both state that things were actually stable. He was definitely slowing down, getting "older". But last fall, he developed a pneumonia with an empyema. He is never been the same since. He has had multiple CAT scans of the chest, a lung biopsy, a chest tube for the empyema. He has days where he feels better but not back to normal. And then he deteriorates. Constant daily coughing, constant cream-colored phlegm production. He has diminished exercise capacity so he cannot walk as far as he wants to. Laying down at night can be problematic and he prefers to sit up at times. He has been seen by pulmonology but they are exasperated. Their expectation is that there will be a "label" to his disease and then they can move forward with that diagnosis and its treatment. They feel that so far "everyone has been waffling". They receive less than stellar responses to their phone calls to the pulmonology office. I asked them what their understanding of his diseases. For instance, do they know that right now he is being treated as someone who has bronchiectasis? And that the bronchiectasis is from his previous pneumonia resulting in lung anatomy distortion plus his chronic immunosuppression with hydroxyurea. 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 And he understands that he at increased risk of infection from the hydroxyure and myeloproliferative disorder, but they do not understand the disease, it's course, its treatment, or prognosis. I explained to her that, from what she is describing as the treatment, all of the previous treatment and analysis/studies are appropriate. Once I explained that he has a chronic daily lung disease that will result in coughing, phlegm production, with exacerbations that need to be treated, AND there is maintenance therapy, that explanation in of itself made a big di fference in what they were expecting out of the pulmonology office. He states that he is tired of seeing doctors, getting needles poked into him, getting test done to him. But I asked him if that means he is ready to . When patients tell me that, I respect that statement and want to explore how far that statement goes. He tells me that while that statement is true, he really does not mean it to the extent that he does not want treatment. He did not come into the hospital last night because he was so tired and just wanted to go home. I carefully explained to him that if he does that in certain circumstances, an overwhelming lung infection could lead to sepsis, organ failure, respiratory failure and a needless, hurried, risky resuscitation. That explanation then led to a discussion of resuscitation status. While he wants everything done in the form of antibiotics, IV pressors, transferring to and from ICU or higher level of care, blood transfusions, possible surgeries, BiPAP, he does not want to be resuscitated if the expectation is that he will not be able to return to an independent life. When I asked him to describe what an independent life means to him, he does have preliminary thoughts about needing oxygen. He thought that if he were to need oxygen, return to home, he would not want to live. When I explained to him that oxygen can help him with his symptoms, and he could continue to live a life of travel, driving, he reconsiders. He then quantifies his quality of life by saying that he would never want to end up bedridden. If he can no longer get out of bed, he is pretty sure he wants us to let him go. However, this is a preliminary conversation for him. He had his have never really thought about this process and what it means to be disabled. Disability can mean many things to many people. Quality of life is defined by individual measures that he is never really thought about. Even though he has completed his bucket list, he realizes that he still has things he wants to do and is not ready to go yet. So far he has not needed anything beyond an occasional walker. He has not needed oxygen at home. He can still get up and go to the bathroom, dress himself, feed himself. He is exhausted, tired, and it takes much longer to do activities, but he can still accomplish them. They have not had any conversations about care. Who will take care of him if he is ill at home? Right now it is his . But they have never thought about what it would be like if he needed 16/12 care. Objective/Medical Story: 77 yo male pt with JAK2 positive, myeloproliferative neoplasm, CAD, CABG w/ 2 stents, chronic sinusitis, bronchitis/bronchiectasis, anemia from hydroxyurea treatment, squamous and basal cell carcinoma presents to the emergency department with sob. He had been travelling and got sick while there. called PCP office on 02/12 while he was away: "Spoke with spouse CHUCK who is cr lani on the phone, states her is flying in from [place] [employer] and has told her that he is soa with exertion, refuses to have wheelchair assistance in the airport. Sister in law is accompanying patient and has updated spouse. Patient has ongoing hx of exertional soa and has had recent pulmonary function test but unsure of results. Patient denies chest pain. Discussed patient needs to be evaluated for emergency oxygen, ie ER. States she will consider [facility] since she picks patient up tonight at [place]. Will call back if she wants to schedule follow up next week. " He has been seeing Pulmonology since 11/2018 for his recurrent pneumonias/bronchiectasis were severe enough to consider bronchial lavage. Last seen by them on 02/04/19 and he continued to have slowly progressive dyspnia, with 1/4 cup of cream colored sputum every day. POTTER and wheeze with minimal exertion but especially up stairs. On prednisone 10 mg daily. He was felt to have either indoletn infection in the setting of MDS or organizaing pneumonia (most likely). to continue prednisone 20 mg daily, a flutter valve twice daily, sputum afb x 2, fungal x 1 For his history of bronchiectasis: Multiple episodes of bronchitis, copious phlegm. Pneumonia in March 2018 resulted in loculated left-sided effusion. Treated with chest tube. Persistent on CT chest 2018 but much improved. Splenomegaly and cholelithiasis unchanged. CT chest July 2018 with persistent dense left lower lobe/left basilar consolidation with adjacent loculated pleural effusion or empyema. Consolidation unchanged from June 10, 2018 but improved since April 17, 2018. Right lung clear. Chest CT biopsy of left lower lobe done August 2018 because left infiltrate did not clear and showed benign lung disease but patchy chronic inflammation and focal consolidation. AFB culture September 26, 2018, November 08, 2018 are negative. Fungal culture negative on October 22, 2018. Chest CT December 2018 slightly improved left basilar consolidation with volume loss. Residual bronchiectasis with bronchial thickening. Increased small airway and peripheral lung inflammation on right. Persistent fine reticular nodular infiltrate in both upper lung suggestive of hypersensitivity. Near resolution of left pleural effusion. Prominent main pulmonary artery suspicious for pulmonary arterial hypertension. Continued cholelithiasis and probable mild splenomegaly. Pulmonary function studies on January 2019 showed an FVC of 2.09 which is 48% of normal. FEV1 of 1.49 L which is 48% of normal. Ratio was 71%. DLC0 was 12.4 which is 49% of normal. With this episode he has had increasing shortness of breath for the last 2 days. Started with a cold with runny nose, sinus congestion, sore throat. Trying to do anything made him short of breath and increased his cough. He has had some subjective fever but he cannot, with the temperature was. The phlegm is changed from being cream-colored and runny to thick and green and yellow. He is not on home O2. He landed last night at [facility]. Got there at midnight and his drove to pick him up. On the way home, they had to come over [place] because the ferry was [place]. She seriously thought about driving to [facility] because his spouter is there. But he was tired. He just said he needed to get some sleep. Did not want to go. "I am tired of doctors, tired of hospitals, tired of needles". He also feels that nothing is being done. He does not have a very good understanding of his disease and what it means. 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 In the emergency room he was seen by Dr. Menchaca. Temperature was 38.6. Pulse was 70. Blood pressure 99/60. Respiratory rate 38, and he was 3 L with 93% saturated. His chest x-ray shows bilateral infiltrates. His White cell count is 11.5. In August 2018 his white cell count was 5.6. Treatment in the ER consisted of steroids, nebulizers. Antibiotics were ordered just as he was being transferred to the floor and has received Rocephin and azithromycin. Goals of Care: 1. He is not ready to transition to end-of-life care 2. He would still like to remain independent enough to travel, accomplish a few more minor projects, and complete all legal responsibilities to his family and make it easier for them if he were to 3. To reduce his cough, shortness of breath, and improve his endurance 4. To understand his disease and why he his sick this way 5. To reduce the amount of time he has to spend in hospitals, doctor's offices. Plan: 1. I have used up to date as a mechanism of education. I have pulled recommendations from: -[facility]: Clinical practice guidline on effectiveness of nonpharmacologic airway clearance therapies in hospitalized patients -[employer]: Clinical practice guideline on effectiveness of phamacologic airway clearance therapies in hospitalized patients - Respiratory Society: Guidelines for the management of adult bronchiectasis -I have also pulled "the Basics". -I have also downloaded and printed handouts from [facility] in [place] on the description of bronchiectasis, causes of bronchiectasis, treatment of bronchiectasis, and prognosis. These have all been handed to the patient and his . 2. Follow-up with Pulmonology services in [place]. Now that they have educated themselves, be more proactive about specifically what they want to re quest and why. Up until now, the felt that getting a sputum culture was all she needed to ask for him. The sputum culture was then tell the spouter what to do. She and he have a better understanding now. 3. Consider cardiopulmonary rehab. 4. Consider improving pulmonary hygiene for the home such as a vibrating vest, Mucinex without DM, make sure he uses the Acapella valve religiously. 5. Continue ongoing conversations that define what quality of life is for for him. Share those definitions with his and family. Transition to palliative care when appropriate. 6. POLST 7. To immediately report a change in status to his doctor or doctor personnel scheduler and would include: change in color of sputum, a change in endurance, fever, chills, change in appetite, worsening cough, change in alertness with sleepiness and sedation. Code Status: Do Not Attempt Resuscitation Time spent on advance care plannin hour
[2019-02-14] MEDS: SODIUM CHLORIDE FLUSH 0.9% 10 ML SYRINGE IVP SCH ×3 (00:47→18:55)
[2019-02-14] MEDS: SODIUM CHLORIDE 0.9% 1,000 ML IV SCH ×2 (05:14→14:35)
[2019-02-14] MEDS: methylPREDNISolone SUCCINATE 125 MG/2 ML VIAL IVP SCH ×3 (05:16→22:08)
[2019-02-14 05:27] LABS: BASOPHILS % (AUTO) 0.2 %; HGB - HEMOGLOBIN 9.8 g/dL (14.0-18.0); LYMPHOCYTES # (AUTO) 0.3 10^3/uL (1.5-3.5); LYMPHOCYTES % (AUTO) 4.9 %; MEAN CORPUSCULAR HGB CONC 34.5 g/dL (32.0-36.0); MEAN CORPUSCULAR VOLUME 144.9 fL (80.0-94.0); MONOCYTES # (AUTO) 0.2 10^3/uL (0.0-1.0); MONOCYTES % (AUTO) 2.4 %; NEUTROPHILS % (AUTO) 91.6 %; PLT - PLATELET COUNT 342 10^3/uL (130-450); RED BLOOD COUNT 1.96 10^6/uL (4.70-6.10); RED CELL DISTRIBUTION WIDTH 11.9 % (12.0-15.0); WHITE BLOOD COUNT 6.6 x10^3/uL (4.8-10.8)
[2019-02-14 05:42] LABS: CALCIUM 8.3 mg/dL (8.5-10.3); CREATININE 0.6 mg/dL (0.6-1.2)
[2019-02-14] MEDS: IPRATROPIUM/ALBUTEROL 3 ML NEB INH SCH ×4 (07:32→20:14)
[2019-02-14] MEDS ORDERED: AZITHROMYCIN INJ 500 MG in SODIUM CHLORIDE 0.9% 250 ML IV SCH (09:00)
[2019-02-14] MEDS ORDERED: cefTRIAXone 2 GM in SODIUM CHLORIDE 0.9% MINIBAG 100 ML IV SCH (09:00)
[2019-02-14] MEDS: POLYETHYLENE GLYCOL 3350 17 GM PACKET PO SCH (09:19)
--- NOTE | 2019-02-14 15:36 | CT Report ---
Reason: chronic sinus and bronchiectasis Procedure Date: 02/14/2019 Accession Number: [id number] / [id number] Procedure: CT - Sinuses CPT Code: FULL RESULT: EXAM: CT SINUS EXAM DATE: 02/14/2019 02:02 PM. HISTORY: Chronic sinus and bronchiectasis. COMPARISONS: SINUSES 07/16/2014 9:50 AM. TECHNIQUE: Routine multi-axial CT imaging performed through the sinuses. Iodinated IV contrast: None. Reconstructions: Multiplanar reformats. In accordance with CT protocol optimization, one or more of the following dose reduction techniques were utilized for this exam: automated exposure control, adjustment of mA and/or KV based on patient size, or use of iterative reconstructive technique. FINDINGS: RIGHT Frontal: Normal. Ethmoid: Mild mucosal thickening, slightly increased. Maxillary: Moderate mucosal thickening, increased since the prior study. Sphenoid: Normal. Drainage Pathways: The frontal recess, ostiomeatal complex and sphenoethmoidal recess are patent and normal. LEFT Frontal: Mild mucosal thickening inferiorly, increased since the prior study Ethmoid: While mucosal thickening, slightly increased Maxillary: Moderate mucosal thickening, increased since the prior study. Sphenoid: Normal. Drainage Pathways: The frontal recess, ostiomeatal complex and sphenoethmoidal recess are patent and normal. Nasal Cavity: Rightward deviation of the bony nasal septum. Paradoxical left middle turbinate. In addition, there is a rom bullosa of the left middle turbinate which appears to be partially opacified, similar to prior study. Osseous Structures: Unremarkable. Orbits: Unremarkable. Other: Moderate degenerative changes involving the left TMJ IMPRESSION: 1. Moderate mucosal thickening of the maxillary sinuses bilaterally, increased since the prior study. Mild mucosal thickening involving the ethmoid air cells and left frontal sinus. The sphenoid sinuses are clear. 2. The drainage pathways bilaterally appear patent. 3. Rightward deviation of the bony nasal septum. 4. Paradoxical left middle turbinate. In addition, there is a rom bullosa of the left middle turbinate which appears to be partially opacified, similar to prior study. RADIA
--- NOTE | 2019-02-14 16:07 | PROVIDER PROGRESS NOTE ---
Subjective - Prog Note Date Prog Note Date: 02/14/19 Prog Note Time: 16:07 - Subjective Pt reports feeling: Improved Subjective: still gets gaspy with speaking but at rest feels so much better than yesterday. Cough is weak. still not bringing up what he feels in his chest. Using acapella He feels like there may be a link between his sinuses and his lungs after readying the articles on bronchiectasis. Current Medications - Current Medications Current Medications: Active Medications Acetaminophen (Tylenol) 650 mg PO Q4HR PRN PRN Reason: Pain 1 to 4 Last Admin: 02/13/19 16:12 Dose: 650 mg Albuterol () 2.5 mg INH Q4HR PRN PRN Reason: Wheezing Albuterol/Ipratropium (Duoneb) 3 ml INH RTQID [facility] Last Admin: 02/14/19 16:07 Dose: 3 ml Sodium Chloride (Normal Saline 0.9%) 1,000 mls @ 100 mls/hr IV .Q10H [facility] Last Admin: 02/14/19 14:35 Dose: 100 mls/hr Azithromycin 500 mg/ Sodium (Chloride) 250 mls @ 250 mls/hr IV DAILY [facility] Stop: 02/15/19 23:59 Last Infusion: 02/14/19 12:00 Dose: Infused Ceftriaxone Sodium 2 gm/ (Sodium Chloride) 100 mls @ 200 mls/hr IV DAILY [facility] Last Infusion: 02/14/19 10:42 Dose: Infused Methylprednisolone Sodium Succinate (Solu-Medrol (125mg Vial)) 125 mg IVP TID [facility] Last Admin: 02/14/19 13:45 Dose: 125 mg Ondansetron HCl (Zofran Inj) 4 mg IVP Q6HR PRN PRN Reason: Nausea / Vomiting Ondansetron HCl (Zofran Odt) 4 mg TL Q6HR PRN PRN Reason: Nausea / Vomiting Oxycodone HCl (Roxicodone) 5 mg PO Q4HR PRN PRN Reason: Pain 5 to 7 Polyethylene Glycol (Miralax) 17 gm PO DAILY [facility] Last Admin: 02/14/19 09:19 Dose: Not Given Sodium Chloride (Normal Saline Flush 0.9%) 10 ml IVP PRN PRN PRN Reason: NEEDED PER PROVIDER ORDERS Sodium Chloride (Normal Saline Flush 0.9%) 10 ml IVP 0100,0900,1700 MARIFER Last Admin: 02/14/19 15:08 Dose: Not Given Nitroglycerin [Nitrostat] 0.4 mg SL Q5MIN PRN 02/16/13 Multivitamin [Theragran] 1 each PO DAILY 04/10/18 Apixaban [Eliquis] 5 mg PO BID 02/13/19 Clopidogrel Bisulfate [Clopidogrel] 75 mg PO DAILY 02/13/19 Hydroxyurea 500 mg PO QID 02/13/19 Lisinopril 2.5 mg PO DAILY 02/13/19 Metoprolol Succinate [Toprol Xl] 50 mg PO DAILY 02/13/19 Rosuvastatin Calcium [Crestor] 20 mg PO DAILY 02/13/19 Tiotropium [place] [Spiriva Respimat] 2 puffs INH DAILY 02/13/19 predniSONE [Deltasone] 20 mg PO DAILY 02/13/19 Objective - Vital Signs/Intake & Output Reviewed Vital Signs: Yes Vital Signs: Vital Signs x48h Temp Pulse Resp Pulse Ox 02/14/19 12:25 36.3 C L 70 18 97 02/14/19 11:35 70 20 Intake & Output: Intake & Output 02/11/19 02/12/19 02/13/19 02/14/19 23:59 23:59 23:59 23:59 Intake Total 2468.333 3857 Output Total 2600 1125 Balance -737.268 8767 - Objective General Appearance: positive: No acute distress, Alert Eyes Bilateral: positive: PERRL, EOMI ENT: positive: Other (nasal tone of voice) Neck: positive: No JVD. negative: Stiff neck, Carotid bruit Respiratory: positive: Chest non-tender, No respiratory distress, Wheezes (right lung), Rhonchi (right lung), Other (left lung is too quiet) Cardiovascular: positive: Regular rate & rhythm, Systolic murmur. negative: Gallop/S4, Friction rub Abdomen: positive: Non-tender, No organomegaly, Nml bowel sounds, No distention Skin: positive: Warm, Dry Extremities: positive: Non-tender, No pedal edema Neurologic/Psychiatric: positive: Oriented x3, CN's nml (2-12), Motor nml - Lab Results Fish Bones: 02/14/19 04:55 02/14/19 04:55 Other Labs: Lab Results x24hrs 02/14/19 02/14/19 Range/Units 04:55 04:55 WBC 6.6 (4.8-10.8) x10^3/uL RBC 1.96 L (4.70-6.10) 10^6/uL Hgb 9.8 L (14.0-18.0) g/dL Hct 28.4 L (42.0-52.0) % MCV 144.9 H (80.0-94.0) fL MCH 50.0 H (27.0-31.0) pg MCHC 34.5 (32.0-36.0) g/dL RDW 11.9 L (12.0-15.0) % Plt Count 342 (130-450) 10^3/uL MPV 11.0 (7.4-11.4) fL Neut # (Auto) 6.0 (1.5-6.6) 10^3/uL Lymph # (Auto) 0.3 L (1.5-3.5) 10^3/uL Slope # (Auto) 0.2 (0.0-1.0) 10^3/uL Eos # (Auto) 0.0 (0.0-0.7) 10^3/uL Baso # (Auto) 0.0 (0.0-0.1) 10^3/uL Absolute Nucleated RBC 0.00 x10^3/uL Nucleated RBC % 0.0 /100WBC Sodium 140 (135-145) mmol/L Potassium 3.8 (3.5-5.0) mmol/L Chloride 108 (101-111) mmol/L Carbon Dioxide 23 (21-32) mmol/L Anion Gap 9.0 (6-13) BUN 16 (6-20) mg/dL Creatinine 0.6 (0.6-1.2) mg/dL Estimated GFR (MDRD) 131 (>89) Glucose 166 H (70-100) mg/dL Calcium 8.3 L (8.5-10.3) mg/dL ABX Reporting Has patient been on IV antibiotics over the past 48 hours?: Yes Assessment/Plan - Problem List (1) Bronchiectasis with (acute) exacerbation Impression: bilateral. This is in a gentleman who is immunocompromised with high doses of hydroxyurea to treat his myeloproliferative disorder. And unfortunately he has developed bronchiectasis. He is at risk for Pseudomonas. So far his cultures, upon review of the chart, do not show resistant strains. Plan Dulzura antibiotic guide still recommended Rocephin and azithromycin. Change to Levaquin if there is Pseudomonas risk. Todays sputum shows gram negative growth. Blood cultures negative. Change to Levaquin IV Qualifiers: Laterality: left Lung location: lower lobe of lung Qualified Code(s): J18.1 - Lobar pneumonia, unspecified organism (2) Acute respiratory failure with hypoxia Conclusion/Plan: He and his are both alarmed at the fact that he needs oxygen. "He is never really needed oxygen before". I tried to reassure them that this is part of the treatment for pneumonia. He has a low DLCO seen in his previous pulmonary function studies. The current episode of pneumonia may have temporarily reduce his oxygen even further. I tried to reassure him that I hope that with treatment, good pulmonary hygiene, he may be able to go off oxygen and just stay on room air. But I also warned him that as his disease progresses, he may need to be on home oxygen. He states that 1 of the things that he never wants to do. Please refer to advanced care planning. He is down to 1 liter by OR and is at 97% sat. Will check exercise desat test before dc to see if he needs at home. (3) Bronchiectasis with (acute) exacerbation Conclusion/Plan: Due to hx of pneumonia in a patient with chronic and prolonged immunosuppression. He does not have any sputum cultures in our system. All of the cultures I am seeing are E. coli or enterococcus in his urine. He does have fungal cultures that are negative and mycobacterial cultures that are negative. Today's preliminary culture shows many white cells, many gram-negative bacilli, and if you positive bacilli in pairs. Much of my time today was spent in educating him and his about bronchiectasis. What the disease means. It is waxing and waning course. How patients have constant daily phlegm. 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 Plan: With his acute exacerbation he is being treated as an acute pneumonia since that is evident on chest x-ray. I explained how bronchiectasis can lead to pneumonia. I am doing sputum cultures which show GN so will change abx. I was speak to respiratory therapy to see if we can maximize his respiratory hygiene. Currently has an Acapella valve at home but they just did not bring it in today. We will redo the Acapella valve while here, and consider doing a chest compression vest, or IPPB. Will order limited CT of sinuses. (4) Myeloproliferative disorder Conclusion/Plan: Octavio 2+, with panmyelosis. On hydroxyurea 2000 mg a day since March 2018. To continue while here. (5) CAD (coronary artery disease) Conclusion/Plan: continue plavix, eliquis, metoprolol and prn NTG Qualifiers: Coronary Disease-Associated Artery/Lesion type: soboba artery
[2019-02-14] MEDS ORDERED: levoFLOXacin 750 MG/150 ML 750 MG/150 ML BAG IV SCH (17:00)
[2019-02-14] MEDS ORDERED: IPRATROPIUM/ALBUTEROL 3 ML NEB INH SCH (19:00)
[2019-02-15] MEDS: SODIUM CHLORIDE 0.9% 1,000 ML IV SCH (02:38)
[2019-02-15] MEDS: SODIUM CHLORIDE FLUSH 0.9% 10 ML SYRINGE IVP SCH (05:15)
[2019-02-15 05:49] LABS: BASOPHILS % (AUTO) 0.1 %; HGB - HEMOGLOBIN 9.9 g/dL (14.0-18.0); LYMPHOCYTES % (AUTO) 3.2 %; MEAN CORPUSCULAR HGB CONC 34.1 g/dL (32.0-36.0); MEAN CORPUSCULAR VOLUME 146.5 fL (80.0-94.0); MEAN PLATELET VOLUME 11.3 fL (7.4-11.4); MONOCYTES % (AUTO) 2.3 %; NEUTROPHILS % (AUTO) 85.8 %; PLT - PLATELET COUNT 358 10^3/uL (130-450); RED BLOOD COUNT 1.98 10^6/uL (4.70-6.10); RED CELL DISTRIBUTION WIDTH 12.2 % (12.0-15.0); WHITE BLOOD COUNT 8.6 x10^3/uL (4.8-10.8)
[2019-02-15] MEDS: methylPREDNISolone SUCCINATE 125 MG/2 ML VIAL IVP SCH (05:57)
[2019-02-15 06:00] LABS: ABNORMAL LYMPHS % (MANUAL) 0 %; BAND NEUTROPHILS % (MANUAL) 0 %
[2019-02-15 06:01] LABS: CALCIUM 8.6 mg/dL (8.5-10.3); CREATININE 0.7 mg/dL (0.6-1.2)
[2019-02-15 06:24] LABS: LYMPHOCYTES # (MANUAL) 0.3 10^3/uL (1.5-3.5); LYMPHOCYTES % (MANUAL) 3 %; MONOCYTES # (MANUAL) 0.1 10^3/uL (0.0-1.0)
[2019-02-15 06:25] LABS: DIFFERENTIAL COMMENT MANUAL DIFFERENTIAL; PLATELET ESTIMATE, MANUAL NORMAL (130-450,000) (NORMAL); PLATELET MORPHOLOGY NORMAL APPEARANCE (NORMAL); RBC MORPHOLOGY (MULTIPLE) 2+ MACROCYTOSIS (NORMAL)
[2019-02-15] MEDS: IPRATROPIUM/ALBUTEROL 3 ML NEB INH SCH (07:37)
[2019-02-15 08:02] VITALS: BP 154/67
--- NOTE | 2019-02-15 08:14 | Discharge Plan ---
Discharge Plan Problem Reviewed?: Yes Disposition: Home, Self Care Condition: Stable Prescriptions: Levofloxacin [Levaquin] 750 mg PO DAILY #6 tablet Diet: Regular Activity Restrictions: Activity as Tolerated Shower Restrictions: No Driving Restrictions: No Instruction Topics: Levofloxacin tablets Health Concerns: You came to our emergency room after traveling for a fishing trip and had been coughing and short of breath. It started about a month ago but got worse on your trip and was severe enough that you needed oxygen on the plane home. You came to our hospital the next day and we found you to have bilateral pneumonia with worsening of your bronchiectasis. The culture that we grew your sputum is showing a gram-negative meche. That is a very general term for a bacteria and your doctor will need to review the culture when you see her next to make sure that your antibiotic therapy was correct. Treatment while here was oxygen, intravenous antibiotics, acapella valve, and intravenous steroids. We talked a lot about what bronchiectasis meant. There is a link between sinus infection and lung infections and we did a limited CT of the sinuses which showed you to have full maxillary sinuses. I also handed you articles to read. Plan of Treatment: 1. Complete Levaquin therapy to treat the gram-negative infection. But, again, please see your primary care doctor for follow-up (or your coil winder hand) to review sputum cultures. 2. Please see an ear nose and throat physician in follow-up for the bilaterally maxillary sinusitis seen on CT. 3. You do not need to be on oxygen. At discharge your saturation on the finger monitor was 95% on room air. Care Goals: 1. To continue educating yourself about the prognosis, treatment of bronchiectasis. 2. To reduce the amount of episodes that you have of coughing, phlegm production Assessment: Patient and have expressed understanding of treatment and goals No Smoking: If you smoke, Please STOP! Call for help. Follow-up with: Sunshine Gutierrez PA-C [Primary Care Provider] - Robbie Ordaz MD [Physician No Access] - Lonnie Nelson MD [Physician No Access] -
--- NOTE | 2019-02-15 11:41 | DISCHARGE SUMMARY ---
Discharge Summary Admit Date: 02/13/19 Discharge Date: 02/15/19 Discharging Provider: Autumn Paiz MD Primary Care Provider: CHANDRAKANT Sue Code Status: Attempt Resuscitation Condition at Discharge: Stable Discharge Disposition: 01 Home, Self Care - DIAGNOSES Discharge Diagnoses with Status of Each Condition: 1. Community-acquired pneumonia with gram-negative meche 2. Bronchiectasis with acute exacerbation 3. Acute respiratory failure with hypoxia 4. Myeloproliferative disorder 6. History of coronary artery disease 7. Sinusitis, chronic - HPI History of Present Illness: 77 yo male pt with JAK2 positive, myeloproliferative neoplasm, CAD, CABG w/ 2 stents, chronic sinusitis, bronchitis/bronchiectasis, anemia from hydroxyurea treatment, squamous and basal cell carcinoma [facility]. He had been travelling and got sick while there. called PCP office on 02/12 while he was away: "Spoke with spouse CHUCK who is crying on the phone, states her is flying in from [facility] and has told her that he is soa with exertion, refuses to have wheelchair assistance in the airport. Sister in law is accompanying patient and has updated spouse. Patient has ongoing hx of exertional soa and has had recent pulmonary function test but unsure of results. Patient denies chest pain. Discussed patient needs to be evaluated for emergency oxygen, ie ER. States she will consider [facility] [place]. Will call back if she wants to schedule follow up next week. " He has been seeing Pulmonology since 11/2018 for his recurrent pneumonias/bronchiectasis were severe enough to consider bronchial lavage. Last seen by them on 02/04/19 and he continued to have slowly progressive dyspnia, with 1/4 cup of cream colored sputum every day. POTTER and wheeze with minimal exertion but especially up stairs. On prednisone 10 mg daily. He was felt to have either indoletn infection in the setting of MDS or organizaing pneumonia (most likely). to continue prednisone 20 mg daily, a flutter valve twice daily, sputum afb x 2, fungal x 1 For his history of bronchiectasis: Multiple episodes of bronchitis, copious phlegm. Pneumonia in March 2018 resulted in loculated left-sided effusion. Treated with chest tube. Persistent on CT chest 2018 but much improved. Splenomegaly and cholelithiasis unchanged. CT chest July 2018 with persistent dense left lower lobe/left basilar consolidation with adjacent loculated pleural effusion or empyema. Consolidation unchanged from June 10, 2018 but improved since April 17, 2018. Right lung clear. Chest CT biopsy of left lower lobe done August 2018 because left infiltrate did not clear and showed benign lung disease but patchy chronic inflammation and focal consolidation. AFB culture September 26, 2018, November 08, 2018 are negative. Fungal culture negative on October 22, 2018. Chest CT December 2018 slightly improved left basilar consolidation with v olume loss. Residual bronchiectasis with bronchial thickening. Increased small airway and peripheral lung inflammation on right. Persistent fine reticular nodular infiltrate in both upper lung suggestive of hypersensitivity. Near resolution of left pleural effusion. Prominent main pulmonary artery suspicious for pulmonary arterial hypertension. Continued cholelithiasis and probable mild splenomegaly. Pulmonary function studies on January 2019 showed an FVC of 2.09 which is 48% of normal. FEV1 of 1.49 L which is 48% of normal. Ratio was 71%. DLC0 was 12.4 which is 49% of normal. With this episode he has had increasing shortness of breath for the last 2 days. Started with a cold with runny nose, sinus congestion, sore throat. Trying to do anything made him short of breath and increased his cough. He has had some subjective fever but he cannot, with the temperature was. The phlegm is changed from being cream-colored and runny to thick and green and yellow. He is not on home O2. He landed last night at [place]. Got there at midnight and his drove to pick him up. On the way home, they had to come over [place] because the ferry was done. She seriously thought about driving to [facility] because his senior sas developer is there. But he was tired. He just said he needed to get some sleep. Did not want to go. "I am tired of doctors, tired of hospitals, tired of needles". He also feels that nothing is being done. He does not have a very good understanding of his disease and what it means. 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 In the emergency room he was seen by Dr. Menchaca. Temperature was 38.6. Pulse was 70. Blood pressure 99/60. Respiratory rate 38, and he was 3 L with 93% saturated. His chest x-ray shows bilateral infiltrates. His White cell count is 11.5. In August 2018 his white cell count was 5.6. Treatment in the ER consisted of steroids, nebulizers. Antibiotics were ordered just as he was being transferred to the floor and has received Rocephin and azithromycin. - CONSULTS | PROCEDURES Procedures: 1. Chest x-ray with developing bilateral interstitial infiltrates with a greate r airspace infiltration in the left lower lobe when compared to July 30, 2018 chest x-ray. 2. Sinus CT with moderate mucosal thickening of the maxillary sinuses bilaterally, increased since the prior study of July 16, 2014. Mild mucosal thickening involving the ethmoid air cells and left frontal sinus. Sphenoid sinuses are clear. Drainage pathways bilaterally appear patent. Rightward dev iation of the bony nasal septum. Paradoxical left middle turbinate. 3. Sputum culture, pending identification and sensitivities, with gram-negative growth 4+. 4. Blood cultures negative at 4 days. 5. Advanced Care Planning - HOSPITAL COURSE Hospital Course: This marleny gentleman was admitted with a known complicated pulmonary history. My take home from review of his records is that he has developed bronchiectasis after pneumonia almost a year ago. The pneumonia resulted in empyema. Complicating this is a person who is on hydroxyurea for a myeloproliferative disorder. And he has sinusitis. He was initially started on Rocephin and azithromycin. [place] antibiotic guide was used as the baseline for recommended treatment. He did state that Levaquin could be used to be suspected Pseudomonas. At that time we did not. Before discharge she was identified as having been gram-negative growth that was 4+ in his sputum. As such she is been switched to Levaquin before discharge. He is to go home and 6 more days of Levaquin 750 mg a day. In addition he is to continue using his Acapella valve. Use Mucinex without DM to liquefy secretion s. Learn as much good pulmonary hygiene techniques as he can. His is a respiratory therapist is been retired. During his stay he had no further chest pain in his medications for coronary artery disease and although her other medical problems were continued. He asked if we could evaluate his sinuses since sinus infection always seem to be linked to his lung infection. He is recently been having a lot of postnasal drip, sinus pain, and drainage. CT of the sinuses showed moderate sinus filling. Much time was spent with advanced care planning as well as education of the patient. Also his . 5 articles were given to him on the evaluation, treatment and prognosis of bronchiectasis. At discharge he was no longer hypoxic. He was 95% on room air. Eating his meals. Slowly able to get up and walk to the bathroom for his daily ablations without significant dyspnea on exertion. He was still coughing up quite a bit of yellow-green phlegm but it was slowing down. Temperature is 36.4, pulse is 60, blood pressure 154/67. Respirations were 18. He has a nasal tone of voice, deviated nasal septum, areas on his scalp and face where you can see why he has been treated for skin cancer. Neck has shotty adenopathy. But supple. Lungs still have occasional rhonchi and wheezing on the right lung. Left lung is very quiet in comparison to right lung. Dull left base. But no tachypnea, no tachycardia and no use of accessory muscles. He is much more comfortable and alert today than he was on admission. The abdomen is benign. Extremities are warm without clubbing cyanosis or edema. Greater than 30 minutes was spent coordinating discharge. Initially his medications were sent to [facility]. But he requested I resend his Levaquin to the [facility] and that was done. I have asked him to follow-up with primary care provider, his senior sas developer at [facility], and follow-up with Dr. Robbie Ordaz about his sinusitis. He is asking to see someone for a second opinion about pulmonology treatment and diagnosis of bronchiectasis. I recommended [facility]. - ALLERGIES Allergies/Adverse Reactions: Allergies Allergy/AdvReac Type Severity Reaction Status Date / Time No Known Drug Allergies Allergy Verified 02/13/19 06:06 - MEDICATIONS Home Medications: Ambulatory Orders Medication Instructions Recorded Confirmed Nitroglycerin [Nitrostat] 0.4 mg SL Q5MIN PRN 02/16/13 02/13/19 Multivitamin [Theragran] 1 each PO DAILY 04/10/18 02/13/19 Apixaban [Eliquis] 5 mg PO BID 02/13/19 02/13/19 Clopidogrel Bisulfate [Clopidogrel] 75 mg PO DAILY 02/13/19 02/13/19 Hydroxyurea 500 mg PO QID 02/13/19 02/13/19 Lisinopril 2.5 mg PO DAILY 02/13/19 02/13/19 Metoprolol Succinate [Toprol Xl] 50 mg PO DAILY 02/13/19 02/13/19 Rosuvastatin Calcium [Crestor] 20 mg PO DAILY 02/13/19 02/13/19 Tiotropium [place] [Spiriva 2 puffs INH DAILY 02/13/19 02/13/19 Respimat] predniSONE [Deltasone] 20 mg PO DAILY 02/13/19 02/13/19 Levofloxacin [Levaquin] 750 mg PO DAILY #6 tablet 02/15/19 - LABS Result Diagrams: 02/15/19 05:08 02/15/19 05:08
== END 2019-02-15 09:06 | disposition home or self-care (01) | DRG 193 ==
LOC: ED 05:56 → MS2 07:25
PROVIDERS: ADMIT Specialist; ATTEND Specialist
DX: J18.1 Lobar pneumonia, unspecified organism (principal); J44.0 Chronic obstructive pulmonary disease with (acute) lower respiratory infection; R09.02 Hypoxemia; C94.6 Myelodysplastic disease, not elsewhere classified; J15.9 Unspecified bacterial pneumonia; J96.01 Acute respiratory failure with hypoxia; J47.0 Bronchiectasis with acute lower respiratory infection; J47.1 Bronchiectasis with (acute) exacerbation; C94.40 Acute panmyelosis with myelofibrosis not having achieved remission; J32.0 Chronic maxillary sinusitis; J34.2 Deviated nasal septum; I25.10 Atherosclerotic heart disease of native coronary artery without angina pectoris; H91.91 Unspecified hearing loss, right ear; E78.00 Pure hypercholesterolemia, unspecified; Z77.22 Contact with and (suspected) exposure to environmental tobacco smoke (acute) (chronic); Z66 Do not resuscitate; Z95.1 Presence of aortocoronary bypass graft; Z95.5 Presence of coronary angioplasty implant and graft; Z85.828 Personal history of other malignant neoplasm of skin; Z79.52 Long term (current) use of systemic steroids; Z79.899 Other long term (current) drug therapy; Z79.01 Long term (current) use of anticoagulants; Z95.0 Presence of cardiac pacemaker; Z85.820 Personal history of malignant melanoma of skin; Z92.3 Personal history of irradiation; Z79.51 Long term (current) use of inhaled steroids
CPT/HCPCS: 36415; 70486; 71046; 80048; 80053; 81003; 83605; 83690; 85025; 85610; 87040; 87070; 87077; 87205; 93005; 94640; 94664; 96374; 99285; A9270; 81001; 87086

== ENCOUNTER 2019-04-27 07:18 | Outpatient (CLI) | payer MEDICARE, OTHER ==
[2019-04-27 13:46] LABS: ALBUMIN 4.3 g/dL (3.2-5.5); ALBUMIN/GLOBULIN RATIO 1.7 (1.0-2.2); ALKALINE PHOSPHATASE 57 IU/L (42-121); ALT ALANINE AMINOTRANSFERASE 25 IU/L (10-60); AST ASPARTATE AMINOTRANSFERASE 17 IU/L (10-42); BILIRUBIN,TOTAL 0.8 mg/dL (0.2-1.0); BUN - BLOOD UREA NITROGEN 19 mg/dL (6-20); CALCIUM 8.7 mg/dL (8.5-10.3); CARBON DIOXIDE - CO2 26 mmol/L (21-32); CHLORIDE 103 mmol/L (101-111); CHOL/HDL RATIO 4.3 (<5.0); CHOLESTEROL 121 mg/dL; GFR - MDRD 73 (>89); GLUCOSE 87 mg/dL (70-100); HDL CHOLESTEROL 28 mg/dL; LDL CHOLESTEROL,CALCULATED 68 mg/dL; LDL/HDL RATIO 2.4 (<3.6); SODIUM 136 mmol/L (135-145); TOTAL PROTEIN 6.8 g/dL (6.7-8.2); VLDL CHOLESTEROL 25 mg/dL
== END 2019-04-27 23:59 | disposition home or self-care (01) ==
LOC: LAB.WCP 07:18
PROVIDERS: ATTEND Physician Assistant Medical
DX: E78.5 Hyperlipidemia, unspecified (principal)
CPT/HCPCS: 36415; 80053; 80061; 83721

== ENCOUNTER 2019-05-03 13:33 | Outpatient (CLI) | payer MEDICARE, OTHER ==
--- NOTE | 2019-05-04 09:59 | XRAY Report ---
Reason: pneumonia; hx of scarring LLL Procedure Date: 05/03/2019 Accession Number: [id number] / [id number] Procedure: XRN - Chest 2 View X-Ray CPT Code: 42455 Final Report FULL RESULT: EXAM: CHEST RADIOGRAPHY EXAM DATE: 05/03/2019 02:14 PM. CLINICAL HISTORY: Pneumonia; history of scarring left lower lobe. COMPARISON: CHEST 2 VIEW 02/13/2019 6:20 AM CHEST 2 VIEW 07/30/2018 5:43 PM CHEST 2 VIEW 07/30/2018 5:30 PM ABDOMEN/PELVIS W/ 04/10/2018 8:11 AM CHEST 04/13/2018 12:13 PM. TECHNIQUE: 2 views. FINDINGS: Lungs/Pleura: There is a persistent left basilar opacity. There are chronic interstitial markings. No pneumothorax or pleural effusion is evident. Mediastinum: The cardiac and mediastinal silhouettes appear grossly stable. There is a left chest wall cardiac pulse generator device. Other: Sternal wires are present. IMPRESSION: There is a persistent left lower lobe lung opacity. Chest CT is recommended for further characterization. RADIA
== END 2019-05-03 13:34 | disposition home or self-care (01) ==
LOC: DI.N 13:33
PROVIDERS: ATTEND Internal Medicine Critical Care Medicine
DX: R91.8 Other nonspecific abnormal finding of lung field (principal)
CPT/HCPCS: 71046

== ENCOUNTER 2019-05-04 13:50 | Outpatient (CLI) | payer MEDICARE, OTHER | END 2019-05-04 23:59 | disposition home or self-care (01) | LOC: LAB.WCP 13:50 | PROVIDERS: ATTEND Physician Assistant Medical | DX: J90 Pleural effusion, not elsewhere classified (principal) | CPT/HCPCS: 87070; 87205 ==

== ENCOUNTER 2019-05-24 15:27 | Outpatient (CLI) | payer MEDICARE, OTHER ==
--- NOTE | 2019-05-24 16:55 | CT Report ---
Reason: PNEUMONIA Procedure Date: 05/24/2019 Accession Number: [id number] / [id number] Procedure: CT - CHEST WO CPT Code: Final Report FULL RESULT: EXAM: CT CHEST EXAM DATE: 05/24/2019 03:52 PM. CLINICAL HISTORY: Pneumonia. COMPARISONS: CHEST 2 VIEW 05/03/2019 2:20 PM CHEST W/ 04/10/2018 8:11 AM. TECHNIQUE: Routine helical CT imaging was performed through the chest. IV contrast: None. Reconstructions: Coronal and sagittal. In accordance with CT protocol optimization, one or more of the following dose reduction techniques were utilized for this exam: automated exposure control, adjustment of mA and/or KV based on patient size, or use of iterative reconstructive technique. FINDINGS: Lungs/Pleura: 1. Mild to moderate bronchiectasis with patchy peribronchovascular nodular opacities in the mid-lower portion of the left lower lobe, lingula and the lateral basal right lower lobe visualized. 2. There is a focal subpleural reticulonodular thickening in the lateral portion of the left upper lobe, 6 x 15 mm in short dimension, image 4/152. 3. Mild bronchial thickening in the remainder of the left upper lobe and diffusing the right lung visualized, new or significant worsening since last exam. 4. No pericardial or pleural effusion. No pneumothorax. Mediastinum: No adenopathy or masses. Coronary artery calcification and status post CABG and left subclavian pacemaker again noted. There has been interval decrease in mild cardiomegaly. The thoracic aorta is within normal limits. Bones: The sclerotic nodule in the left posterior T4 again noted, similar to the prior exam. Visualized Abdomen: Splenomegaly, measures 17.5 cm, similar to the prior exam. No hepatic mass or labral contrast changes visualized. There are multiple small Gallbladder stones without gallbladder wall thickening. Other: None. IMPRESSION: 1. Mild to moderate bronchiectasis with patchy peribronchovascular nodular opacities in the mid-lower portion of the left lower lobe , lingula and lateral basal right lower lobe, compatible with pneumonia. Negative for cavitary process or pleural effusion. 2. New or worsening mild bronchiectasis in the left upper lobe and right lung. 3. A focal subpleural reticulonodular thickening in the lateral portion of the left upper lobe, 6 x 15 mm in short dimension, likely new focal inflammatory process versus neoplasm, recommend chest CT follow-up in 6 months. 4. Coronary artery disease, status post CABG and interval decrease in mild cardiomegaly. 5. No significant interval change of the moderate-sized splenomegaly without discrete cirrhosis or adenopathy, uncertain etiology. RADIA
== END 2019-05-24 15:28 | disposition home or self-care (01) ==
LOC: DI 15:27
PROVIDERS: ATTEND Family Medicine
DX: J18.9 Pneumonia, unspecified organism (principal); J47.0 Bronchiectasis with acute lower respiratory infection; I25.10 Atherosclerotic heart disease of native coronary artery without angina pectoris; I51.7 Cardiomegaly; Z95.1 Presence of aortocoronary bypass graft; R16.1 Splenomegaly, not elsewhere classified
CPT/HCPCS: 71250

== ENCOUNTER 2019-07-02 15:20 | Outpatient (CLI) | payer MEDICARE, OTHER ==
--- NOTE | 2019-07-04 00:39 | Ultrasound Report ---
Reason: ARTHEROSCLEROSIS OF CORONARY ARTERY Procedure Date: 07/02/2019 Accession Number: [id number] / [id number] Procedure: US - Duplex Lwr Ext Arterial Bilat CPT Code: Final Report FULL RESULT: EXAM: Bilateral Lower Extremity Arterial Doppler Ultrasound EXAM DATE: 07/02/2019 04:10 PM. CLINICAL HISTORY: Atherosclerosis of coronary artery. COMPARISON: None. TECHNIQUE: Real-time sonographic vascular imaging was performed by the cooker meal, utilizing color-flow, Doppler flow, and spectral analysis. Multiple apprenticeship training representative static images were saved for review. FINDINGS: No elevated velocities that would identify a focal hemodynamically significant stenosis in either leg. Diffuse areas of calcified plaque are seen. More prominent decrease in velocities from the distal superficial femoral artery to the popliteal artery. Right Lower Extremity: MULTI OPERATION FORMING MACHINE SETTER: PSV 130 cm/sec. Triphasic waveform. PSFA: PSV 94 cm/sec. Triphasic waveform. MSFA: PSV 97 cm/sec. Triphasic waveform. DSFA: PSV 80 cm/sec. Biphasic waveform. PFA: PSV 64 cm/sec. Triphasic waveform. POP: PSV 53 cm/sec. Biphasic waveform. BÁRBARA: PSV 49 cm/sec. Biphasic waveform. PSYCHOLOGY FELLOW: PSV 33 cm/sec. Biphasic waveform. JUAN ALBERTO: PSV 55 cm/sec. Biphasic waveform. DPA: PSV 6.6 cm/sec. Monophasic waveform. Left Lower Extremity: MULTI OPERATION FORMING MACHINE SETTER: PSV 118 cm/sec. Triphasic waveform. PSFA: PSV 72 cm/sec. Biphasic waveform. MSFA: PSV 87 cm/sec. Biphasic waveform. DSFA: PSV 100 cm/sec. Triphasic waveform. PFA: PSV 106 cm/sec. Biphasic waveform. POP: PSV 41 cm/sec. Biphasic waveform. BÁRBARA: PSV 40 cm/sec. Monophasic waveform. PSYCHOLOGY FELLOW: PSV 45 cm/sec. Biphasic waveform. JUAN ALBERTO: PSV 57 cm/sec. Biphasic waveform. DPA: PSV 10 cm/sec. Biphasic waveform. IMPRESSION: Suspect mild to moderate disease in the bilateral distal superficial femoral artery/popliteal artery junction based on decreasing velocities. Trifurcation arteries are patent bilaterally, with diffuse calcified plaque seen. No evidence of hemodynamically significant stenoses or occlusions. RADIA
== END 2019-07-02 15:21 | disposition home or self-care (01) ==
LOC: DI 15:20
PROVIDERS: ATTEND Internal Medicine Cardiovascular Disease
DX: I25.10 Atherosclerotic heart disease of native coronary artery without angina pectoris (principal)
CPT/HCPCS: 93925

== ENCOUNTER 2019-08-02 09:47 | Outpatient (CLI) | payer MEDICARE, OTHER ==
--- NOTE | 2019-08-03 08:25 | XRAY Report ---
Reason: LEFT 5TH TOE PAIN Procedure Date: 08/02/2019 Accession Number: [id number] / [id number] Procedure: WCP - Toe(s) LT CPT Code: Final Report FULL RESULT: EXAM: LEFT FIFTH TOE RADIOGRAPHY EXAM DATE: 08/02/2019 09:47 AM. CLINICAL HISTORY: LEFT 5TH TOE PAIN. No known injury. COMPARISON: None. TECHNIQUE: 3 views. Toes are partially flexed. FINDINGS: Bones: Normal. No fracture or bone lesion. Joints: Narrowing of left great toe interphalangeal joint. Minimal narrowing of first metatarsal-phalangeal joint. Soft Tissues: Normal. No soft tissue swelling. IMPRESSION: 1. No fracture or osseous lesion demonstrated. 2. Mild degenerative changes. RADIA
== END 2019-08-02 23:59 | disposition home or self-care (01) ==
LOC: DI.WCP 09:47
PROVIDERS: ATTEND Physician Assistant Medical
DX: M19.072 Primary osteoarthritis, left ankle and foot (principal)
CPT/HCPCS: 73660

== ENCOUNTER 2019-10-12 09:17 | Outpatient (CLI) | payer MEDICARE, OTHER ==
[2019-10-12 10:31] LABS: CALCIUM 8.8 mg/dL (8.5-10.3); CREATININE 0.8 mg/dL (0.6-1.2)
== END 2019-10-12 09:18 | disposition home or self-care (01) ==
LOC: DI 09:17
PROVIDERS: ATTEND Internal Medicine Cardiovascular Disease
DX: I25.10 Atherosclerotic heart disease of native coronary artery without angina pectoris (principal); R06.02 Shortness of breath; I08.0 Rheumatic disorders of both mitral and aortic valves
CPT/HCPCS: 36415; 80048; 93306

== ENCOUNTER 2019-10-14 08:00 | Outpatient (CLI) | payer MEDICARE, OTHER ==
--- NOTE | 2019-10-15 00:43 | XRAY Report ---
Reason: CHRONIC FOOT PAIN Procedure Date: 10/14/2019 Accession Number: [id number] / [id number] Procedure: WCP - Foot 3 View BILAT CPT Code: Final Report FULL RESULT: EXAM: BILATERAL FOOT RADIOGRAPHY EXAM DATE: 10/14/2019 01:58 PM. CLINICAL HISTORY: CHRONIC FOOT PAIN. COMPARISON: None. TECHNIQUE: 3 views. FINDINGS: Bones: Normal. No fractures or bone lesions. There are enthesophytes on the calcaneus bilaterally at the attachment of the plantar aponeurosis. Joints: Normal. No subluxations. Soft Tissues: Atherosclerotic vascular calcifications. IMPRESSION: 1. No definite findings to explain clinical symptoms. 2. Atherosclerotic vascular calcifications. RADIA
== END 2019-10-14 23:59 | disposition home or self-care (01) ==
LOC: DI.WCP 08:00
PROVIDERS: ATTEND Physician Assistant Medical
DX: M79.672 Pain in left foot (principal); M79.671 Pain in right foot; G89.29 Other chronic pain

== ENCOUNTER 2019-10-29 08:00 | Outpatient (CLI) | payer MEDICARE, OTHER ==
[2019-10-29 18:42] LABS: BASOPHILS # (AUTO) 0.1 10^3/uL (0.0-0.1); BASOPHILS % (AUTO) 1.6 %; EOSINOPHILS # (AUTO) 0.1 10^3/uL (0.0-0.7); EOSINOPHILS % (AUTO) 2.2 %; HGB - HEMOGLOBIN 12.9 g/dL (14.0-18.0); LYMPHOCYTES # (AUTO) 0.9 10^3/uL (1.5-3.5); MEAN CORPUSCULAR HEMOGLOBIN 48.1 pg (27.0-31.0); MEAN CORPUSCULAR HGB CONC 34.2 g/dL (32.0-36.0); MEAN CORPUSCULAR VOLUME 140.7 fL (80.0-94.0); MEAN PLATELET VOLUME 11.1 fL (7.4-11.4); MONOCYTES # (AUTO) 0.3 10^3/uL (0.0-1.0); MONOCYTES % (AUTO) 5.1 %; NEUTROPHILS % (AUTO) 73.2 %; PLT - PLATELET COUNT 403 10^3/uL (130-450); RED BLOOD COUNT 2.68 10^6/uL (4.70-6.10); RED CELL DISTRIBUTION WIDTH 13.2 % (12.0-15.0); WHITE BLOOD COUNT 5.5 x10^3/uL (4.8-10.8)
[2019-10-29 19:05] LABS: CRP - C-REACTIVE PROTEIN < 1.0 mg/dL (0-1.0); URIC ACID 5.9 mg/dL (2.6-7.2)
[2019-10-29 19:31] LABS: PLATELET ESTIMATE, MANUAL NORMAL (130-450,000) (NORMAL); PLATELET MORPHOLOGY NORMAL APPEARANCE (NORMAL)
== END 2019-10-29 08:01 | disposition home or self-care (01) ==
LOC: LAB.WCP 08:00
PROVIDERS: ATTEND Family Medicine
DX: L03.90 Cellulitis, unspecified (principal); M79.673 Pain in unspecified foot; G89.29 Other chronic pain
CPT/HCPCS: 36415; 84550; 85025; 86140

== ENCOUNTER 2019-11-10 07:00 | Outpatient (CLI) | payer MEDICARE, OTHER | END 2019-11-10 23:59 | disposition home or self-care (01) | LOC: LAB.R 07:00 | PROVIDERS: ATTEND Nurse Practitioner Family | DX: L08.9 Local infection of the skin and subcutaneous tissue, unspecified (principal) | CPT/HCPCS: 81599; 87070; 87075; 87205 ==

== ENCOUNTER 2020-01-08 07:22 | Outpatient (CLI) | payer MEDICARE, OTHER ==
--- NOTE | 2020-01-08 13:59 | Ultrasound Report ---
PROCEDURE: Duplex Lwr Ext Arterial Bilat INDICATIONS: PERIPHERAL VASCULAR DISEASE TECHNIQUE: Color and pulse Doppler interrogation was performed of both lower extremity arterial systems, with im age documentation. COMPARISON: 07/02/2019 Correlation is made with the accompanying ankle brachial index. FINDINGS: Right lower extremity: Common femoral artery: 125 cm/sec, with triphasic flow. Deep femoral artery: 94 cm/sec, with triphasic flow. Proximal superficial femoral artery: 104 cm/sec, with triphasic flow. Mid superficial femoral artery: 108 cm/sec, with triphasic flow. Distal superficial femoral artery: 114 cm/sec, with triphasic flow. Popliteal artery: 61 cm/sec, with monophasic flow. Posterior tibial artery: 128 cm/sec, with monophasic flow. Anterior tibial artery/dorsalis pedis: 65 cm/sec, with monophasic flow. Mayo-scale imaging description: Atherosclerotic change is seen, particularly involving the right pop liteal region. Left lower extremity: Common femoral artery: 103 cm/sec, with triphasic flow. Deep femoral artery: 84 cm/sec, with triphasic flow. Proximal superficial femoral artery: 122 cm/sec, with triphasic flow. Mid superficial femoral artery: 101 cm/sec, with triphasic flow. Distal superficial femoral artery: 87 cm/sec, with triphasic flow. Popliteal artery: 72 cm/sec, with triphasic flow. Posterior tibial artery: 184 cm/sec, with monophasic flow. Anterior tibial artery/dorsalis pedis: 132 cm/sec, with monophasic flow. Mayo-scale imaging description: Atherosclerotic changes are seen. IMPRESSION: By velocity criteria, there is greater than 50% stenosis within the left posterior tibial artery. Monophasic waveforms are seen distally, which is consistent with distal peripheral vascular disease. Reviewed by: Cosmo Cruz MD on 01/08/2020 12:58 PM [email or web address] Approved by: Cosmo Cruz MD on 01/08/2020 12:58 PM AKDT Station ID: [id number]
--- NOTE | 2020-01-08 14:07 | Ultrasound Report ---
PROCEDURE: Ankle Brachial Index INDICATIONS: PERIPHERAL VASCULAR TECHNIQUE: Ankle-brachial indices were obtained bilaterally and recorded. COMPARISONS: Correlation is made with the accompanying lower extremity duplex ultrasound, 01/08/2020. FINDINGS: Right ankle brachial index (BRII): 1.1 Left ankle brachial index (BRII): 1.1 Healing potential: Ankle pressures >55 mm Hg in non-diabetics and >80 mm Hg in diabetics are likely to achieve primary h ealing of ischemic foot ulcers. Toe pressures >30 mm Hg are likely to achieve primary healing of ischemic foot ulcers, toe or transme tatarsal amputations. IMPRESSION: Bilateral ankle brachial index measurements are within normal limits. Reviewed by: Cosmo Cruz MD on 01/08/2020 1:06 PM MILEY Approved by: Cosmo Cruz MD on 01/08/2020 1:06 PM MILEY Station ID: [id number]
== END 2020-01-08 07:23 | disposition home or self-care (01) ==
LOC: DI 07:22
PROVIDERS: ATTEND Nurse Practitioner Family
DX: I73.9 Peripheral vascular disease, unspecified (principal)
CPT/HCPCS: 93922; 93925

== ENCOUNTER 2020-04-25 16:01 | Outpatient (CLI) | payer MEDICARE, OTHER ==
--- NOTE | 2020-04-25 16:03 | XRAY Report ---
PROCEDURE: Chest 2 View X-Ray INDICATIONS: BRONCHIECTASIS WITH ACUTE EXACERBATION TECHNIQUE: 2 view(s) of the chest. COMPARISON: Chest x-ray 05/03/2019 FINDINGS: Surgical changes and devices: Pacemaker and sternal wires are present. Lungs and pleura: No pleural effusions or pneumothorax. There is a mild appearance of patchy bibasil ar opacities. Mediastinum: Mediastinal contours are normal. Heart size is enlarged. Bones and chest wall: No suspicious bony abnormalities. Soft tissues appear unremarkable. IMPRESSION: Mild appearance of patchy bibasilar opacities. While this could represent areas of depen dent change, appearance is concerning for development of infectious etiology such as pneumonia. Recom mend short interval imaging follow-up to document resolution after appropriate therapy. Reviewed by: Maria Luisa Thakkar MD on 04/25/2020 4:02 PM PST Approved by: Maria Luisa Thakkar MD on 04/25/2020 4:02 PM PST Station ID: [id number]
== END 2020-04-25 23:59 | disposition home or self-care (01) ==
LOC: DI.N 16:01
PROVIDERS: ATTEND Family Medicine
DX: J47.1 Bronchiectasis with (acute) exacerbation (principal)

== ENCOUNTER 2020-05-23 10:18 | Outpatient (CLI) | payer MEDICARE, OTHER | END 2020-05-23 23:59 | disposition home or self-care (01) | LOC: LAB.R 10:18 | PROVIDERS: ATTEND Physician Assistant Medical | DX: R21 Rash and other nonspecific skin eruption (principal) | CPT/HCPCS: 81599; 87255 ==

== ENCOUNTER 2020-06-28 06:52 | Emergency (ER) | payer MEDICARE, OTHER ==
--- NOTE | 2020-06-28 07:10 | ED Physician Documentation ---
PD HPI ABD PAIN - Stated complaint Stated Complaint: L SIDE PX - Chief complaint Chief Complaint: Abd Pain - History obtained from History obtained from: Patient - History of Present Illness Timing - onset: How many weeks ago (1) Timing - duration: Weeks (1) Timing - details: Gradual onset, Still present Quality: Aching, Sharp, Pain Location: Other (left sided lateral chest pain near lowest ribs.) Improved by: Laying still Worsened by: Moving, Position, Palpation. No: Eating, Breathing Associated symptoms: Chest pain. No: Fever, Nausea, Vomiting Similar symptoms before: Has not had sx before Recently seen: Not recently seen Review of Systems Constitutional: denies: Fever, Chills Nose: denies: Rhinorrhea / runny nose, Congestion Throat: denies: Sore throat Cardiac: reports: Chest pain / pressure (left lateral localized sharp pain with movement and palpation). 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 : Benign prostate hypertrophy HEENT: Chronic sinusitis, Chronic hearing loss Psych: None Musculoskeletal: Osteoarthritis Derm: Other - Past Surgical History Past Surgical History: Yes General: Appendectomy, Colonoscopy, Other Ortho: Knee replacement Cardiovascular: CABG, Coronary stent, Pacemaker HEENT: Tonsil/Adenoidectomy Derm: Skin cancer surgery - Present Medications Home Medications: Ambulatory Orders Medication Instructions Recorded Confirmed Multivitamin [Theragran] 1 each PO DAILY 04/10/18 06/28/20 Apixaban [Eliquis] 5 mg PO BID 02/13/19 06/28/20 Metoprolol Succinate [Toprol Xl] 50 mg PO DAILY 02/13/19 06/28/20 Rosuvastatin Calcium [Crestor] 20 mg PO DAILY 02/13/19 06/28/20 lisinopriL [Lisinopril] 2.5 mg PO DAILY 02/13/19 06/28/20 Aspirin [Adult Aspirin Regimen] 1 tab PO DAILY 12/08/19 06/28/20 Guaifenesin/Dextromethorphan 1 tab PO BID 12/08/19 06/28/20 [Mucinex Dm ER 600-30 mg Tablet] Amoxicillin/Potassium Clav 1 tab PO BID PRN 02/25/20 06/28/20 [Amox-Clav 875-125 mg Tablet] Anagrelide HCl 0.5 mg PO BID 02/25/20 06/28/20 Pregabalin 75 mg PO DAILY 02/25/20 06/28/20 HYDROcod/ACETAM 5/325 [[place]olliday 5/325] 1 ea PO Q6H PRN #18 tablet 06/28/20 Hydroxyurea [Hydrea] 500 mg PO DAILY 06/28/20 06/28/20 Lidocaine Patch 5% [Lidoderm Patch] 1 patch TOP DAILY PRN #10 patch 06/28/20 dexAMETHasone [Decadron] 4 mg PO DAILY #5 tablet 06/28/20 - Allergies Allergies/Adverse Reactions: Allergies Allergy/AdvReac Type Severity Reaction Status Date / Time isosorbide AdvReac Nausea Verified 06/28/20 06:56 - Social History Does the pt smoke?: No Smoking Status: Former smoker Does the pt drink ETOH?: Yes Does the pt have substance abuse?: No - Immunizations Immunizations are current?: Yes - POLST Patient has POLST: No POLST Status: Full Code PD ED PE NORMAL - Vitals Vital signs reviewed: Yes - General General: Alert and oriented X 3, Well developed/nourished, Other (appears in pain with movement.) - HEENT HEENT: Pharynx benign - Neck Neck: Supple, no meningeal sign, No adenopathy - Cardiac Cardiac: RRR, No murmur - Respiratory Respiratory: Clear bilaterally, Other (focal tenderness without crepitance left lateral lower chest at approx ribs 10-11. No crepitance. No rash. ) - Abdomen Abdomen: Soft, Non tender - Back Back: No CVA TTP - Derm Derm: Normal color, Warm and dry - Extremities Extremities: Normal ROM s pain, No edema, No calf tenderness / cord - Neuro Neuro: Alert and oriented X 3, No motor deficit, Normal speech Results - Vitals Vitals: Vital Signs - 24 hr 06/28/20 06/28/20 06/28/20 06:56 07:40 09:00 Temperature 97.5 C H Heart Rate 74 60 78 Respiratory 24 19 22 Rate Blood Pressure 158/67 H 119/75 O2 Saturation 97 92 06/28/20 06/28/20 09:08 09:52 Temperature 36.0 C L Heart Rate 60 73 Respiratory 20 28 H Rate Blood Pressure 127/68 115/63 O2 Saturation 93 95 Oxygen O2 Source Room air - Labs Labs: Laboratory Tests 06/28/20 06/28/20 06/28/20 07:05 07:05 07:05 WBC 41.9 H* RBC 4.61 L Hgb 14.3 Hct 45.8 MCV 99.3 H MCH 31.0 MCHC 31.2 L RDW 18.3 H Plt Count 141 Neut # (Auto) Not Reportable Lymph # (Auto) Not Reportable Josephine # (Auto) Not Reportable Eos # (Auto) Not Reportable Baso # (Auto) Not Reportable Absolute Nucleated RBC Not Reportable Total Counted 100 Band Neuts % (Manual) 1 Abnorm Lymph % (Manual) 0 Metamyelocytes % 3 H Myelocytes % 2 H Nucleated RBC % Not Reportable Neutrophils # (Manual) 31.4 H Lymphocytes # (Manual) 2.5 Monocytes # (Manual) 2.9 H Eosinophils # (Manual) 2.5 H Basophils # (Manual) 0.4 H Nucleated RBCs 1 Differential Comment MANUAL DIFFERENTIAL Platelet Estimate NORMAL (130-450,000) Platelet Morphology NORMAL APPEARANCE RBC Morph Micro Appear 2+ POLYCHROMASIA Sodium 141 Potassium 4.4 Chloride 105 Carbon Dioxide 24 Anion Gap 12.0 BUN 20 Creatinine 1.0 Estimated GFR (MDRD) 72 L Glucose 108 H Calcium 9.2 Total Bilirubin 0.8 AST 26 ALT 22 Alkaline Phosphatase 130 H Troponin I High Sens 104.0 H* Total Protein 6.7 Albumin 3.9 Globulin 2.8 Albumin/Globulin Ratio 1.4 Lipase 28 Urine Color Urine Clarity Urine pH Ur Specific [place] Urine Protein Urine Glucose (UA) Urine Ketones Urine Occult Blood Urine Nitrite Urine Bilirubin Urine Urobilinogen Ur Leukocyte Esterase Ur Microscopic Review Urine Culture Comments 06/28/20 06/28/20 08:58 08:58 WBC RBC Hgb Hct MCV MCH MCHC RDW Plt Count Neut # (Auto) Lymph # (Auto) Josephine # (Auto) Eos # (Auto) Baso # (Auto) Absolute Nucleated RBC Total Counted Band Neuts % (Manual) Abnorm Lymph % (Manual) Metamyelocytes % Myelocytes % Nucleated RBC % Neutrophils # (Manual) Lymphocytes # (Manual) Monocytes # (Manual) Eosinophils # (Manual) Basophils # (Manual) Nucleated RBCs Differential Comment Platelet Estimate Platelet Morphology RBC Morph Micro Appear Sodium Potassium Chloride Carbon Dioxide Anion Gap BUN Creatinine Estimated GFR (MDRD) Glucose Calcium Total Bilirubin AST ALT Alkaline Phosphatase Troponin I High Sens 101.5 H* Total Protein Albumin Globulin Albumin/Globulin Ratio Lipase Urine Color DARK YELLOW Urine Clarity CLEAR Urine pH 5.5 Ur Specific [place] 1.025 Urine Protein NEGATIVE Urine Glucose (UA) NEGATIVE Urine Ketones NEGATIVE Urine Occult Blood NEGATIVE Urine Nitrite NEGATIVE Urine Bilirubin NEGATIVE Urine Urobilinogen 0.2 (NORMAL) Ur Leukocyte Esterase NEGATIVE Ur Microscopic Review NOT INDICATED Urine Culture Comments NOT INDICATED - Rads (name of study) chest xray Radiology: Prelim report reviewed (no effusion nor infiltrates), See rad report PD MEDICAL DECISION MAKING - ED course Complexity details: reviewed results (had an elevation of trop, but repeat at 2 hours did not change. No obvious acute injury and his pain does not sound cardiac (Trop done as CP protocol labs). ), considered differential, d/w patient Departure - Departure Disposition: Home, Self Care Clinical Impression: Left-sided chest wall pain Clinical Impression: (Ruled Out): Pleural effusion Condition: Stable Record reviewed to determine appropriate education?: Yes Instructions: ED Chest Pain Costochondritis Follow-Up: Lonnie Nelson MD [Physician No Access] - Alfonzo Schumacher MD [Physician No Access] - Sunshine Gutierrez PA-C [Primary Care Provider] - Prescriptions: dexAMETHasone [Decadron] 4 mg PO DAILY #5 tablet Lidocaine Patch 5% [Lidoderm Patch] 1 patch TOP DAILY PRN #10 patch PRN Reason: pain HYDROcod/ACETAM 5/325 [Holliday 5/325] 1 ea PO Q6H PRN #18 tablet PRN Reason: Pain Comments: Your chest x-ray does not show any fluid collection around the lung nor any localized infiltrate such as pneumonia. Your EKG was normal with the paced rhythm. You had a slight elevation of a blood test associated with the heart but it did not changer fixer the couple of readings so does not signify any acute injury of the heart. The character of your pain seems musculoskeletal. We can try some lidocaine patches over the area and also Decadron anti-inflammatory daily for a few days. Do not use any NSAIDs since you are on a blood thinner. Continue usual medicines. Add Tylenol or hydrocodone every 4-6 hours as needed for pain. Follow-up with your primary care if not improved well over the next few days. Follow-up with your oncologist and as planned. Discharge Date/Time: 06/28/20 09:53
[2020-06-28] MEDS ORDERED: MORPHINE 2 MG/ML CARPUJECT IVP STA (07:27)
[2020-06-28 07:37] LABS: BASOPHILS % (AUTO) 2.3 %; EOSINOPHILS % (AUTO) 2.1 %; HGB - HEMOGLOBIN 14.3 g/dL (14.0-18.0); LYMPHOCYTES % (AUTO) 5.4 %; MEAN CORPUSCULAR HGB CONC 31.2 g/dL (32.0-36.0); MEAN CORPUSCULAR VOLUME 99.3 fL (80.0-94.0); MONOCYTES % (AUTO) 5.5 %; NEUTROPHILS % (AUTO) 71.9 %; PLT - PLATELET COUNT 141 10^3/uL (130-450); RED BLOOD COUNT 4.61 10^6/uL (4.70-6.10); RED CELL DISTRIBUTION WIDTH 18.3 % (12.0-15.0)
[2020-06-28 07:40] LABS: WHITE BLOOD COUNT 41.9 x10^3/uL (4.8-10.8)
[2020-06-28 07:42] LABS: ABNORMAL LYMPHS % (MANUAL) 0 %
[2020-06-28 07:51] LABS: ALBUMIN 3.9 g/dL (3.2-5.5); ALBUMIN/GLOBULIN RATIO 1.4 (1.0-2.2); BILIRUBIN,TOTAL 0.8 mg/dL (0.2-1.0); CALCIUM 9.2 mg/dL (8.5-10.3); TOTAL PROTEIN 6.7 g/dL (6.7-8.2)
[2020-06-28 08:01] LABS: BAND NEUTROPHILS % (MANUAL) 1 %; BASOPHILS # (MANUAL) 0.4 10^3/uL (0-0.1); BASOPHILS % (MANUAL) 1 %; EOSINOPHILS # (MANUAL) 2.5 10^3/uL (0-0.7); LYMPHOCYTES # (MANUAL) 2.5 10^3/uL (1.5-3.5); LYMPHOCYTES % (MANUAL) 6 %; METAMYELOCYTES % (MANUAL) 3 %; MONOCYTES # (MANUAL) 2.9 10^3/uL (0.0-1.0); MYELOCYTES % (MANUAL) 2 %
[2020-06-28 08:02] LABS: DIFFERENTIAL COMMENT MANUAL DIFFERENTIAL; PLATELET ESTIMATE, MANUAL NORMAL (130-450,000) (NORMAL); PLATELET MORPHOLOGY NORMAL APPEARANCE (NORMAL); RBC MORPHOLOGY (MULTIPLE) 2+ POLYCHROMASIA (NORMAL)
--- NOTE | 2020-06-28 08:14 | XRAY Report ---
PROCEDURE: Chest 1 View X-Ray INDICATIONS: Chest Pain TECHNIQUE: One view of the chest was acquired. COMPARISON: 04/25/2020 FINDINGS: Surgical changes and devices: Median sternotomy changes and 2-lead left chest wall cardiac pacing dev ice again noted. Lungs and pleura: Mildly increased interstitial markings in both lungs with cephalization of pulmonar y vessels. No focal consolidation. No visible pleural effusion or pneumothorax. Mediastinum: Mediastinal contours appear normal. Heart size is enlarged. Bones and chest wall: No suspicious bony lesions. Overlying soft tissues appear unremarkable. IMPRESSION: Cardiomegaly with increased interstitial markings in both lungs, suggestive of pulmonary edema. Reviewed by: Perfecto Newman MD on 06/28/2020 8:13 AM [facility] Approved by: Perfecto Newman MD on 06/28/2020 8:13 AM [facility] Station ID: [id number]
[2020-06-28] MEDS ORDERED: DEXAMETHASONE 10 MG/ML VIAL IVP STA (08:15)
[2020-06-28] MEDS ORDERED: LIDOCAINE PATCH 5% TOP STA (08:15)
[2020-06-28] MEDS ORDERED: KETOROLAC 15 MG/ML VIAL IVP STA (08:15)
[2020-06-28] MEDS ORDERED: ALBUTEROL 1 PUFF INH STA (08:37)
[2020-06-28] MEDS ORDERED: ACETAMINOPHEN 325 MG TABLET PO STA (08:38)
[2020-06-28 09:02] LABS: BILIRUBIN,URINE NEGATIVE (NEGATIVE); GLUCOSE, URINE (UA) NEGATIVE (NEGATIVE); KETONES,URINE (UA) NEGATIVE (NEGATIVE); LEUKOCYTE ESTERASE, URINE NEGATIVE (NEGATIVE); NITRITE,URINE NEGATIVE (NEGATIVE); OCCULT BLOOD,URINE NEGATIVE (NEGATIVE); PH,URINE 5.5 PH (5.0-7.5); PROTEIN,URINE NEGATIVE (NEGATIVE); UROBILINOGEN,URINE 0.2 (NORMAL) E.U./dL (NORMAL)
[2020-06-28 09:03] LABS: CLARITY,URINE CLEAR (CLEAR)
[2020-06-28 09:53] VITALS: BP 115/63
== END 2020-06-28 09:53 | disposition home or self-care (01) ==
LOC: ED 06:52
DX: R07.89 Other chest pain (principal); J90 Pleural effusion, not elsewhere classified; Z87.891 Personal history of nicotine dependence; Z95.1 Presence of aortocoronary bypass graft; Z95.0 Presence of cardiac pacemaker; I25.10 Atherosclerotic heart disease of native coronary artery without angina pectoris
CPT/HCPCS: 36415; 71045; 80053; 81003; 83690; 84484; 85025; 93005; 94640; 94664; 96374; 96375; 99284; A9270; 81001; 87086

== ENCOUNTER 2020-07-01 05:37 | Inpatient (IN) | payer MEDICARE, OTHER ==
[2020-07-01] MEDS ORDERED: NITROGLYCERIN SL 0.4 MG TABLET SL STA (06:00)
[2020-07-01] MEDS ORDERED: NITROGLYCERIN 50 MG/250 ML 50 MG/250 ML BOTTLE IV STA (06:04)
[2020-07-01] MEDS ORDERED: ASPIRIN 325 MG TABLET PO STA (06:04)
--- NOTE | 2020-07-01 06:08 | ED Physician Documentation ---
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 called ems after a couple hours of labored worsening breathing. pt c/o mild substernal chest tightness a/w sob. also with chronic nonproductive cough but no fevers. no known covid exposure. 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 : Benign prostate hypertrophy HEENT: Chronic sinusitis, Chronic hearing loss Psych: None Musculoskeletal: Osteoarthritis Derm: Other - Past Surgical History Past Surgical History: Yes General: Appendectomy, Colonoscopy, Other Ortho: Knee replacement Cardiovascular: CABG, Coronary stent, Pacemaker HEENT: Tonsil/Adenoidectomy Derm: Skin cancer surgery - Present Medications Home Medications: Ambulatory Orders Medication Instructions Recorded Confirmed Multivitamin [Theragran] 1 each PO DAILY 04/10/18 07/01/20 Apixaban [Eliquis] 5 mg PO BID 02/13/19 07/01/20 Metoprolol Succinate [Toprol Xl] 50 mg PO DAILY 02/13/19 06/28/20 Rosuvastatin Calcium [Crestor] 20 mg PO DAILY 02/13/19 07/01/20 lisinopriL [Lisinopril] 2.5 mg PO DAILY 02/13/19 07/01/20 Aspirin [Adult Aspirin Regimen] 1 tab PO DAILY 12/08/19 07/01/20 Guaifenesin/Dextromethorphan 1 tab PO BID 12/08/19 07/01/20 [Mucinex Dm ER 600-30 mg Tablet] Amoxicillin/Potassium Clav 1 tab PO BID PRN 02/25/20 07/01/20 [Amox-Clav 875-125 mg Tablet] Anagrelide HCl 0.5 mg PO BID 02/25/20 07/01/20 Pregabalin 75 mg PO DAILY 02/25/20 07/01/20 HYDROcod/ACETAM 5/325 [[place] 5/325] 1 ea PO Q6H PRN #18 tablet 06/28/20 07/01/20 Hydroxyurea [Hydrea] 500 mg PO DAILY 06/28/20 07/01/20 Lidocaine Patch 5% [Lidoderm Patch] 1 patch TOP DAILY PRN #10 patch 06/28/20 07/01/20 dexAMETHasone [Decadron] 4 mg PO DAILY #5 tablet 06/28/20 07/01/20 - Allergies Allergies/Adverse Reactions: Allergies Allergy/AdvReac Type Severity Reaction Status Date / Time isosorbide AdvReac Nausea Verified 07/01/20 05:45 - Social History Does the pt smoke?: No Smoking Status: Former smoker Does the pt drink ETOH?: Yes Does the pt have substance abuse?: No - Immunizations Immunizations are current?: Yes - POLST Patient has POLST: No POLST Status: Full Code PD ED PE NORMAL - Vitals Vital signs reviewed: Yes - General General: Alert and oriented X 3, Other (moderate respiratory distress) - HEENT HEENT: Atraumatic (multiple chronic appearing lesions to forehead and scalp), PERRL, EOMI - Neck Neck: Supple, no meningeal sign - Cardiac Cardiac: RRR - Respiratory Respiratory: Other (BL wheezing and crackles) - Abdomen Abdomen: Non tender, Non distended - Male Male : Deferred - Rectal Rectal: Deferred - Back Back: No CVA TTP - Derm Derm: Normal color - Extremities Extremities: No deformity, Other (1+ BL pitting edema) - Neuro Neuro: Alert and oriented X 3 - Psych Psych: Normal mood, Normal affect Results - Vitals Vitals: Vital Signs - 24 hr 07/01/20 07/01/20 07/01/20 05:45 06:03 06:17 Temperature 36.5 C 36.5 C Heart Rate 66 64 69 Respiratory 25 H 27 H Rate Blood Pressure 149/93 H 165/91 H 154/70 H O2 Saturation 92 95 96 07/01/20 07/01/20 07/01/20 06:19 06:26 06:30 Temperature 36.5 C 36.5 C Heart Rate 63 60 60 Respiratory 29 H 21 Rate Blood Pressure 143/64 H 131/69 H O2 Saturation 95 96 07/01/20 07/01/20 06:36 06:41 Temperature 101.3 C H Heart Rate 65 Respiratory 31 H 25 H Rate Blood Pressure 128/64 122/70 O2 Saturation 95 96 Oxygen O2 Source BIPAP Oxygen Flow Rate 3 - EKG (time done) 64 Rate: Rate (enter#) (64) Rhythm: Other (atrial paced complex) - Labs Labs: Laboratory Tests 07/01/20 07/01/20 07/01/20 06:00 06:00 06:05 WBC RBC Hgb Hct MCV MCH MCHC RDW Plt Count VBG pH 7.279 L VBG pCO2 47.7 VBG pO2 30.4 VBG HCO3 21.9 L VBG Total CO2 23.3 L VBG O2 Saturation 58.1 L VBG Base Excess -5.1 L Sodium 141 Potassium 4.4 Chloride 106 Carbon Dioxide 24 Anion Gap 11.0 BUN 27 H Creatinine 1.1 Estimated GFR (MDRD) 65 L Glucose 88 Calcium 9.0 Total Bilirubin 0.9 AST 36 ALT 26 Alkaline Phosphatase 130 H Troponin I High Sens B-Natriuretic Peptide 498 H Total Protein 7.1 Albumin 4.1 Globulin 3.0 Albumin/Globulin Ratio 1.4 Lipase 32 07/01/20 07/01/20 06:05 06:18 WBC 43.1 H* RBC 4.35 L Hgb 13.1 L Hct 44.7 MCV 102.8 H MCH 30.1 MCHC 29.3 L RDW 18.9 H Plt Count 144 VBG pH VBG pCO2 VBG pO2 VBG HCO3 VBG Total CO2 VBG O2 Saturation VBG Base Excess Sodium Potassium Chloride Carbon Dioxide Anion Gap BUN Creatinine Estimated GFR (MDRD) Glucose Calcium Total Bilirubin AST ALT Alkaline Phosphatase Troponin I High Sens 65.0 H* B-Natriuretic Peptide Total Protein Albumin Globulin Albumin/Globulin Ratio Lipase PD MEDICAL DECISION MAKING - ED course ED course: 79-year-old man presented to the emergency department and flash pulmonary edema. [id number] bedside ultrasound of the lungs showed bilateral B lines, cardiac u/s with poor ventricular squeeze, and chest x-ray showed bilateral fluffy pulmonary infiltrates concerning for pulmonary edema. Will treat with bipap, nitro for preload/afterload reduction and reassess. patient febrile on rectal exam. vbg showing metabolic acidosis. in context of cxr, high suspicion for viral vs bacterial pneumonia. will treat as sepsis. 30cc/kg bolus withheld 2/2 volume overload. d/w nighttime hospitalist - patient with improved respiratory rate and improved WOB. BP coming down. now off of nitro, still on bipap with improvement in respiratory status. abx on board. covid swab sent. d/w that he will be admitted to hospital. will go over new POLST form with her since we do not have a copy and she states his wish is to be dnr/dni and not to "live on a machine as a vegetable". Departure - Departure Disposition: 66 [facility] DC/Xfer Clinical Impression: Pneumonia, Acute pulmonary edema, Sepsis Condition: Stable
[2020-07-01 06:09] LABS: VBG PCO2 47.7 mmHg (41-51); VBG PH 7.279 (7.31-7.41)
[2020-07-01 06:10] LABS: VBG BASE EXCESS -5.1 mmol/L (-2 - +2); VBG PO2 30.4 mmHg (25-47); VBG TOTAL CO2 23.3 mmol/L (24-29)
[2020-07-01] MEDS ORDERED: NITROGLYCERIN SL 0.4 MG TABLET SL ONE (06:12)
[2020-07-01 06:32] LABS: BASOPHILS % (AUTO) 1.6 %; EOSINOPHILS % (AUTO) 1.7 %; HGB - HEMOGLOBIN 13.1 g/dL (14.0-18.0); LYMPHOCYTES % (AUTO) 5.3 %; MEAN CORPUSCULAR HEMOGLOBIN 30.1 pg (27.0-31.0); MEAN CORPUSCULAR HGB CONC 29.3 g/dL (32.0-36.0); MEAN CORPUSCULAR VOLUME 102.8 fL (80.0-94.0); MONOCYTES % (AUTO) 4.9 %; NEUTROPHILS % (AUTO) 78.4 %; PLT - PLATELET COUNT 144 10^3/uL (130-450); RED BLOOD COUNT 4.35 10^6/uL (4.70-6.10); RED CELL DISTRIBUTION WIDTH 18.9 % (12.0-15.0)
[2020-07-01 06:35] LABS: WHITE BLOOD COUNT 43.1 x10^3/uL (4.8-10.8)
[2020-07-01 06:36] LABS: ABNORMAL LYMPHS % (MANUAL) 0 %
[2020-07-01 06:40] LABS: ALBUMIN 4.1 g/dL (3.2-5.5); ALBUMIN/GLOBULIN RATIO 1.4 (1.0-2.2); BILIRUBIN,TOTAL 0.9 mg/dL (0.2-1.0); CREATININE 1.1 mg/dL (0.6-1.2); TOTAL PROTEIN 7.1 g/dL (6.7-8.2)
[2020-07-01] MEDS ORDERED: AZITHROMYCIN INJ 500 MG in SODIUM CHLORIDE 0.9% 250 ML IV STA (06:41)
[2020-07-01] MEDS ORDERED: cefTRIAXone 1 GM in SODIUM CHLORIDE 0.9% MINIBAG 100 ML IV STA (06:41)
[2020-07-01] MEDS ORDERED: cefTRIAXone 1 GM VIAL ONE (06:56)
[2020-07-01] MEDS ORDERED: ALBUTEROL NEB 2.5 MG/3 ML INH PRN (06:59)
[2020-07-01] MEDS ORDERED: ACETAMINOPHEN 325 MG TABLET PO PRN (06:59)
[2020-07-01] MEDS ORDERED: ONDANSETRON 4 MG/2 ML VIAL IVP PRN (06:59)
[2020-07-01 07:13] LABS: BAND NEUTROPHILS % (MANUAL) 6 %; BASOPHILS # (MANUAL) 0.9 10^3/uL (0-0.1); BASOPHILS % (MANUAL) 2 %; EOSINOPHILS # (MANUAL) 0.4 10^3/uL (0-0.7); LYMPHOCYTES # (MANUAL) 1.3 10^3/uL (1.5-3.5); LYMPHOCYTES % (MANUAL) 3 %; METAMYELOCYTES % (MANUAL) 2 %; MONOCYTES # (MANUAL) 0.9 10^3/uL (0.0-1.0); MYELOCYTES % (MANUAL) 3 %; PROMYELOCYTES % (MANUAL) 1 %
[2020-07-01 07:14] LABS: PLATELET ESTIMATE, MANUAL NORMAL (130-450,000) (NORMAL); PLATELET MORPHOLOGY 1+ GIANT PLATELETS (NORMAL)
[2020-07-01 07:15] LABS: DIFFERENTIAL COMMENT MANUAL DIFFERENTIAL
[2020-07-01 07:17] LABS: C. PNEUMONIAE- RESP PCR PANEL NOT DETECTED
--- NOTE | 2020-07-01 07:51 | XRAY Report ---
PROCEDURE: Chest 1 View X-Ray INDICATIONS: Chest Pain TECHNIQUE: One view of the chest was acquired. COMPARISON: and 04/25/2020 FINDINGS: Surgical changes and devices: Unchanged left chest wall 2-lead cardiac device. Lungs and pleura: Diffuse interstitial prominence, pulmonary vascular congestion, and diffuse patchy opacities throughout the lungs. No significant pleural effusion. No pneumothorax. Mediastinum: Mild cardiomegaly. Bones and chest wall: No suspicious bony lesions. Overlying soft tissues appear unremarkable. IMPRESSION: Diffuse patchy opacities throughout the lungs along with interstitial prominence and pulmonary vascul ar congestion favors pulmonary edema. Differential includes atypical infectious process. Cardiomegaly. Given increased size since April 2020 comparison, consider pericardial effusion. Agree with preliminary report. Reviewed by: Joe Mcbride DO on 07/01/2020 6:49 AM [facility] Approved by: Joe Mcbride DO on 07/01/2020 6:49 AM [place] Station ID: [id number]
[2020-07-01] MEDS: CEFEPIME 2 GM in SODIUM CHLORIDE 0.9% MINIBAG 100 ML IV SCH ×3 (08:06→21:14)
[2020-07-01] MEDS: SODIUM CHLORIDE FLUSH 0.9% 10 ML SYRINGE IVP SCH ×2 (08:15→19:09)
--- NOTE | 2020-07-01 11:22 | HISTORY & PHYSICAL EXAMINATION ---
Chief Complaint - Chief Complaint Chief Complaint: shortness of breath History of Present Illness - Admitted From Admitted From:: Home - History Obtained From Records Reviewed: 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 Per Pt's , he was walking around and working on restoring a car in the [employer] last evening. She reports he woke at 0200 with difficulty breathing unrelieved with his albuterol inhaler so she called EMS. In the ER he was complaining of mild substernal chest tightness. He also had a chronic non-productive cough. Denied fevers, chills, malaise. No recent sick contacts and negative for Covid in the ER. While in the ED he was hypertensive with tmax 101.3 rectally. He was tachypneic and hypoxic and placed on bipap with some relief. WBC in the 40s, likely combination of infection but higher due to MDS. CXR showed "diffuse patchy opacities throughout the lungs along with interstitial prominence and pulmonary vascularcongestion favors pulmonary edema. Differential includes atypical infectious process." He also has cardiomegaly and possibly pericardial effusio n. Of note, he was seen in the ED 2/3 for left sided rib pain, and CXR did not show "any fluid collection around the lung nor any localized infiltrate such as pneumonia". Over the next few days he continued to complain of shortness of breath but worsened overnight. He was admitted to the ICU for close monitoring and started on IV antibiotics for sepsis and atypical pneumonia with continued bipap for acute respiratory failure with hypoxia. Additionally, Pt's discussed code status with the ER team and made him DNR/DNI. 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: None : reports: Benign prostate hypertrophy HEENT: reports: Chronic sinusitis, Chronic hearing loss Psych: reports: None Musculoskeletal: reports: Osteoarthritis Derm: reports: Other MRSA Hx?: No Other Past Medical History: Myeloproliferative disease, skin cancer face - Past Surgical History General: reports: Appendectomy, Colonoscopy, Other Ortho: reports: Knee replacement Cardiovascular: reports: CABG, Coronary stent, Pacemaker HEENT: reports: Tonsil/Adenoidectomy Derm: reports: Skin cancer surgery - Family & Social History Family History: Mother: , Asthma, CAD, Father: , CVA/TIA, Brother: Living arrangement: At home Living Situation: With spouse/s.o. Social History Notes: 77 yo father of 2 boys lives with his . Retired [employer] in 1987 moved from the [facility] to [facility]. 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 Have sailed all around the world. Pt grew up with smoking parents, but did not smoke. He drinks 2 scotches per night (4 per his ). He denies any illicit drug use. - Substance History Use: Uses substance without health or social issues: Alcohol Abuse: Recurrent use of substance despite neg consequences: NONE Dependence: Experiences withdrawal or developed tolerances: NONE - POLST Patient has POLST: Yes POLST Status: DNR Meds/Allgy - Home Medications Home Medications: Ambulatory Orders Medication Instructions Recorded Confirmed Multivitamin [Theragran] 1 each PO DAILY 04/10/18 07/01/20 Apixaban [Eliquis] 5 mg PO BID 02/13/19 07/01/20 Metoprolol Succinate [Toprol Xl] 50 mg PO DAILY 02/13/19 07/01/20 Rosuvastatin Calcium [Crestor] 20 mg PO DAILY 02/13/19 07/01/20 lisinopriL [Lisinopril] 2.5 mg PO DAILY 02/13/19 07/01/20 Aspirin [Adult Aspirin Regimen] 1 tab PO DAILY 12/08/19 07/01/20 Guaifenesin/Dextromethorphan 1 tab PO BID 12/08/19 07/01/20 [Mucinex Dm ER 600-30 mg Tablet] Amoxicillin/Potassium Clav 1 tab PO BID PRN 02/25/20 07/01/20 [Amox-Clav 875-125 mg Tablet] Pregabalin 75 mg PO DAILY 02/25/20 07/01/20 HYDROcod/ACETAM 5/325 [[place] 5/325] 1 ea PO Q6H PRN #18 tablet 06/28/20 07/01/20 Hydroxyurea [Hydrea] 500 mg PO DAILY 06/28/20 07/01/20 Lidocaine Patch 5% [Lidoderm Patch] 1 patch TOP DAILY PRN #10 patch 06/28/20 07/01/20 dexAMETHasone [Decadron] 4 mg PO DAILY #5 tablet 06/28/20 07/01/20 Albuterol Sulfate [Proair Hfa 1 puffs INH BID 07/01/20 07/01/20 Inhaler] Anagrelide HCl 1 mg PO BID 07/01/20 07/01/20 - Allergies Allergies/Adverse Reactions: Allergies Allergy/AdvReac Type Severity Reaction Status Date / Time isosorbide AdvReac Nausea Verified 07/01/20 05:45 Review of Systems - Other Findings Other Findings: Pt is lethargic and hard of hearing and was unable to answer any ROS questions. Prior Level of Functionality: Pt's reports he is "completely independent at home", able to perform all ADLs, driving, cleaning, etc. Exam - Vital Signs Reviewed Vital Signs: Yes Vital Signs: Vital Signs x48h Temp Pulse Pulse Resp BP BP Pulse Ox 07/01/20 11:00 60 28 H 126/62 96 07/01/20 10:00 71 25 H 131/59 H 97 07/01/20 09:00 69 32 H 133/62 H 97 07/01/20 08:56 66 07/01/20 08:00 69 31 H 129/63 97 07/01/20 07:56 37.3 C 64 28 H 134/64 H 100 07/01/20 07:31 38.9 C H 60 35 H 110/69 96 07/01/20 07:00 39.1 C H 62 31 H 121/66 98 07/01/20 06:41 101.3 C H 65 25 H 122/70 96 07/01/20 06:36 31 H 128/64 95 07/01/20 06:30 36.5 C 60 21 131/69 H 96 07/01/20 06:26 36.5 C 60 29 H 143/64 H 95 07/01/20 06:19 63 07/01/20 06:17 36.5 C 69 27 H 154/70 H 96 07/01/20 06:03 64 165/91 H 95 07/01/20 05:45 36.5 C 66 25 H 149/93 H 92 - Physical Exam General Appearance: positive: Lethargic Eyes Bilateral: positive: Normal inspection, PERRL ENT: positive: ENT inspection nml Neck: positive: Nml inspection Respiratory: positive: Wheezes Cardiovascular: positive: Regular rate & rhythm, No murmur, No gallop Peripheral Pulses: positive: 2+ Abdomen: positive: Non-tender, No organomegaly, Nml bowel sounds, No distention Skin: positive: Pallor, Other (skin lesions on face 2/2 prior skin cancer per ; healed wound on right foot, corn removed from left lateral 5th toe now with maceration but no open wound. Multiple stable eschars on the face after effudex treatment.) Extremities: positive: Nml appearance, No pedal edema Neurologic/Psychiatric: positive: Other (lethargic and hard of hearing, not able to answer questions) Sepsis Event Note (H) - Evaluation Current Stage of Sepsis: Sepsis Possible source of Sepsis: positive: Pulmonary - Sepsis Criteria Sepsis Criteria: Recorded Temperature greater than 38.3C or Less than 36C, Recorded Respiratory Rate greater than 20, Respiratory: Increasing oxygen requirements, WBC count greater than 12,000 or less than 4000, SENIOR DESIGN ENGINEERING SPECIALIST: altered consciousness (unrelated to primary neuro pathology) Conclusion/Plan - Problem List (1) Sepsis Conclusion/Plan: Likely from atypical pneumonia. Blood cultures pending, waiting on sputum culture. Febrile, hypoxic, tachypneic and briefly hypertensive. Elevated WBC, likely combination of his MDS and infection. IV abx started. 1. Blood cultures x2 2. Sputum culture 3. Continue Cefepime and Azithro while waiting on culture results 4. Supportive care as needed Qualifiers: Sepsis type: sepsis due to unspecified organism Sepsis acute organ dysfunction status: with acute organ dysfunction Severe sepsis acute organ dysfunction type: acute respiratory failure Acute respiratory failure type: with hypoxia Severe sepsis shock status: without septic shock Qualified Code(s): A41.9 - Sepsis, unspecified organism; R65.20 - Severe sepsis without septic shock; J96.01 - Acute respiratory failure with hypoxia (2) Acute respiratory failure with hypoxia Conclusion/Plan: Admitted with acutely worsened dyspnea. CXR concerning for atypical pneumonia. Covid negative in the ED. Required 3L NC to maintain O2 sat 92%, transferred to bipap. Tachypneic to 30s,now to high 20s on bipap. RT following. VBG with metaboloic acidosis. Troponins are trending down from first draw 2/3 and improving, no CT seen on EKG. BNP elevated but <500, cardiomegaly seen on x-ray but in context of acute dyspnea and no edema or crackles in lungs unlikely to be CHF. Also with normal EF on most recent Echo September 2019. Chest pain in ED was "mild" and substernal tightness, not sharp and no EKG changes concerning for PE, but will consider DDimer and CT PE if hypoxia worsens. 1. Abx and supportive care for PNA 2. Bipap for hypoxia, followed by RT 3. CMP, CBC, VBG 4. Telemetry (3) Atypical pneumonia Conclusion/Plan: Febrile, tachypnic, dyspnea, elevated WBC, patchy opacities seen on CXR. Septic, likely related to this atypical pneumonia. Bipap in place for management of hypoxia and IV antibiotics started for treatment. Blood and sputum cx pending. 1. Blood cx 2. Sputum cx 3. Daily CBC 4. Bipap as needed, managed by RT 5. Supportive care as needed (4) Immunocompromised state Conclusion/Plan: Octavio 2+, with panmyelosis. On hydroxyurea 500 mg a day, also per ED note 2/3 receiving dexamethasone. WBC elevated to 40s, likely due to immunocompromised state as well as treatment for MDS. 1. Monitor CBC (5) Acute pulmonary edema Conclusion/Plan: Seen on XR. Presented with severe dyspnea, hypoxia and tachypnia. Now requiring Bipap to maintain saturations. Still tachypneic to high 20s but has come down from the 30s with use of the bipap. His (SANTO) has signed a polst form for DNR/DNI so will continue use of the bipap as needed. 1. Bipap, managed by RT 2. Supportive care as needed (6) Hypertension Conclusion/Plan: Elevated in the ER, briefly required nitroglycerin drip. Has stabilized and remained normotensive since admission to ICU. 1. Monitor VS Q4H 2. Resume home medications when appropriate Qualifiers: Hypertension type: essential hypertension Qualified Code(s): I10 - Essential (primary) hypertension (7) Myeloproliferative disorder Conclusion/Plan: Octavio 2+, with panmyelosis. On hydroxyurea 500 mg, recently restarted after a wound on his foot healed. Continue while here. 1. Resume Hydroxyurea and Anagrelide when appropriate (8) History of coronary artery disease Conclusion/Plan: Extensive cardiac hx. Hx HLD, CAD with bare-metal stents x2 LAD 06/30/2013. S/p pacer for bradycardia. Last echo done in September 2019 showed mild concentric left ventricular hypertrophy, normal ventricular systolic function with EF 60-65%, mild aoritc stenosis and mild to moderate primary mitral regurgitation. Has been taking his meds as instructed, including crestor, aspirin, eliquis, and metoprolol. EKG A-paced. 1. Telemetry 2. Resume home meds when appropriate - Lab Results Fish Bones: 07/01/20 06:18 07/01/20 06:05 - Diagnostic Imaging Results Diagnostic Imaging Results: positive: Final report reviewed - EKG Results EKG Interpreted Independently: Yes Core Measures - DVT/VTE - Prophylaxis VTE/DVT Device ordered at admit?: Yes
[2020-07-01] MEDS ORDERED: LIDOCAINE PATCH 5% TOP PRN (12:35)
[2020-07-01] MEDS: ATORVASTATIN 40 MG TABLET PO SCH (13:26)
[2020-07-01] MEDS: PREGABALIN 25 MG CAPSULE PO SCH (13:27)
--- NOTE | 2020-07-01 14:21 | PHARMACY PROGRESS NOTE ---
- Best Possible Medication History Admit Date and Time: 07/01/20 0659 Processed by: Pharmacy Medication History completed: Yes Patient Interview: Pt unable to participate Secondary Source(s): Spouse/Significant other, Physician records, Pharmacy re cords, Insurance records As the person ultimately responsible for medication therapy, providers are able to order a medication from an existing home medication list in [facility] via the "Reconcile Routine" prior to Confirmation of that medication by client support administrator. Such practice is discouraged except when the physician, in their clinical judgment, deems that a medical need exists for a medication without regard to previous use.
[2020-07-01] MEDS: HYDROcod/ACETAM 5/325 MG TABLET PO PRN (21:12)
[2020-07-01] MEDS: APIXABAN 5 MG TABLET PO SCH (21:12)
[2020-07-02] MEDS: SODIUM CHLORIDE FLUSH 0.9% 10 ML SYRINGE IVP SCH ×4 (01:22→23:53)
[2020-07-02 05:07] LABS: BASOPHILS % (AUTO) 1.7 %; EOSINOPHILS % (AUTO) 1.9 %; HGB - HEMOGLOBIN 11.8 g/dL (14.0-18.0); NEUTROPHILS % (AUTO) 74.6 %; PLT - PLATELET COUNT 105 10^3/uL (130-450); RED BLOOD COUNT 3.93 10^6/uL (4.70-6.10); RED CELL DISTRIBUTION WIDTH 18.7 % (12.0-15.0); WHITE BLOOD COUNT 32.5 x10^3/uL (4.8-10.8)
[2020-07-02 05:10] LABS: ABNORMAL LYMPHS % (MANUAL) 0 %; BAND NEUTROPHILS % (MANUAL) 0 %
[2020-07-02 05:18] LABS: CALCIUM 8.4 mg/dL (8.5-10.3); CREATININE 0.9 mg/dL (0.6-1.2); MAGNESIUM 2.4 mg/dL (1.7-2.8); PHOSPHORUS 3.5 mg/dL (2.5-4.6)
[2020-07-02] MEDS: CEFEPIME 2 GM in SODIUM CHLORIDE 0.9% MINIBAG 100 ML IV SCH ×2 (05:22→14:33)
[2020-07-02] MEDS: HYDROcod/ACETAM 5/325 MG TABLET PO PRN ×2 (05:27→11:57)
[2020-07-02 05:32] LABS: LYMPHOCYTES # (MANUAL) 2.3 10^3/uL (1.5-3.5); LYMPHOCYTES % (MANUAL) 7 %; METAMYELOCYTES % (MANUAL) 3 %; MONOCYTES # (MANUAL) 2.3 10^3/uL (0.0-1.0); MYELOCYTES % (MANUAL) 2 %; PROMYELOCYTES % (MANUAL) 1 %
[2020-07-02 05:33] LABS: PLATELET ESTIMATE, MANUAL DECREASED (<130,000) (NORMAL); PLATELET MORPHOLOGY 1+ GIANT PLATELETS (NORMAL)
[2020-07-02 05:35] LABS: DIFFERENTIAL COMMENT MANUAL DIFFERENTIAL
[2020-07-02] MEDS: PREGABALIN 25 MG CAPSULE PO SCH ×2 (08:07→20:47)
[2020-07-02] MEDS: lisinopriL 5 MG TABLET PO SCH (08:16)
[2020-07-02] MEDS: APIXABAN 5 MG TABLET PO SCH ×2 (08:16→20:47)
[2020-07-02] MEDS: METOPROLOL SUCCINATE 50 MG TABLET PO SCH (08:26)
[2020-07-02] MEDS: ATORVASTATIN 40 MG TABLET PO SCH (08:26)
[2020-07-02] MEDS ORDERED: AZITHROMYCIN INJ 500 MG in SODIUM CHLORIDE 0.9% 250 ML IV SCH (09:00)
--- NOTE | 2020-07-02 09:16 | PROVIDER PROGRESS NOTE ---
Subjective - Prog Note Date Prog Note Date: 07/02/20 - Subjective Pt reports feeling: Improved (Reports his breathing feels like it's at his baseline and he is feeling "much better") Subjective: Pt was weaned off the bipap last evening around 2200 to 2L NC, now is tolerating room air with O2 sats 94-99%. Denies pain, n/v, dizziness or chills. Remaining ROS negative. Reporting explosive diarrhea, which reports occurs every 3 days or so at home. Objective - Vital Signs/Intake & Output Reviewed Vital Signs: Yes Vital Signs: Vital Signs Temp Pulse Resp BP Pulse Ox 07/02/20 08:00 36.8 C 66 21 116/72 94 07/02/20 07:00 60 19 116/39 L 96 07/02/20 06:00 66 20 123/54 L 98 Intake & Output: Intake & Output 06/29/20 06/30/20 07/01/20 07/02/20 23:59 23:59 23:59 23:59 Intake Total 1911.0 780 Output Total 1005 775 Balance 906.0 5 - Objective General Appearance: positive: No acute distress, Alert Eyes Bilateral: positive: Normal inspection, PERRL, EOMI ENT: positive: ENT inspection nml, No signs of dehydration Neck: positive: Nml inspection Respiratory: positive: Chest non-tender, Wheezes (coarse sounding in the bases with occasional expiratory wheeze) Cardiovascular: positive: Regular rate & rhythm, No murmur, No gallop Peripheral Pulses: 2+ Radial (R), 2+ Radial (L), 2+ Dorsalis pedis (R), 2+ Dorsalis pedis (L) Abdomen: positive: Non-tender, No organomegaly, Nml bowel sounds, No distention, Tenderness, Other (diarrhea) Skin: positive: Pallor, Other (scattered eschars on the face, no sign of wound infection.) Extremities: positive: Non-tender, Full ROM, Nml appearance Neurologic/Psychiatric: positive: Oriented x3, Motor nml - Lab Results Fish Bones: 07/02/20 04:56 07/02/20 04:56 Other Labs: Lab Results x24hrs 07/02/20 07/02/20 07/02/20 Range/Units 07:37 04:56 04:56 WBC 32.5 H (4.8-10.8) x10^3/uL RBC 3.93 L (4.70-6.10) 10^6/uL Hgb 11.8 L (14.0-18.0) g/dL Hct 39.3 L (42.0-52.0) % MCV 100.0 H (80.0-94.0) fL MCH 30.0 (27.0-31.0) pg MCHC 30.0 L (32.0-36.0) g/dL RDW 18.7 H (12.0-15.0) % Plt Count 105 L (130-450) 10^3/uL Neut # (Auto) Not Reportable Lymph # (Auto) Not Reportable [place] # (Auto) Not Reportable Eos # (Auto) Not Reportable Baso # (Auto) Not Reportable Absolute Nucleated RBC Not Reportable Total Counted 100 Band Neuts % (Manual) 0 (0 - 10) % Abnorm Lymph % (Manual) 0 % Metamyelocytes % 3 H ( - 0) % Myelocytes % 2 H ( - 0) % Promyelocytes % 1 H ( - 0) % Nucleated RBC % Not Reportable Neutrophils # (Manual) 25.0 H (1.5-6.6) 10^3/uL Lymphocytes # (Manual) 2.3 (1.5-3.5) 10^3/uL Monocytes # (Manual) 2.3 H (0.0-1.0) 10^3/uL Eosinophils # (Manual) 1.0 H (0-0.7) 10^3/uL Basophils # (Manual) 0.0 (0-0.1) 10^3/uL Nucleated RBCs 10 % Differential Comment MANUAL DIFFERENTIAL WBC Morphology 1+ HYPERSEG NEUT (NORMAL) Platelet Estimate DECREASED (<130,000) (NORMAL) Platelet Morphology 1+ GIANT PLATELETS (NORMAL) RBC Morph Micro Appear 2+ ANISOCYTOSIS (NORMAL) Sodium 137 (135-145) mmol/L Potassium 3.9 (3.5-5.0) mmol/L Chloride 105 (101-111) mmol/L Carbon Dioxide 21 (21-32) mmol/L Anion Gap 11.0 (6-13) BUN 21 H (6-20) mg/dL Creatinine 0.9 (0.6-1.2) mg/dL Estimated GFR (MDRD) 82 L (>89) Glucose 92 (70-100) mg/dL POC Whole Bld Glucose 144 H (70 - 100) mg/dL Calcium 8.4 L (8.5-10.3) mg/dL Phosphorus 3.5 (2.5-4.6) mg/dL Magnesium 2.4 (1.7-2.8) mg/dL Nasal Screen MRSA (PCR) (NEGATIVE) 07/01/20 07/01/20 07/01/20 Range/Units 21:09 18:27 11:59 WBC (4.8-10.8) x10^3/uL RBC (4.70-6.10) 10^6/uL Hgb (14.0-18.0) g/dL Hct (42.0-52.0) % MCV (80.0-94.0) fL MCH (27.0-31.0) pg MCHC (32.0-36.0) g/dL RDW (12.0-15.0) % Plt Count (130-450) 10^3/uL Neut # (Auto) Lymph # (Auto) [place] # (Auto) Eos # (Auto) Baso # (Auto) Absolute Nucleated RBC Total Counted Band Neuts % (Manual) (0 - 10) % Abnorm Lymph % (Manual) % Metamyelocytes % ( - 0) % Myelocytes % ( - 0) % Promyelocytes % ( - 0) % Nucleated RBC % Neutrophils # (Manual) (1.5-6.6) 10^3/uL Lymphocytes # (Manual) (1.5-3.5) 10^3/uL Monocytes # (Manual) (0.0-1.0) 10^3/uL Eosinophils # (Manual) (0-0.7) 10^3/uL Basophils # (Manual) (0-0.1) 10^3/uL Nucleated RBCs % Differential Comment WBC Morphology (NORMAL) Platelet Estimate (NORMAL) Platelet Morphology (NORMAL) RBC Morph Micro Appear (NORMAL) Sodium (135-145) mmol/L Potassium (3.5-5.0) mmol/L Chloride (101-111) mmol/L Carbon Dioxide (21-32) mmol/L Anion Gap (6-13) BUN (6-20) mg/dL Creatinine (0.6-1.2) mg/dL Estimated GFR (MDRD) (>89) Glucose (70-100) mg/dL POC Whole Bld Glucose 89 87 83 (70 - 100) mg/dL Calcium (8.5-10.3) mg/dL Phosphorus (2.5-4.6) mg/dL Magnesium (1.7-2.8) mg/dL Nasal Screen MRSA (PCR) (NEGATIVE) 07/01/20 Range/Units 09:40 WBC (4.8-10.8) x10^3/uL RBC (4.70-6.10) 10^6/uL Hgb (14.0-18.0) g/dL Hct (42.0-52.0) % MCV (80.0-94.0) fL MCH (27.0-31.0) pg MCHC (32.0-36.0) g/dL RDW (12.0-15.0) % Plt Count (130-450) 10^3/uL Neut # (Auto) Lymph # (Auto) [place] # (Auto) Eos # (Auto) Baso # (Auto) Absolute Nucleated RBC Total Counted Band Neuts % (Manual) (0 - 10) % Abnorm Lymph % (Manual) % Metamyelocytes % ( - 0) % Myelocytes % ( - 0) % Promyelocytes % ( - 0) % Nucleated RBC % Neutrophils # (Manual) (1.5-6.6) 10^3/uL Lymphocytes # (Manual) (1.5-3.5) 10^3/uL Monocytes # (Manual) (0.0-1.0) 10^3/uL Eosinophils # (Manual) (0-0.7) 10^3/uL Basophils # (Manual) (0-0.1) 10^3/uL Nucleated RBCs % Differential Comment WBC Morphology (NORMAL) Platelet Estimate (NORMAL) Platelet Morphology (NORMAL) RBC Morph Micro Appear (NORMAL) Sodium (135-145) mmol/L Potassium (3.5-5.0) mmol/L Chloride (101-111) mmol/L Carbon Dioxide (21-32) mmol/L Anion Gap (6-13) BUN (6-20) mg/dL Creatinine (0.6-1.2) mg/dL Estimated GFR (MDRD) (>89) Glucose (70-100) mg/dL POC Whole Bld Glucose (70 - 100) mg/dL Calcium (8.5-10.3) mg/dL Phosphorus (2.5-4.6) mg/dL Magnesium (1.7-2.8) mg/dL Nasal Screen MRSA (PCR) NEGATIVE (NEGATIVE) Sepsis Event Note (H) - Evaluation Current Stage of Sepsis: Resolved Possible source of Sepsis: positive: Pulmonary - Sepsis Criteria Sepsis Criteria: Recorded Temperature greater than 38.3C or Less than 36C, Recorded Respiratory Rate greater than 20, Respiratory: Increasing oxygen requirements, WBC count greater than 12,000 or less than 4000, CAR REPOSSESSOR: altered consciousness (unrelated to primary neuro pathology) Assessment/Plan - Problem List (1) Acute respiratory failure with hypoxia Impression: Resolved. Admitted with acutely worsened dyspnea and CXR concerning for pneumonia vs pulmonary edema. Covid negative, BNP elevated to <500. No chest pain. Lungs are coarse sounding with occasional expiratory wheezes at the bases. Was able to wean to nasal cannula at 2200 last evening and to room air this morning,satting 94-99%. He denies dyspnea today and does not have a productive cough. 1. Abx, treat for PNA 2. Monitor oxygen saturations, VS 3. Inspiratory Spirometer 10x/hr while awake (2) Atypical pneumonia Impression: Febrile, tachypnic, dyspnea, elevated WBC, patchy opacities seen on CXR on admission. Blood cultures with no growth today, still pending. He has remained afebrile and vitals have been stable. He is responding appropriately to abx and is now on room air with high O2 saturations. Can likely come out of the ICU today, may be able to discharge tomorrow. 1. Monitor Blood cx 2. Transition to oral abx today 3. Supportive care as needed (3) Immunocompromised state Impression: Octavio 2+, with panmyelosis. On hydroxyurea, anagrelide and decadron daily. 1. Resume home medications (4) Acute pulmonary edema Impression: Seen on XR. Presented with severe dyspnea, hypoxia and tachypnia. These have resolved and he is now tolerating room air with saturations >94% and no dyspnea or cough. Respiratory rate in the teens. 1. Supportive care as needed (5) Hypertension Impression: Elevated in the ER, briefly required nitroglycerin drip. Has stabilized and remained normotensive since admission to ICU. 1. VS Q8H 2. Resume home medications Qualifiers: Hypertension type: essential hypertension Qualified Code(s): I10 - Essential (primary) hypertension (6) Myeloproliferative disorder Impression: Octavio 2+, with panmyelosis. On hydroxyurea 500 mg, recently restarted after a wound on his foot healed. Continue while here. Also takes Anagrelide and Decadron. 1. Resume Hydroxyurea, Anagrelide and Decadron (7) History of coronary artery disease Impression: Extensive cardiac hx. Hx HLD, CAD with bare-metal stents x2 LAD 06/30/2013. S/p pacer for bradycardia. Last echo done in September 2019 showed mild concentric left ventricular hypertrophy, normal ventricular systolic function with EF 60-65%, mild aoritc stenosis and mild to moderate primary mitral regurgitation. Has been taking his meds as instructed, including crestor, aspirin, eliquis, lisinopril and metoprolol. EKG A-paced. 1. Telemetry 2. Resume home meds (8) Sepsis Impression: Resolved. Afebrile, VSS. Blood cultures with no growth to date, still pending. No sputum culture as he has not had a productive cough. He was able to wean to room air and denies dyspnea. WBC decreasing, remains elevated due to MDS. Will transition to oral abx. 1. Transition to oral abx 2. Monitor bld cxs 3. Sputum cx if able to obtain Qualifiers: Sepsis type: sepsis due to unspecified organism Sepsis acute organ dysfunction status: with acute organ dysfunction Severe sepsis acute organ dysfunction type: acute respiratory failure Acute respiratory failure type: with hypoxia Severe sepsis shock status: without septic shock Qualified Code(s): A41.9 - Sepsis, unspecified organism; R65.20 - Severe sepsis without septic shock; J96.01 - Acute respiratory failure with hypoxia
[2020-07-02] MEDS: SODIUM CHLORIDE FLUSH 0.9% 10 ML SYRINGE IVP PRN ×2 (09:50→15:15)
[2020-07-03 04:55] LABS: BASOPHILS % (AUTO) 2.2 %; EOSINOPHILS % (AUTO) 3.6 %; HGB - HEMOGLOBIN 12.5 g/dL (14.0-18.0); MEAN CORPUSCULAR HEMOGLOBIN 30.6 pg (27.0-31.0); MEAN CORPUSCULAR HGB CONC 30.9 g/dL (32.0-36.0); MONOCYTES % (AUTO) 6.2 %; NEUTROPHILS % (AUTO) 70.1 %; PLT - PLATELET COUNT 122 10^3/uL (130-450); RED BLOOD COUNT 4.09 10^6/uL (4.70-6.10); RED CELL DISTRIBUTION WIDTH 18.8 % (12.0-15.0)
[2020-07-03 05:00] LABS: WHITE BLOOD COUNT 36.2 x10^3/uL (4.8-10.8)
[2020-07-03 05:06] LABS: CALCIUM 8.5 mg/dL (8.5-10.3); CREATININE 0.9 mg/dL (0.6-1.2); MAGNESIUM 2.4 mg/dL (1.7-2.8); PHOSPHORUS 3.5 mg/dL (2.5-4.6)
[2020-07-03 05:14] LABS: ABNORMAL LYMPHS % (MANUAL) 2 %; BAND NEUTROPHILS % (MANUAL) 1 %; EOSINOPHILS # (MANUAL) 1.4 10^3/uL (0-0.7); LYMPHOCYTES # (MANUAL) 3.3 10^3/uL (1.5-3.5); LYMPHOCYTES % (MANUAL) 7 %; METAMYELOCYTES % (MANUAL) 3 %; MONOCYTES # (MANUAL) 0.7 10^3/uL (0.0-1.0); MYELOCYTES % (MANUAL) 5 %
[2020-07-03 05:15] LABS: DIFFERENTIAL COMMENT MANUAL DIFFERENTIAL; PLATELET ESTIMATE, MANUAL DECREASED (<130,000) (NORMAL); PLATELET MORPHOLOGY NORMAL APPEARANCE (NORMAL); RBC MORPHOLOGY (MULTIPLE) 2+ ANISOCYTOSIS (NORMAL)
[2020-07-03] MEDS: lisinopriL 5 MG TABLET PO SCH (08:11)
[2020-07-03] MEDS: PREGABALIN 25 MG CAPSULE PO SCH (08:12)
[2020-07-03] MEDS: APIXABAN 5 MG TABLET PO SCH (08:13)
[2020-07-03] MEDS: ATORVASTATIN 40 MG TABLET PO SCH (08:13)
[2020-07-03] MEDS: SODIUM CHLORIDE FLUSH 0.9% 10 ML SYRINGE IVP SCH (08:14)
[2020-07-03] MEDS: METOPROLOL SUCCINATE 50 MG TABLET PO SCH (08:14)
--- NOTE | 2020-07-03 08:32 | Discharge Plan ---
Discharge Plan Problem Reviewed?: Yes Disposition: Home, Self Care Condition: Stable Prescriptions: levoFLOXacin [Levaquin] 250 mg PO ONCE #8 tab Diet: Regular Activity Restrictions: Activity as Tolerated Shower Restrictions: No Driving Restrictions: No Instruction Topics: Pneumonia, Pneumonia Tx Health Concerns: You have myelodysplastic syndrome and bronchiectasis and are on immune compromising drugs. You woke up in the middle night not feeling well struggling for air. He came to the emergency room with sudden cough, shortness of breath, and confusion. In the emergency room we found you to have diffuse patchy pneumonia throughout both lungs. You were Covid negative. You were struggling to breathe so badly that we had to put you in the intensive care unit with BiPAP. You responded very nicely to antibiotics, nebulizers, steroids. You were able to be transitioned to medicines by mouth and now ready for discharge. Plan of Treatment: 1. People who have bronchiectasis are at risk for a bacteria called Pseudomonas. He will be sent home to complete antibiotic therapy with azithromycin for atypical pneumonia, and Levaquin which covers Pseudomonas and other causes of bacterial pneumonia. The azithromycin is for 2 days, the Levaquin is for 4 more days. 2. You do not need to take your monthly Augmentin for this month. You can resume it in July. 3. Please see your primary care provider in the next 1 to 2 weeks for follow- up. Have a repeat chest x-ray done. Care Goals: To remain symptom free for as long as possible. Assessment: Diagnosis and treatment discussed with he and . initially thought he had pulmonary edema only. I have carefully explained to her that we treated him for infection. No Smoking: If you smoke, Please STOP! Call for help. Follow-up with: Sunshine Gutierrez PA-C [Primary Care Provider] -
[2020-07-03] MEDS ORDERED: AZITHROMYCIN 250 MG TABLET PO SCH (09:00)
[2020-07-03] MEDS ORDERED: dexAMETHasone 4 MG TABLET PO SCH (09:00)
--- NOTE | 2020-07-03 09:08 | DISCHARGE SUMMARY ---
Discharge Summary Admit Date: 07/01/20 Discharge Date: 07/03/20 Discharging Provider: Autumn Paiz Primary Care Provider: Sunshine Gutierrez Code Status: Do Not Attempt Resuscitation Condition at Discharge: Stable Discharge Disposition: 01 Home, Self Care - DIAGNOSES Discharge Diagnoses with Status of Each Condition: (1) Acute respiratory failure with hypoxia Impression: Resolved. Admitted with acutely worsened dyspnea and CXR concerning for pneumonia vs pulmonary edema. Covid negative, BNP elevated to <500. No chest pain. Lungs are coarse sounding with occasional expiratory wheezes at the bases. Was able to wean to nasal cannula at 2200 2/ and to room air 2/,satting 94-99%. He denies dyspnea today and does not have a productive cough. 1. Abx, continue for 5 day course of Levoquin (2) Atypical pneumonia Impression: Improved. Febrile, tachypnic, dyspnea, elevated WBC, patchy opacities seen on CXR on admission. Blood cultures NGTD x2 days. He has remained afebrile and vitals have been stable. He is responding appropriately to abx and is now on room air with high O2 saturations. 1. Monitor Blood cx 2. 5 day course of Levoquin (3) Immunocompromised state Impression: Stable. Octavio 2+, with panmyelosis. On hydroxyurea, anagrelide and decadron daily. (4) Acute pulmonary edema Impression: Improved. Seen on XR. Presented with severe dyspnea, hypoxia and tachypnia. These have resolved and he is now tolerating room air with saturations >94% and no dyspnea or cough. Respiratory rate in the teens. (5) Hypertension Impression: Resolved. Elevated in the ER, briefly required nitroglycerin drip. Has stabilized and remained normotensive since admission. 1. Resume home medications Qualifiers: Hypertension type: essential hypertension Qualified Code(s): I10 - Essential (primary) hypertension (6) Myeloproliferative disorder Impression: Stable. Octavio 2+, with panmyelosis. On hydroxyurea 500 mg, recently restarted after a wound on his foot healed. Continue home meds. (7) History of coronary artery disease Impression: Stable. Extensive cardiac hx. Hx HLD, CAD with bare-metal stents x2 LAD 06/30/2013. S/p pacer for bradycardia. Last echo done in September 2019 showed mild concentric left ventricular hypertrophy, normal ventricular systolic function with EF 60-65%, mild aoritc stenosis and mild to moderate primary mitral regurgitation. Has been taking his meds as instructed, including crestor, aspirin, eliquis, lisinopril and metoprolol. EKG A-paced. Continue home meds. (8) Sepsis Impression: Resolved. Afebrile, VSS. Blood cultures with no growth to date, still pending. No sputum culture as he has not had a productive cough. He was able to wean to room air and denies dyspnea. WBC decreasing, remains elevated due to MDS. 1. 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 Per Pt's , he was walking around and working on restoring a car in the [employer] last evening. She reports he woke at 0200 with difficulty breathing unrelieved with his albuterol inhaler so she called EMS. In the ER he was complaining of mild substernal chest tightness. He also had a chronic non-productive cough. Denied fevers, chills, malaise. No recent sick contacts and negative for Covid in the ER. While in the ED he was hypertensive with tmax 101.3 rectally. He was tachypneic and hypoxic and placed on bipap with some relief. WBC in the 40s, likely combination of infection but higher due to MDS. CXR showed "diffuse patchy opacities throughout the lungs along with interstitial prominence and pulmonary vascularcongestion favors pulmonary edema. Differential includes atypical infectious process." He also has cardiomegaly and possibly pericardial effusion. Of note, he was seen in the ED 2/3 for left sided rib pain, and CXR did not show "any fluid collection around the lung nor any localized infiltrate such as pneumonia". Over the next few days he continued to complain of shortness of breath but worsened overnight. He was admitted to the ICU for close monitoring and started on IV antibiotics for sepsis and atypical pneumonia with continued bipap for acute respiratory failure with hypoxia. Additionally, Pt's discussed code status with the ER team and made him DNR/DNI. - CONSULTS | PROCEDURES Consultations: Social Work - HOSPITAL COURSE Hospital Course: Admitted with acutely worsened dyspnea and CXR concerning for pneumonia vs pulmonary edema. Covid negative, BNP elevated to <500. No chest pain. Lungs are coarse sounding with occasional expiratory wheezes at the bases. Initially required bipap to maintain oxygen saturations >92%, was able to wean to nasal cannula at 2200 07/01 and to room air 07/02,satting 94-99%. He denies dyspnea today and does not have a productive cough. Fluid resuscitated and started on IV abx on HD 1, transitioned to oral abx HD 2 given significant improvement in hypoxia. WBC has remained elevated due to his MDS. By HD 2 he was ambulating in the hallway with his , on room air and without dyspnea. His home meds were resumed HD 2. Reported baseline neuropathic pain to his lower extremities throughout the stay, remainder ROS negative by day of discharge. He was discharged home with his and a total 5 day course of abx. - ALLERGIES Allergies/Adverse Reactions: Allergies Allergy/AdvReac Type Severity Reaction Status Date / Time isosorbide AdvReac Nausea Verified 07/01/20 05:45 - MEDICATIONS Home Medications: Ambulatory Orders Medication Instructions Recorded Confirmed Multivitamin [Theragran] 1 each PO DAILY 04/10/18 07/01/20 Apixaban [Eliquis] 5 mg PO BID 02/13/19 07/01/20 Metoprolol Succinate [Toprol Xl] 50 mg PO DAILY 02/13/19 07/01/20 Rosuvastatin Calcium [Crestor] 20 mg PO DAILY 02/13/19 07/01/20 lisinopriL [Lisinopril] 2.5 mg PO DAILY 02/13/19 07/01/20 Aspirin [Adult Aspirin Regimen] 1 tab PO DAILY 12/08/19 07/01/20 Guaifenesin/Dextromethorphan 1 tab PO BID 12/08/19 07/01/20 [Mucinex Dm ER 600-30 mg Tablet] Amoxicillin/Potassium Clav 1 tab PO BID PRN 02/25/20 07/01/20 [Amox-Clav 875-125 mg Tablet] Pregabalin 75 mg PO DAILY 02/25/20 07/01/20 HYDROcod/ACETAM 5/325 [[place] 5/325] 1 ea PO Q6H PRN #18 tablet 06/28/20 07/01/20 Hydroxyurea [Hydrea] 500 mg PO DAILY 06/28/20 07/01/20 Lidocaine Patch 5% [Lidoderm Patch] 1 patch TOP DAILY PRN #10 patch 06/28/20 07/01/20 dexAMETHasone [Decadron] 4 mg PO DAILY #5 tablet 06/28/20 07/01/20 Albuterol Sulfate [Proair Hfa 1 puffs INH BID 07/01/20 07/01/20 Inhaler] Anagrelide HCl 1 mg PO BID 07/01/20 07/01/20 Azithromycin [Zithromax] 250 mg PO DAILY #2 tab 07/03/20 levoFLOXacin [Levaquin] 250 mg PO ONCE #8 tab 07/03/20 - PHYSICAL EXAM AT DISCHARGE General Appearance: positive: No acute distress, Alert Eyes Bilateral: positive: Normal inspection, PERRL, EOMI ENT: positive: ENT inspection nml, No signs of dehydration Neck: positive: Nml inspection Respiratory: positive: No respiratory distress, Wheezes (occasional exp wheeze s), Other (coarse bases) Cardiovascular: positive: Regular rate & rhythm, No murmur Peripheral Pulses: positive: 2+ Abdomen: positive: Non-tender, No organomegaly, Nml bowel sounds, No distention Skin: positive: Color nml, Other (scattered eschars on face, dry and stable with attached edges, no signs of wound infection) Extremities: positive: Non-tender, Full ROM, Nml appearance, No pedal edema, Other (foot and leg pain from peripheral neuropathy) Neurologic/Psychiatric: positive: Oriented x3 - LABS Result Diagrams: 07/03/20 04:40 07/03/20 04:40 - DIAGNOSTIC IMAGING Diagnostic Imaging Results: Final report reviewed Diagnostic Imaging Results Comments: 07/01 CXR: 1. Diffuse patchy opacities throughout the lungs along with interstitial prominence and pulmonary vascular congestion favoring pulmonary edema 2. Cardiomegaly - SEPSIS Current Stage of Sepsis: Resolved Possible source of Sepsis: Pulmonary Sepsis Criteria: Recorded Temperature greater than 38.3C or Less than 36C, Recorded Respiratory Rate greater than 20, Respiratory: Increasing oxygen requirements, WBC count greater than 12,000 or less than 4000, PLAY READER: altered consciousness (unrelated to primary neuro pathology) - FOLLOW UP Follow Up: PCP and [employer] - TIME SPENT Time Spent in Discharge (Minutes): 35
[2020-07-03 10:01] VITALS: BP 112/64
== END 2020-07-03 09:53 | disposition home or self-care (01) | DRG 871 ==
LOC: ED 05:37 → ICU 06:59
PROVIDERS: ADMIT Internal Medicine; ATTEND Specialist
DX: A41.9 Sepsis, unspecified organism (principal); J96.01 Acute respiratory failure with hypoxia; I11.0 Hypertensive heart disease with heart failure; I50.9 Heart failure, unspecified; E87.2 Acidosis; C94.6 Myelodysplastic disease, not elsewhere classified; J18.9 Pneumonia, unspecified organism; J81.0 Acute pulmonary edema; D47.1 Chronic myeloproliferative disease; N40.0 Benign prostatic hyperplasia without lower urinary tract symptoms; C94.40 Acute panmyelosis with myelofibrosis not having achieved remission; R65.20 Severe sepsis without septic shock; Z20.822 Contact with and (suspected) exposure to COVID-19; J47.9 Bronchiectasis, uncomplicated; I25.10 Atherosclerotic heart disease of native coronary artery without angina pectoris; I10 Essential (primary) hypertension; I08.0 Rheumatic disorders of both mitral and aortic valves; J32.9 Chronic sinusitis, unspecified; M19.90 Unspecified osteoarthritis, unspecified site; H91.90 Unspecified hearing loss, unspecified ear; Z96.659 Presence of unspecified artificial knee joint; Z66 Do not resuscitate; Z77.22 Contact with and (suspected) exposure to environmental tobacco smoke (acute) (chronic); Z79.82 Long term (current) use of aspirin; Z79.891 Long term (current) use of opiate analgesic; Z79.52 Long term (current) use of systemic steroids; Z79.899 Other long term (current) drug therapy; Z95.5 Presence of coronary angioplasty implant and graft; Z95.0 Presence of cardiac pacemaker; Z87.01 Personal history of pneumonia (recurrent)
CPT/HCPCS: 36415; 71045; 80048; 80053; 82803; 83605; 83690; 83735; 83880; 84100; 84484; 85025; 87040; 87150; 87631; 93005; 94660; 96365; 99285; A9270; J8540; 0202U

== ENCOUNTER 2020-09-21 08:00 | Outpatient (CLI) | payer MEDICARE, OTHER | END 2020-09-21 08:01 | disposition home or self-care (01) | LOC: LAB.WCP 08:00 | PROVIDERS: ATTEND Physician Assistant Medical | DX: Z20.822 Contact with and (suspected) exposure to COVID-19 (principal) ==

== ENCOUNTER 2020-12-10 19:31 | Emergency (ER) | payer MEDICARE, OTHER ==
[2020-12-10 20:23] LABS: BASOPHILS # (AUTO) 0.2 10^3/uL (0.0-0.1); BASOPHILS % (AUTO) 1.2 %; EOSINOPHILS # (AUTO) 0.1 10^3/uL (0.0-0.7); EOSINOPHILS % (AUTO) 0.6 %; HCT - HEMATOCRIT 34.4 % (42.0-52.0); HGB - HEMOGLOBIN 11.6 g/dL (14.0-18.0); LYMPHOCYTES % (AUTO) 5.2 %; MEAN CORPUSCULAR HEMOGLOBIN 44.6 pg (27.0-31.0); MEAN CORPUSCULAR HGB CONC 33.7 g/dL (32.0-36.0); MEAN CORPUSCULAR VOLUME 132.3 fL (80.0-94.0); MEAN PLATELET VOLUME 11.5 fL (7.4-11.4); MONOCYTES # (AUTO) 0.7 10^3/uL (0.0-1.0); MONOCYTES % (AUTO) 3.6 %; NEUTROPHILS # (AUTO) 16.9 10^3/uL (1.5-6.6); NRBC ABSOLUTE COUNT (AUTO) 0.03 x10^3/uL; NUCLEATED RED BLOOD CELLS AUTO 0.2 /100WBC; PLT - PLATELET COUNT 344 10^3/uL (130-450); RED CELL DISTRIBUTION WIDTH 19.6 % (12.0-15.0); WHITE BLOOD COUNT 19.9 x10^3/uL (4.8-10.8)
[2020-12-10 20:25] LABS: SLIDE REVIEW? Indicated
[2020-12-10 20:36] LABS: BILIRUBIN,URINE NEGATIVE (NEGATIVE); GLUCOSE, URINE (UA) NEGATIVE (NEGATIVE); KETONES,URINE (UA) TRACE mg/dL (NEGATIVE); LEUKOCYTE ESTERASE, URINE NEGATIVE (NEGATIVE); NITRITE,URINE NEGATIVE (NEGATIVE); OCCULT BLOOD,URINE NEGATIVE (NEGATIVE); PH,URINE 5.5 PH (5.0-7.5); PROTEIN,URINE TRACE mg/dL (NEGATIVE); UROBILINOGEN,URINE 0.2 (NORMAL) E.U./dL (NORMAL)
[2020-12-10 20:38] LABS: CLARITY,URINE CLEAR (CLEAR)
[2020-12-10 20:54] LABS: PLATELET ESTIMATE, MANUAL NORMAL (130-450,000) (NORMAL); PLATELET MORPHOLOGY NORMAL APPEARANCE (NORMAL); RBC MORPHOLOGY (MULTIPLE) 1+ MACROCYTOSIS (NORMAL); WBC MORPHOLOGY (MULTIPLE) 2+ HYPERSEG NEUT (NORMAL)
[2020-12-10 20:56] LABS: ALBUMIN 4.4 g/dL (3.2-5.5); ALBUMIN/GLOBULIN RATIO 1.5 (1.0-2.2); BILIRUBIN,TOTAL 0.7 mg/dL (0.2-1.0); CALCIUM 8.9 mg/dL (8.5-10.3); POTASSIUM 3.8 mmol/L (3.5-5.0); TOTAL PROTEIN 7.3 g/dL (6.7-8.2)
[2020-12-10] MEDS ORDERED: IOVERSOL 320 100 ML VIAL IVP ONE ×2 (21:13→21:34)
[2020-12-10] MEDS ORDERED: SODIUM CHLORIDE 0.9% 1,000 ML IV STA (21:29)
[2020-12-10] MEDS ORDERED: ONDANSETRON 4 MG/2 ML VIAL IVP STA (21:29)
[2020-12-10] MEDS ORDERED: HYDROmorphone 1 MG/ML CARPUJECT IVP STA (21:29)
[2020-12-10 21:45] LABS: ETOH - ETHANOL < 5.0 mg/dL; TRIGLYCERIDES 268 mg/dL
--- NOTE | 2020-12-10 21:47 | CT Report ---
PROCEDURE: Abdomen/Pelvis W INDICATIONS: abd pain, nausea CONTRAST: IV CONTRAST: Optiray 320 ml: 100 PO CONTRAST: *NO PO CONTRAST TECHNIQUE: After the administration of IV contrast, 5 mm thick sections acquired from the diaphragms to the symp hysis. 5 mm thick coronal and sagittal reformats were acquired. For radiation dose reduction, the f ollowing was used: automated exposure control, adjustment of mA and/or kV according to patient size. COMPARISON: 04/10/2018, 04/13/2016, 03/27/2016. FINDINGS: Image quality: Excellent. ABDOMEN: Lung bases: Small infiltrate/atelectasis in posterior lateral aspect of left lung base is seen. Mild dependent atelectasis in posterior right lung base is also noted. Heart size is enlarged, no pericard ial effusion. Pacemaker leads are seen in right atrium and right ventricle. Solid organs: Liver is borderline enlarged, no discrete hepatic lesion. Gallbladder contains calcifie d stones in its dependent portion not significantly changed from previous study. No gallbladder wall thickening or pericholecystic fluid. Spleen is enlarged and shows no discrete splenic lesion. Biliary system is non dilated. There is moderate peripancreatic fat stranding and small amount of peripancre atic fluid. No discrete drainable pseudocyst formation is noted. No discrete pancreatic lesion. No ad renal nodules. Kidneys demonstrate normal size and enhancement, without hydronephrosis. Peritoneum and bowel: Bowel loops demonstrate normal wall thickness and caliber. No free fluid or a ir. Colonic diverticulosis is seen, no CT evidence of acute diverticulitis. No abscess collection. Nodes and vessels: No retroperitoneal or mesenteric adenopathy by size criteria. Aorta and inferior vena cava are normal in size. Miscellaneous: No ventral hernias. PELVIS: Genitourinary: Bladder wall thickness is normal. Miscellaneous: No inguinal hernias or adenopathy. Bones: No suspicious bony lesions. No vertebral body compression fractures. Degenerative disc dise ase at L4-5 and L5-S1 levels are seen. IMPRESSION: 1. Finding is suggestive of acute pancreatitis. Small amount of peripancreatic fluid. No discrete brent inable pseudocyst formation is noted. 2. Hepatosplenomegaly, no discrete hepatic or splenic lesion. 3. Cholelithiasis. No CT evidence of acute cholecystitis. No biliary ductal dilatation. 4. No bowel obstruction or abnormal bowel wall thickening. No free fluid of free air. Colonic diverti culosis without evidence of acute diverticulitis. 5. Left basilar atelectasis/small infiltrate. Dependent atelectasis in posterior right lung base. Reviewed by: Benson Rogers MD on 12/10/2020 9:46 PM PDT Approved by: Benson Rogers MD on 12/10/2020 9:46 PM PDT Station ID: [id number]
--- NOTE | 2020-12-10 22:12 | ED Physician Documentation ---
PD HPI ABD PAIN - Stated complaint Stated Complaint: ABD PX/NAUSEA - Chief complaint Chief Complaint: Abd Pain - History obtained from History obtained from: Patient - History of Present Illness Timing - onset: Today Timing - duration: Days (1) Timing - details: Gradual onset Pain level max: 7 Pain level now: 5 Quality: Cramping, Aching, Pain Location: Epigastric Radiation: No: Chest, , Lower back, Left flank, Left shoulder, Right flank, Right shoulder, Upper back Improved by: Other (nothing) Worsened by: Eating, Moving Associated symptoms: Nausea. No: Fever, Vomiting, Hematemesis, Diarrhea, Constipation, Melena, Hematochezia, Dysuria, Hematuria, Chest pain Similar symptoms before: Has not had sx before Recently seen: Not recently seen - Additional information Additional information: Patient states he has had upper abdominal pain today. He also states that occasionally he has a lump or bulge near his bellybutton. He states that this goes back and when he lays down. No fevers. No vomiting. Has a history of myeloproliferative disorder. Review of Systems Ten Systems: 10 systems reviewed and negative Constitutional: denies: Fever, Chills Ears: denies: Ear pain Nose: denies: Rhinorrhea / runny nose, Congestion Respiratory: denies: Cough GI: reports: Nausea. denies: Vomiting, Diarrhea, Hematemesis : denies: Dysuria Skin: denies: Rash Musculoskeletal: denies: Neck pain, Back pain Neurologic: denies: Headache PD PAST MEDICAL HISTORY - Past Medical History Past Medical History: Yes Cardiovascular: High cholesterol, Coronary artery disease, Arrhythmia, Other Respiratory: COPD, Pneumonia, Shortness of breath, Other Neuro: None, Peripheral neuropathy Endocrine/Autoimmune: Other GI: Hemorrhoids, Diverticulitis, Cholelithiasis [employer]MENT: None : Benign prostate hypertrophy HEENT: Chronic sinusitis, Chronic hearing loss Psych: None Musculoskeletal: Osteoarthritis Derm: Other Other Past Medical History: Miloproliferative JAKII disease - Past Surgical History Past Surgical History: Yes General: Appendectomy, Colonoscopy, Other Ortho: Knee replacement Cardiovascular: CABG, Coronary stent, Pacemaker HEENT: Tonsil/Adenoidectomy Derm: Skin cancer surgery - Present Medications Home Medications: Ambulatory Orders Medication Instructions Recorded Confirmed Multivitamin [Theragran] 1 each PO DAILY 04/10/18 12/10/20 Apixaban [Eliquis] 5 mg PO BID 02/13/19 12/10/20 Metoprolol Succinate [Toprol Xl] 50 mg PO DAILY 02/13/19 12/10/20 Rosuvastatin Calcium [Crestor] 20 mg PO DAILY 02/13/19 12/10/20 lisinopriL [Lisinopril] 2.5 mg PO DAILY 02/13/19 12/10/20 Aspirin [Adult Aspirin Regimen] 1 tab PO DAILY 12/08/19 12/10/20 Guaifenesin/Dextromethorphan 1 tab PO BID 12/08/19 12/10/20 [Mucinex Dm ER 600-30 mg Tablet] Amoxicillin/Potassium Clav 1 tab PO BID PRN 02/25/20 12/10/20 [Amox-Clav 875-125 mg Tablet] HYDROcod/ACETAM 5/325 [[place] 5/325] 1 ea PO Q6H PRN #18 tablet 06/28/20 12/10/20 Hydroxyurea [Hydrea] 500 mg PO TID 06/28/20 12/10/20 Lidocaine Patch 5% [Lidoderm Patch] 1 patch TOP DAILY PRN #10 patch 06/28/20 12/10/20 Albuterol Sulfate [Proair Hfa 1 puffs INH BID 07/01/20 12/10/20 Inhaler] - Allergies Allergies/Adverse Reactions: Allergies Allergy/AdvReac Type Severity Reaction Status Date / Time isosorbide AdvReac Nausea Verified 12/10/20 19:57 - Living Situation Living Situation: reports: With family Living Arrangement: reports: At home - Social History Does the pt smoke?: No Smoking Status: Never smoker Does the pt drink ETOH?: Yes Does the pt have substance abuse?: No - Family History Family history: reports: Non contributory - Immunizations Immunizations are current?: Yes - POLST Patient has POLST: Yes POLST Status: DNR PD ED PE NORMAL - Vitals Vital signs reviewed: Yes - General General: Alert and oriented X 3, No acute distress - HEENT HEENT: Moist mucous membranes - Neck Neck: Supple, no meningeal sign - Cardiac Cardiac: RRR, Strong equal pulses - Respiratory Respiratory: No respiratory distress, Clear bilaterally - Abdomen Abdomen: Soft, Non distended, Other (Tender palpation epigastric without peritoneal signs. Small reducible periumbilical hernia) - Back Back: No CVA TTP, No spinal TTP - Derm Derm: Warm and dry - Extremities Extremities: No edema - Neuro Neuro: Alert and oriented X 3 - Psych Psych: Normal mood, Normal affect Results - Vitals Vitals: Vital Signs - 24 hr 12/10/20 12/10/20 19:52 20:14 Temperature 36.3 C L 36.3 C L Heart Rate 71 71 Respiratory 16 16 Rate Blood Pressure 131/63 H 131/63 H O2 Saturation 98 98 Oxygen O2 Source Room air - Labs Labs: Laboratory Tests 12/10/20 12/10/20 12/10/20 20:10 20:10 20:10 WBC 19.9 H RBC 2.60 L Hgb 11.6 L Hct 34.4 L MCV 132.3 H MCH 44.6 H MCHC 33.7 RDW 19.6 H Plt Count 344 MPV 11.5 H Neut # (Auto) 16.9 H Lymph # (Auto) 1.0 L [place] # (Auto) 0.7 Eos # (Auto) 0.1 Baso # (Auto) 0.2 H Absolute Nucleated RBC 0.03 Nucleated RBC % 0.2 Manual Slide Review Indicated WBC Morphology 2+ HYPERSEG NEUT Platelet Estimate NORMAL (130-450,000) Platelet Morphology NORMAL APPEARANCE RBC Morph Micro Appear 1+ MACROCYTOSIS Sodium 139 Potassium 3.8 Chloride 107 Carbon Dioxide 24 Anion Gap 8.0 BUN 17 Creatinine 1.0 Estimated GFR (MDRD) 72 L Glucose 145 H Calcium 8.9 Total Bilirubin 0.7 AST 45 H ALT 36 Alkaline Phosphatase 75 Total Protein 7.3 Albumin 4.4 Globulin 2.9 Albumin/Globulin Ratio 1.5 Triglycerides 268 H Lipase 2088 H Urine Color Urine Clarity Urine pH Ur Specific Marion Urine Protein Urine Glucose (UA) Urine Ketones Urine Occult Blood Urine Nitrite Urine Bilirubin Urine Urobilinogen Ur Leukocyte Esterase Ur Microscopic Review Urine Culture Comments Ethyl Alcohol < 5.0 12/10/20 20:15 WBC RBC Hgb Hct MCV MCH MCHC RDW Plt Count MPV Neut # (Auto) Lymph # (Auto) [place] # (Auto) Eos # (Auto) Baso # (Auto) Absolute Nucleated RBC Nucleated RBC % Manual Slide Review WBC Morphology Platelet Estimate Platelet Morphology RBC Morph Micro Appear Sodium Potassium Chloride Carbon Dioxide Anion Gap BUN Creatinine Estimated GFR (MDRD) Glucose Calcium Total Bilirubin AST ALT Alkaline Phosphatase Total Protein Albumin Globulin Albumin/Globulin Ratio Triglycerides Lipase Urine Color DARK YELLOW Urine Clarity CLEAR Urine pH 5.5 Ur Specific Marion >=1.030 H Urine Protein TRACE Urine Glucose (UA) NEGATIVE Urine Ketones TRACE Urine Occult Blood NEGATIVE Urine Nitrite NEGATIVE Urine Bilirubin NEGATIVE Urine Urobilinogen 0.2 (NORMAL) Ur Leukocyte Esterase NEGATIVE Ur Microscopic Review NOT INDICATED Urine Culture Comments NOT INDICATED Ethyl Alcohol PD MEDICAL DECISION MAKING - ED course Complexity details: reviewed results, re-evaluated patient, considered differential, d/w patient, d/w family ED course: Patient is a 80-year-old male with pancreatitis. Does drink 2 drinks of scotch per night. Is on lisinopril as well. Does not have any history of pancreatitis. Abdominal ultrasound was ordered as there are gallstones noted on CT to rule out any gallstone pancreatitis. LFTs are not suggestive of this. Patient will be signed out to Dr. Syed for repeat evaluation after ultrasound read is back. Patient is currently comfortable. Fluids, Dilaudid and Zofran given. This document was made in part using voice recognition software. While efforts are made to proofread this document, sound alike and grammatical errors may occur. IMPRESSION: 1. Finding is suggestive of acute pancreatitis. Small amount of peripancreatic fluid. No discrete drainable pseudocyst formation is noted. 2. Hepatosplenomegaly, no discrete hepatic or splenic lesion. 3. Cholelithiasis. No CT evidence of acute cholecystitis. No biliary ductal dilatation. 4. No bowel obstruction or abnormal bowel wall thickening. No free fluid of free air. Colonic diverticulosis without evidence of acute diverticulitis. 5. Left basilar atelectasis/small infiltrate. Dependent atelectasis in posterior right lung base. Departure - Departure Clinical Impression: Pancreatitis Qualifiers: Chronicity: acute Pancreatitis type: unspecified pancreatitis type Acute pancreatitis complication: unspecified Qualified Code(s): K85.90 - Acute pancreatitis without necrosis or infection, unspecified Condition: Stable
--- NOTE | 2020-12-10 23:57 | Ultrasound Report ---
PROCEDURE: Abdomen Limited INDICATIONS: RUQ abd pain, gallstones on Ct TECHNIQUE: Real-time focused scanning was performed of the right upper quadrant, with image documentation. COMPARISON: CT abdomen pelvis 12/10/2020 FINDINGS: The liver appears increased in echogenicity with coarse sonographic echotexture compatible with fatty infiltration. Multiple dependent gallstones are identified as well as a stone in the gallbladder neck measuring up to 0.6 cm which appears impacted. No gallbladder wall thickening or pericholecystic fluid. No intrahepatic biliary ductal dilatation. The visualized common bile duct demonstrates borderline di stention, measuring up to 0.8 cm. The visualized pancreas demonstrates no discrete peripancreatic fluid collection. The right kidney measures up to 11.5 cm. No hydronephrosis. IMPRESSION: 1. Cholelithiasis with a suspected impacted stone in the gallbladder neck. However, no gallbladder wa ll thickening or pericholecystic fluid are identified to suggest definite cholecystitis at this time. 2. Borderline biliary ductal dilatation, with no discrete common duct stone visualized. Recommend cor relation with laboratory values. Reviewed by: Antonio Nixon MD on 12/10/2020 11:55 PM PDT Approved by: Antonio Nixon MD on 12/10/2020 11:55 PM PDT Station ID: [id number]
--- NOTE | 2020-12-11 00:37 | ED Physician Documentation ---
ED Addendum - Addendum Addendum: 12/11/20 00:37 us RUQ Impression: 1. Cholelithiasis with a suspected impacted stone in the gallbladder neck. However, no gallbladder wall thickening or pericholecystic fluid are identified to suggest definite cholecystitis at this time. 2 borderline biliary ductal dilation, with no discrete common duct stone visualized. Recommend correlation with laboratory values. 12/11/20 01:39 80-year-old male who presents today with abdominal pain since 10 AM was able to eat dinner this evening without nausea or vomiting and his pain increased. He had a pork chop. He is found to have bed gallstone lodged in the neck of the gallbladder and pancreatitis. There is no biochemical evidence of obstruction. The patient has improvement with pain medication and wants to go home. His would like to take him home. I consulted our surgeon Dr. Bishop who recommends a liquid diet pain medication nausea medicine and follow-up in the clinic for consideration of cholecystectomy. I have asked the patient to follow-up with his primary care doctor tomorrow for referral to the surgeon urgently.
[2020-12-11] MEDS ORDERED: HYDROcod/ACET 5/325 Prepack 4 PO STA (01:47)
[2020-12-11] MEDS ORDERED: ONDANSETRON ODT 4 MG Prepack 2 TL STA (01:47)
[2020-12-11 02:06] VITALS: BP 145/70
== END 2020-12-11 02:10 | disposition home or self-care (01) ==
LOC: ED 19:31
DX: K85.90 Acute pancreatitis without necrosis or infection, unspecified (principal); K80.80 Other cholelithiasis without obstruction
CPT/HCPCS: 36415; 74177; 76705; 80053; 81003; 83690; 84478; 85025; 96361; 96374; 96375; 99284; G0480; J1170; Q9967; 80320; 81001; 87086

== ENCOUNTER 2020-12-14 08:00 | Outpatient (CLI) | payer MEDICARE, OTHER ==
[2020-12-14 11:55] LABS: BASOPHILS % (AUTO) 1.6 %; EOSINOPHILS % (AUTO) 1.1 %; HCT - HEMATOCRIT 35.7 % (42.0-52.0); HGB - HEMOGLOBIN 11.6 g/dL (14.0-18.0); LYMPHOCYTES % (AUTO) 5.9 %; MEAN CORPUSCULAR HEMOGLOBIN 43.8 pg (27.0-31.0); MEAN CORPUSCULAR HGB CONC 32.5 g/dL (32.0-36.0); MEAN CORPUSCULAR VOLUME 134.7 fL (80.0-94.0); MEAN PLATELET VOLUME 12.1 fL (7.4-11.4); MONOCYTES % (AUTO) 4.3 %; NEUTROPHILS % (AUTO) 84.1 %; PLT - PLATELET COUNT 348 10^3/uL (130-450); RED BLOOD COUNT 2.65 10^6/uL (4.70-6.10); RED CELL DISTRIBUTION WIDTH 18.5 % (12.0-15.0); WHITE BLOOD COUNT 17.7 x10^3/uL (4.8-10.8)
[2020-12-14 12:01] LABS: ABNORMAL LYMPHS % (MANUAL) 0 %
[2020-12-14 12:19] LABS: ALBUMIN 4.1 g/dL (3.2-5.5); ALBUMIN/GLOBULIN RATIO 1.4 (1.0-2.2); BILIRUBIN,TOTAL 0.8 mg/dL (0.2-1.0); CALCIUM 8.9 mg/dL (8.5-10.3); CREATININE 0.9 mg/dL (0.6-1.2); POTASSIUM 3.9 mmol/L (3.5-5.0); TOTAL PROTEIN 7.1 g/dL (6.7-8.2)
[2020-12-14 12:51] LABS: BAND NEUTROPHILS % (MANUAL) 2 %; BASOPHILS # (MANUAL) 0.4 10^3/uL (0-0.1); BASOPHILS % (MANUAL) 2 %; EOSINOPHILS # (MANUAL) 0.2 10^3/uL (0-0.7); LYMPHOCYTES # (MANUAL) 1.2 10^3/uL (1.5-3.5); LYMPHOCYTES % (MANUAL) 7 %; MONOCYTES # (MANUAL) 0.5 10^3/uL (0.0-1.0); NEUTROPHILS # (MANUAL) 15.4 10^3/uL (1.5-6.6)
[2020-12-14 12:52] LABS: PLATELET ESTIMATE, MANUAL NORMAL (130-450,000) (NORMAL); PLATELET MORPHOLOGY NORMAL APPEARANCE (NORMAL)
[2020-12-14 12:54] LABS: DIFFERENTIAL COMMENT MANUAL DIFFERENTIAL; WBC MORPHOLOGY (MULTIPLE) 2+ HYPERSEG NEUT (NORMAL)
== END 2020-12-14 23:59 | disposition home or self-care (01) ==
LOC: LAB.WCP 08:00
PROVIDERS: ATTEND Family Medicine
DX: K80.20 Calculus of gallbladder without cholecystitis without obstruction (principal); K85.90 Acute pancreatitis without necrosis or infection, unspecified; C94.6 Myelodysplastic disease, not elsewhere classified
CPT/HCPCS: 36415; 80053; 83690; 85025

== ENCOUNTER 2021-02-19 13:55 | Outpatient (CLI) | payer MEDICARE, OTHER | END 2021-02-19 13:56 | disposition home or self-care (01) | LOC: COV 13:55 | PROVIDERS: ATTEND Surgery | DX: Z01.812 Encounter for preprocedural laboratory examination (principal); K85.10 Biliary acute pancreatitis without necrosis or infection; Z20.822 Contact with and (suspected) exposure to COVID-19 ==

== ENCOUNTER 2021-06-19 10:58 | Outpatient (CLI) | payer MEDICARE, OTHER ==
--- NOTE | 2021-06-19 14:21 | Ultrasound Report ---
PROCEDURE: Ankle Brachial Index INDICATIONS: CAD TECHNIQUE: Ankle-brachial indices were obtained bilaterally and recorded. COMPARISONS: None. FINDINGS: Right: Distal posterior tibial artery: 29.2 cm/s, monophasic Dorsalis pedis artery: 22.5 cm/s, monophasic Left: Distal posterior tibial artery: 70.6 cm/s, biphasic Dorsalis pedis artery: 31.3 cm/s, biphasic Blood pressure measurements: Right brachial: 118/60 Left brachial: 130/60 Right ankle: 96/69 Left ankle: 127/69 Right ankle brachial index (BRII): 0.74 Left ankle brachial index (BRII): 0.98 Healing potential: Ankle pressures >55 mm Hg in non-diabetics and >80 mm Hg in diabetics are likely to achieve primary h ealing of ischemic foot ulcers. Toe pressures >30 mm Hg are likely to achieve primary healing of ischemic foot ulcers, toe or transme tatarsal amputations. IMPRESSION: Mildly decreased right ankle-brachial index is suspicious for mild peripheral arterial disease. Left ankle brachial index within normal limits. Reviewed by: Marcelino Hernandez MD on 06/19/2021 2:20 PM PST Approved by: Marcelino Hernandez MD on 06/19/2021 2:20 PM PST Station ID: [id number]
== END 2021-06-19 10:59 | disposition home or self-care (01) ==
LOC: DI 10:58
PROVIDERS: ATTEND Physician Assistant Medical
DX: I25.10 Atherosclerotic heart disease of native coronary artery without angina pectoris (principal); R94.39 Abnormal result of other cardiovascular function study
CPT/HCPCS: 93922

== ENCOUNTER 2022-02-04 08:00 | Outpatient (CLI) | payer MEDICARE, OTHER | END 2022-02-04 23:59 | disposition home or self-care (01) | LOC: LAB.N 08:00 | PROVIDERS: ATTEND Physician Assistant Medical | DX: H60.502 Unspecified acute noninfective otitis externa, left ear (principal) | CPT/HCPCS: 87070; 87181; 87205 ==

== ENCOUNTER 2022-05-30 08:32 | Outpatient (CLI) | payer MEDICARE, OTHER | END 2022-05-30 08:33 | disposition home or self-care (01) | LOC: LAB.N 08:32 | PROVIDERS: ATTEND Physician Assistant Medical | DX: Z53.9 Procedure and treatment not carried out, unspecified reason (principal) ==

== ENCOUNTER 2022-07-16 13:15 | Outpatient (CLI) | payer MEDICARE, OTHER | END 2022-07-16 13:30 | disposition home or self-care (01) | LOC: LAB.N 13:15 | PROVIDERS: ATTEND Physician Assistant | DX: B37.0 Candidal stomatitis (principal) | CPT/HCPCS: 81599 ==

== ENCOUNTER 2023-03-19 14:55 | Outpatient (CLI) | payer MEDICARE, OTHER ==
[2023-03-19 15:43] LABS: CHOL/HDL RATIO 3.7 (<5.0); CHOLESTEROL 84 mg/dL; HDL CHOLESTEROL 23 mg/dL; LDL CHOLESTEROL,CALCULATED 30 mg/dL; LDL/HDL RATIO 1.3 (<3.6); TRIGLYCERIDES 157 mg/dL (48-352); VLDL CHOLESTEROL 31 mg/dL
== END 2023-03-19 14:56 | disposition home or self-care (01) ==
LOC: LAB 14:55
PROVIDERS: ATTEND Physician Assistant Medical
DX: E78.5 Hyperlipidemia, unspecified (principal); Z12.5 Encounter for screening for malignant neoplasm of prostate
CPT/HCPCS: 36415; 80061; G0103; 83721; 84153

== ENCOUNTER 2023-10-06 08:00 | Outpatient (CLI) | payer MEDICARE, OTHER | END 2023-10-06 23:59 | disposition home or self-care (01) | LOC: LAB.WCP 08:00 | PROVIDERS: ATTEND Physician Assistant Medical | DX: M86.179 Other acute osteomyelitis, unspecified ankle and foot (principal) | CPT/HCPCS: 87070; 87205 ==

== ENCOUNTER 2023-10-21 12:13 | Outpatient (CLI) | payer MEDICARE, OTHER ==
--- NOTE | 2023-10-21 13:48 | XRAY Report ---
PROCEDURE: Toe(s) 2+V LT INDICATIONS: OSTEOMYELITIS TECHNIQUE: 3 views of the first toe(s) acquired. COMPARISON: X-ray toes 08/03/2019 FINDINGS: Bones: No fractures or dislocations. No suspicious bony lesions. Scattered IP degenerative narrowi ng. There is questionable amputation versus limited visualization secondary to positioning of the dis nasir second digit and recommend clinical correlation. Soft tissues: No suspicious soft tissue densities. First digit soft tissue edema is present. IMPRESSION: First digit soft tissue edema without visualized underlying appearance of osteomyelitis. If concern p ersists, bone scan or MRI is recommended. Reviewed by: Maria Luisa Thakkar MD on 10/21/2023 1:47 PM PDT Approved by: Maria Luisa Thakkar MD on 10/21/2023 1:47 PM PDT Station ID: [id number]
== END 2023-10-21 12:14 | disposition home or self-care (01) ==
LOC: DI 12:13
PROVIDERS: ATTEND Family Medicine
DX: M86.9 Osteomyelitis, unspecified (principal); L97.822 Non-pressure chronic ulcer of other part of left lower leg with fat layer exposed; D84.9 Immunodeficiency, unspecified
CPT/HCPCS: 73660

== ENCOUNTER 2024-01-16 11:02 | Outpatient (CLI) | payer MEDICARE, OTHER | END 2024-01-16 11:03 | disposition home or self-care (01) | LOC: LAB.R 11:02 | PROVIDERS: ATTEND Internal Medicine | DX: K52.9 Noninfective gastroenteritis and colitis, unspecified (principal) | CPT/HCPCS: 87493 ==

== ENCOUNTER 2024-01-28 08:00 | Outpatient (CLI) | payer MEDICARE, OTHER | END 2024-01-28 23:59 | disposition home or self-care (01) | LOC: LAB.WCP 08:00 | PROVIDERS: ATTEND Physician Assistant Medical | DX: H60.90 Unspecified otitis externa, unspecified ear (principal) | CPT/HCPCS: 87070; 87205 ==

== ENCOUNTER 2024-02-03 09:56 | Outpatient (CLI) | payer MEDICARE, OTHER ==
[2024-02-03 10:29] LABS: CALCIUM 8.9 mg/dL (8.5-10.3)
== END 2024-02-03 09:57 | disposition home or self-care (01) ==
LOC: LAB 09:56
PROVIDERS: ATTEND Physician Assistant Medical
DX: E87.5 Hyperkalemia (principal)
CPT/HCPCS: 36415; 80048

== ENCOUNTER 2024-02-17 10:55 | Outpatient (CLI) | payer MEDICARE, OTHER ==
--- NOTE | 2024-02-17 12:00 | XRAY Report ---
PROCEDURE: Foot 3+V LT INDICATIONS: LEFT HALLUX OSTEOMYELITIS TECHNIQUE: 3 views of the foot were acquired. COMPARISON: CT foot dated 11/11/2023. FINDINGS: Bones: No fractures or dislocations. Slight interval increase in bone loss at the distal aspect of t he distal phalanx of the great toe consistent with osteomyelitis. However, active osteomyelitis canno t be present. No suspicious bony lesions. Soft tissues: No tibiotalar joint effusion. Achilles tendon appears normal. IMPRESSION: Findings are consistent with progression of bony loss of the distal aspect of the distal phalanx of g reat toe since the previous study from October,. However, osteomyelitis may potentially have been a dequately treated. Comment: Consider foot MRI with and without contrast. Reviewed by: Dandy Gan MD on 02/17/2024 11:59 AM PDT Approved by: Dandy Gan MD on 02/17/2024 11:59 AM PDT Station ID: [id number]
== END 2024-02-17 10:56 | disposition home or self-care (01) ==
LOC: DI 10:55
PROVIDERS: ATTEND Family Medicine
DX: M86.9 Osteomyelitis, unspecified (principal); M79.675 Pain in left toe(s)